=== PATIENT | male | born 1940 | race Caucasian/White ===

== ENCOUNTER 2019-12-28 21:08 | Emergency (ER) | payer MEDICARE, SELFPAY ==
--- NOTE | ~2019-12-28 | CT_ITS ---
EXAMINATION: CT brain wo con, CT facial & cervical spine wo DATE: 12/28/2019 21:55 INDICATION: Face forward fall with loss of consciousness and neck pain. TECHNIQUE: 1. Computed tomography (CT) of the head was performed without intravenous contrast. Sagittal and jan nal reconstructions were obtained. The mA was adjusted according to patient size. Iterative reconstru ction technique was employed. The dose-length product was 681 mGy-cm. 2. CT of the maxillofacial bones and cervical spine was performed without intravenous contrast. Sagit raulito and coronal reconstructions were obtained. Automated exposure control and iterative reconstructio n technique were employed. The dose-length product was 446 mGy-cm. COMPARISON: 01/16/2018 FINDINGS: Head CT: Right frontal scalp hematoma. No calvarial fracture. No acute intracranial hemorrhage, acute infarcti on or abnormal extra axial fluid collection. Symmetric prominence of the sulci consistent with mild t o moderate age-appropriate diffuse cerebral volume loss. Ventricles are normal and symmetric. No mass /mass effect. Mastoid air cells and middle ear cavities are clear. Maxillofacial CT: Maxillofacial bones: Changes of bilateral intraocular lens replacement. Orbits are otherwise normal. No maxillofacial frac tures. Minimal mucosal thickening in the right sphenoid and bilateral ethmoid sinuses. Temporomandibu lar joints are normal alignment. Cervical spine: C4-C6 laminectomies and partial C3 laminectomy. C3-C7 posterior spinal fusion with bilateral vertical natalie and lateral mass screw fixations. Alignment is unchanged with straightening of the normal cervic al lordosis. Severe osteoarthritis at the atlantoaxial articulation. Vertebral body heights are berry l. There is loss of disc height throughout the cervical spine with fusion across portions of the unco vertebral joints and disc spaces from C3 through C7. There is a nondisplaced oblique superior likely hyperextension teardrop fracture at the anterosuperior aspect of the T1 vertebral body. Severe disc h eight loss with degenerative endplate changes at T1-T2 and T2-T3. IMPRESSION: 1. Normal aging brain with mild to moderate diffuse volume loss. No acute intracranial process. 2. No calvarial or maxillofacial fractures. 3. Nondisplaced hyperextension teardrop fracture at the anterosuperior aspect of the T1 vertebral bod y. 4. Stable appearance of an instrumented C3-C7 posterior spinal fusion. This Reviewed, dictated and finalized at location A. ING BALL MARKER IMPRESSION: 1. Normal aging brain with mild to moderate diffuse volume loss. No acute intra cranial process. 2. No calvarial or maxillofacial fractures. 3. Nondisplaced hyperextension teardrop fracture at the anterosuperior aspect o f the T1 vertebral body. 4. Stable appearance of an instrumented C3-C7 posterior spinal fusion. This
--- NOTE | ~2019-12-28 | XR_ITS ---
EXAMINATION: XR shoulder RT min 2V DATE: 12/28/2019 22:08 INDICATION: Right shoulder pain post fall TECHNIQUE: AP internally and externally rotated, AP oblique externally rotated and transscapular Y vi ews of the right shoulder were obtained. COMPARISON: None FINDINGS: Normal alignment. No fracture.Mild glenohumeral and acromioclavicular osteoarthritis. Partially visu alized instrumented posterior spinal fusion in the mid to lower cervical spine. Soft tissues are unre markable. IMPRESSION: Mild osteoarthritis at the right shoulder with no acute osseous abnormality. Reviewed, dictated and finalized at location A. E PURCHASE DRIVER
--- NOTE | ~2019-12-28 | XR_ITS ---
EXAMINATION: XR hand RT min 3V, XR wrist RT min 3V DATE: 12/28/2019 22:07 INDICATION: Posterior right hand and wrist pain. TECHNIQUE: 1. Posteroanterior, ulnar deviation, oblique, and lateral views of the right wrist were obtained. 2. Dorsal palmar, oblique and lateral views of the right hand were obtained. COMPARISON: None. FINDINGS: Alignment of the right hand and wrist are normal. No fracture identified. The articular osteoarthriti s, severe at the first carpometacarpal and fourth and fifth distal interphalangeal joints, moderate s everity at the first interphalangeal and second and third distal interphalangeal joints and mild at t he first metacarpophalangeal and remaining interphalangeal joints. Soft tissues are unremarkable.. IMPRESSION: 1. No acute osseous abnormality. Right hand and wrist. 2. Moderate to severe polyarticular osteoarthritis with typical distribution. Reviewed, dictated and finalized at location A. RVISOR QUALITY CONTROL IMPRESSION: 1. No acute osseous abnormality. Right hand and wrist. 2. Moderate to severe polyarticular osteoarthritis with typical distribution.
--- NOTE | ~2019-12-28 | XR_ITS ---
EXAMINATION: XR shoulder LT min 2V DATE: 12/28/2019 22:07 INDICATION: Bilateral shoulder pain post fall TECHNIQUE: AP internally and externally rotated, AP oblique externally rotated and transscapular Y vi ews of the left shoulder were obtained. COMPARISON: None FINDINGS: Normal alignment. No fracture.Mild glenohumeral and acromioclavicular osteoarthritis. Partially visu alized instrumented posterior spinal fusion in the mid to lower cervical spine. IMPRESSION: Mild osteoarthritis without acute osseous abnormality at the left shoulder. Reviewed, dictated and finalized at location A. T TECHNICIAN/CONTROL ROOM OPERATOR
--- NOTE | ~2019-12-28 | CT_ITS ---
EXAMINATION: CT chest abdomen pelvis w con DATE: 12/28/2019 21:56 INDICATION: Diffuse body pain and more focal left-sided chest pain post fall. TECHNIQUE: Computed tomography (CT) of the chest, abdomen, and pelvis was performed with 100 mL Omnip aque-350 intravenous contrast. Automated exposure control and iterative reconstruction technique were employed. The dose-length product was 1369.61 mGy-cm. COMPARISON: 03/26/2019 FINDINGS: CHEST CT: Mild dependent atelectasis in the bilateral lower lobes. A few bilateral calcified pulmonary nodules consistent with old granulomatous disease. No pneumonia, pulmonary edema, pleural effusion or pneumot horax. Heart size is normal. Atherosclerotic coronary artery calcifications. No pericardial effusion. No pathologically enlarged thoracic lymphadenopathy. Bilateral gynecomastia. Small sliding-type hiat al hernia. Nondisplaced hyperextension teardrop fracture at the anterosuperior aspect of the T1 verte bral body. No other fractures identified. Mild thoracic dextrocurvature with mild to moderate spondyl osis. There are bridging osteophytes at multiple levels consistent with diffuse idiopathic skeletal h yperostosis (DISH). ABDOMEN/PELVIS CT: A few scattered hepatic steatosis with 6 mm low-attenuation cyst at the dome of the liver. Gallbladde r, spleen and bilateral adrenal glands are normal. Several small dystrophic calcification is in the p ancreas consistent with sequela of chronic pancreatitis. Bilateral renal cysts up to 1 cm. There is m ild colonic diverticulosis with a sigmoid predominance. There is no adjacent inflammatory change to suggest diverticulitis. Small bowel and appendix are normal. Postoperative change of prior prostatect rosaura and likely bilateral pelvic lymph node dissections with multiple surgical clips in the pelvis. Bl adder is normal. No free intraperitoneal gas or fluid. No pathologically enlarged abdominal or pelvic lymphadenopathy. There are lumbar spondylosis. Chronic mild superior endplate compression fracture a t L4. IMPRESSION: 1. Nondisplaced hyperextension teardrop fracture at the anterosuperior aspect of the T1 vertebral bod y. No other acute osseous abnormality in the chest, abdomen or pelvis. 2. No acute intrathoracic, abdominal or pelvic process. Reviewed, dictated and finalized at location A. IDENTIFICATION SPECIALIST IMPRESSION: 1. Nondisplaced hyperextension teardrop fracture at the anterosuperior aspect o f the T1 vertebral body. No other acute osseous abnormality in the chest, abdom en or pelvis. 2. No acute intrathoracic, abdominal or pelvic process.
[2019-12-28 21:07] VITALS: BP 153/97; PULSE 100; RESP 14; TEMP 36.5; O2SAT 100
--- NOTE | 2019-12-28 21:25 | ED.FALL ---
HPI - Fall General Chief Complaint: Fall Stated Complaint: fall Time Seen by Provider: 12/28/19 21:25 Source: patient Mode of arrival: EMS Limitations: no limitations History of Present Illness HPI Narrative: The pt is an 79 y/o male who presents to the ED with c/o a recent fall that occurred this evening. The pt states that he was using his walker to go down a 5-6 inch step when his walker collapsed under him. He fell on top of his walker and flat onto his face. The pt states that he hurts from the bottom of [his] feet to the top of [his] head . He reports rt wrist pain, bilateral shoulder pain, CP, ABD pain, CASIANO, lt hand numbess, and neck pain, but denies LOC. The pt has a PMHx of peripheral neuropathy, as well as a SHx of a c-spine fusion. The pt's Tetanus shot is up to date. MD complaint: fall Onset (ago): hour(s) (this evening) Fall from: down stairs (#) (1) Loss of consciousness: none Associated symptoms (after fall): headache, neck pain, chest pain, abdominal pain and other (rt wrist pain, bilateral shoulder pain) Related Data Home Medications Medication Instructions Recorded Confirmed fenofibrate mg 12/28/19 Allergies Allergy/AdvReac Type Severity Reaction Status Date / Time meperidine Allergy Severe anaphylaxis Verified 12/28/19 21:21 Penicillins Allergy Severe anaphylaxis Verified 12/28/19 21:21 narcotics AdvReac Mild Unknown Uncoded 12/28/19 21:21 Review of Systems Review of Systems: All systems reviewed & are unremarkable except as noted in HPI and below Cardiovascular: Cardiovascular: Reports chest pain Gastrointestinal: Gastrointestinal: Reports abdominal pain Musculoskeletal: Musculoskeletal: Reports neck pain and Reports other (rt wrist pain, bilateral shoulder pain) Neurologic: Denies syncope and Reports headache(s) [facility] Past Medical History Medical History (Updated 12/29/19 @ 00:12 by Sukhjinder Jones DO) Bladder cancer Diabetes Hyperlipidemia Hypertension Osteoarthritis Peripheral neuropathy Prostate cancer Spinal stenosis Surgical History Surgical History (Updated 12/28/19 @ 21:37 by Dasiy Wasserman) H/O knee surgery multiple H/O spinal fusion cervical Social History Social History (Updated 12/28/19 @ 21:38 by Daisy Chmielewska) Smoking status: Former smoker Smoking end date: 10/31/71 Exam Narrative: Exam Narrative: APPEARANCE: Well appearing, no apparent distress, well-nourished. HEENT: normocephalic superficial abrasion right forehead with tenderness to palpation with superficial abrasion over right cheek and tenderness to palpation TMs clear bilaterally. Oral mucosa moist. Full range of motion of jaw without pain. EYES: PERRL NECK: C-collar in place supple. No midline tenderness to palpation. Tender palpation bilateral paravertebral muscle C5-7 RESPIRATORY: No respiratory distress. Clear to auscultation bilaterally CARDIOVASCULAR: Regular rate and rhythm without murmurs rubs or gallops. Chest: Tender palpation of the bilateral anterior chest wall ABDOMINAL: Soft, nontender, nondistended, no rebound or guarding MUSCULOSKELETAl: No clubbing cyanosis or edema tender to palpation over the bilateral shoulders right wrist and dorsal hand and bilateral hips pain with movement of any of these joints, no tenderness of the remaining joints, bilateral radial and dorsalis pedis pulse 2+, stocking gradient peripheral neuropathy in lower extremities Back: No midline thoracic or lumbar tenderness to palpation Pelvis: Stable, nontender NEURO: Awake and alert ?3. Follows commands. Speech normal. No focal deficits. SKIN:: Warm, dry. Normal Color Course Course Emergency Course: Discussed with the emergency department Dr. Pederson at [facility] who accepts transfer at this time Discussed with patient plan for transfer in agreement. Reevaluation(s) Reevaluation #1: Discussed case with spinal surgery at [facility]. Advised transferring pt to [place] for an MR
[2019-12-28 21:39] LABS: Blood Urea Nitrogen 39 mg/dL (8-26); Estimated Glomerular Filt Rate 42
[2019-12-28 21:42] LABS: Basophils Percent Auto 0.7 % (0.2-1.2); Eosinophils Absolute Auto 0.2 K/mm3 (0-0.3); Eosinophils Percent Auto 2.8 % (0-4.4); Hematocrit 36.7 % (42.0-52.0); Hemoglobin 12.4 g/dL (14.0-18.0); Immature Granulocyte Absolute 0.05 K/mm3 (0.00-0.031); Immature Granulocyte Percent A 0.8 % (0-0.5); Lymphocytes Absolute Auto 1.43 K/mm3 (0.9-3.2); Lymphocytes Percent Auto 23.6 % (18.3-44.2); Mean Corpuscular HGB Conc 33.8 g/dl (32-36); Mean Corpuscular Hemoglobin 30.2 pg (26-34); Mean Corpuscular Volume 89.3 fl (80-100); Mean Platelet Volume 10.2 fl (7.4-10.4); Monocytes Absolute Auto 0.5 K/mm3 (0.1-0.6); Monocytes Percent Auto 7.4 % (2.6-8.5); Neutrophils Absolute Auto 3.9 K/mm3 (1.3-6.7); Neutrophils Percent Auto 64.7 % (45.5-73.1); Platelet Count Result 178 k/mm3 (150-375); Red Blood Count 4.11 M/mm3 (4.6-6.20); Red Cell Distribution Width 13.6 % (11.5-14.5); White Blood Count 6.1 K/mm3 (4.5-10.0)
[2019-12-28 21:51] LABS: INR 1.1; Prothrombin Time 13.4 Seconds (11.1-14.7)
[2019-12-28 21:52] LABS: Partial Thromboplastin Time 31.3 SECONDS (22.3-36.8)
[2019-12-28 21:56] LABS: Alanine Aminotransferase 33 U/L (4-50); Albumin Level 4.3 g/dL (3.5-5.1); Alkaline Phosphatase 123 U/L (38-126); Aspartate Amino Transferase 34 U/L (17-59); Bilirubin,Total 0.4 mg/dL (0.2-1.3); Blood Urea Nitrogen 39 mg/dL (9-20); Calcium 9.2 mg/dL (8.4-10.2); Carbon Dioxide 24 mmol/L (22-30); Chloride 97 mmol/L (98-107); Estimated Glomerular Filt Rate 49; Glucose 279 mg/dL (75-110); Sodium 137 mmol/L (137-145)
[2019-12-28 22:35] VITALS: BP 168/102; PULSE 96; RESP 17; O2SAT 99
--- NOTE | 2019-12-28 22:36 | PC.NURSE ---
pt requesting pain medication edp notified. no further orders at this time.
[2019-12-28] MEDS: SODIUM CHLORIDE 0.9% IV 1,000 ML 100 ML IV CONT (23:31)
[2019-12-28 23:32] VITALS: BP 157/86; PULSE 93; RESP 12; O2SAT 100
--- NOTE | 2019-12-29 00:09 | PC.NURSE ---
Winkler called at 0005 and gave an ETA of 0020.
[2019-12-29 00:24] VITALS: BP 136/94; PULSE 91; RESP 16; O2SAT 100
[2019-12-29 00:36] VITALS: BP 159/80; PULSE 92; RESP 17; O2SAT 99
== END 2019-12-29 00:39 | disposition short-term general hospital (02) ==
PROVIDERS: Emergency Provider Emergency Medicine
DX: S00.83XA Contusion of other part of head, initial encounter (principal); S60.221A Contusion of right hand, initial encounter; S22.018A Other fracture of first thoracic vertebra, initial encounter for closed fracture; E11.42 Type 2 diabetes mellitus with diabetic polyneuropathy; E78.5 Hyperlipidemia, unspecified; Z85.51 Personal history of malignant neoplasm of bladder; Z85.46 Personal history of malignant neoplasm of prostate; Z98.1 Arthrodesis status; M19.041 Primary osteoarthritis, right hand; M18.9 Osteoarthritis of first carpometacarpal joint, unspecified; M19.012 Primary osteoarthritis, left shoulder; M19.011 Primary osteoarthritis, right shoulder; Z87.891 Personal history of nicotine dependence; W10.9XXA Fall (on) (from) unspecified stairs and steps, initial encounter
CPT/HCPCS: 36415; 70450; 70486; 71260; 72125; 73030; 73110; 73130; 74177; 80053; 85025; 85610; 85730; 96361; 96374; 99285; J0131; J7030; Q9967

== ENCOUNTER 2020-01-05 14:15 | IRF | payer MEDICARE, SELFPAY ==
--- NOTE | ~2020-01-05 | CT_ITS ---
EXAMINATION: CT abdomen pelvis wo con EXAM DATE: 01/10/2020 11:51 INDICATION: Nausea vomiting, abdominal pain. TECHNIQUE: Spiral CT of the abdomen and pelvis was performed without contrast. Axial, coronal and s agittal images were reviewed. The dose-length product (DLP) for this examination was 833.01 mGy-cm. The exposure was tailored according to patient size (auto mA exposure control), and iterative recons truction (ASIR) was used as additional dose reduction technique. Comparison is made to prior examinat ion from 12/28/2019. FINDINGS: Multiple pancreatic calcifications, chronic pancreatitis. The liver, spleen, adrenal gland s and pancreas are otherwise unremarkable. Gallbladder is unremarkable. No biliary obstruction. Po rtal and splenic veins are patent. Kidneys enhance symmetrically. There is no hydronephrosis. Pat ient has likely had prostatectomy. The bladder is unremarkable. There is no retroperitoneal or pel ravi lymphadenopathy. There is mild scattered arteriosclerotic disease. The appendix is normal. There is mild descending/sigmoid colonic diverticulosis. There is no adjacen t inflammatory change to suggest diverticulitis. The stomach and small bowel are unremarkable. There is expected amount of colonic stool. No free intraperitoneal gas. The heart is normal in size. There are no pericardial or pleural effusions. Development of patchy bibasilar airspace disease with volume loss, appearance most consistent with multifocal atelectasis or less likely infection, more o n the left side. There are no osteoblastic or osteolytic lesions identified. IMPRESSION: 1. No acute intra-abdominal findings. 2. Bibasilar airspace disease, appearance most consistent with atelectasis. Superimposed infection n ot excludable. 3. Colonic diverticulosis. 4. Chronic pancreatitis. Reviewed, dictated and finalized at location B. IMPRESSION: 1. No acute intra-abdominal findings. 2. Bibasilar airspace disease, appearance most consistent with atelectasis. Garcia perimposed infection not excludable. 3. Colonic diverticulosis. 4. Chronic pancreatitis.
--- NOTE | ~2020-01-05 | XR_ITS ---
XR abdomen/kub 1V 01/07/2020 03:43 Indication: Nausea, vomiting and epigastric pain Procedure: AP portable supine view of the abdomen Comparison: No prior studies for comparison. Findings: Nonspecific distention of small bowel right mid abdomen measuring up to 2.5 cm. There is mo derate colonic fecal loading. There are surgical clips in the pelvis. No osteolytic or osteoblastic l esions are seen. Impression: 1: Nonspecific bowel gas pattern which may represent ileus or less likely developing small bowel obst ruction. Recommend follow-up as clinically indicated. Reviewed, dictated and finalized at location A. Impression: 1: Nonspecific bowel gas pattern which may represent ileus or less likely devel oping small bowel obstruction. Recommend follow-up as clinically indicated.
--- NOTE | ~2020-01-05 | XR_ITS ---
EXAMINATION: XR abdomen obstructive series DATE: 01/07/2020 10:55 INDICATION: Nausea, vomiting and abdominal pain TECHNIQUE: Supine and upright views of the abdomen. FINDINGS: CT dated 12/28/2019 The visualized lung parenchyma is normal.. There is a nonobstructive bowel gas pattern. Gas and stool are seen throughout the colon to the level of the rectum. There is no free air. There are pancreati c calcifications, consistent with chronic pancreatitis. Bibasilar atelectasis. IMPRESSION: 1. No acute abdominal abnormality. Reviewed, dictated and finalized at location A.
[2020-01-05 14:15] VITALS: BP 189/67; PULSE 82; RESP 18; TEMP 36.6; O2SAT 98; BMI 27.7
--- NOTE | 2020-01-05 16:00 | PC.NURSE ---
This patient, Turner Veliz, was admitted to [facility] Room 230-02 ON 01/05/20 AT 1500. Patient/family oriented to hospital policies and general routines including ID bracelet, bed and alarms, visiting hours, pain management, procedures, bathroom and other care routines, personal items, smoking policy, room service/diet, and visiting hours. Valuables list has been completed. Information on how to activate the Rapid Response Team has been discussed. Patient/Family are encouraged to report perceived risks to care and to ask questions if they do not understand what they are told or what they should do.
[2020-01-05 17:14] LABS: Glucose Point of Care 196 (65-105)
[2020-01-05] MEDS: TRIAMCINOLONE ACET 0.1% CREAM 15 GM TUBE 1 APPLIC TOPICAL (20:56)
[2020-01-05] MEDS: INSULIN GLARGINE (*BKC) 100 UNITS/ML 8 UNITS SUB-Q (20:56)
[2020-01-05] MEDS: GABAPENTIN 100 MG CAPSULE PO (20:56)
[2020-01-05 21:07] LABS: Glucose Point of Care 239 (65-105)
[2020-01-05 22:00] VITALS: BP 146/72; PULSE 88; RESP 19; TEMP 36.6; O2SAT 100
[2020-01-06] MEDS: BENZOCAINE/MENTHOL (*BKC) 18 EA LOZENGE 1 LOZENGE PO (01:23)
[2020-01-06] MEDS: SALINE 0.65% NAS SOLN 44 ML BTL 1 SPRAY NASAL (01:24)
--- NOTE | 2020-01-06 03:30 | PC.NURSE ---
Daylight Savings Time For Daylight Savings Time Ending in the Fall - Clocks are moved back. For Daylight Savings Time Beginning in the Spring - Clocks are moved ahead. For [facility], the time of change occurs at 0200 hrs. Time is taken from the sql server architect. This entry on the patient's chart recognizes the change in time reflected during documentation. Example: 2 entries for vital signs may be charted for 0200 hrs.
[2020-01-06] MEDS: LEVOTHYROXINE SODIUM 100 MCG TABLET PO (05:29)
[2020-01-06 06:00] VITALS: BP 137/71; PULSE 84; RESP 18; TEMP 36.6; O2SAT 97
[2020-01-06 07:04] LABS: Glucose Point of Care 199 (65-105)
[2020-01-06] MEDS: TRIAMCINOLONE ACET 0.1% CREAM 15 GM TUBE 1 APPLIC TOPICAL ×2 (10:18→21:33)
[2020-01-06] MEDS: LIDOCAINE 5% PATCH 3 PATCH TOPICAL (10:19)
[2020-01-06] MEDS: OMEGA 3 POLYUNSAT FATTY ACIDS 1 GM CAP PO (10:19)
[2020-01-06] MEDS: FENOFIBRATE NANOCRYSTALLIZED 145 MG TABLET PO (10:20)
[2020-01-06] MEDS: IRBESARTAN 150 MG TABLET PO (10:20)
[2020-01-06] MEDS: GABAPENTIN 100 MG CAPSULE PO ×2 (10:20→21:33)
[2020-01-06] MEDS: OPTI-GEN TAB 1 TABLET PO ×2 (10:21→18:30)
--- NOTE | 2020-01-06 11:00 | WPDREHABHP ---
H&P: HPI History of Present Illness Chief complaint: T1 and L5 fxs Narrative: Turner Veliz is a 79 year old malHISTORY OF PRESENT ILLNESS: The patient's primary rehab impairment category is Major multiple trauma with brain or spinal injury The etiologic diagnosis is nondisplaced T1 anterior superior osteophyte, endplate fracture, L5 compression fracture, central cord syndrome. I saw this patient [id number] on January 06, 2020 at 11:00 a.m. 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 on December 29, 2019 as a transfer from [facility] after falling and sustaining a hyper extension neck injury with immediate onset of bilateral upper extremity paresthesias appreciated mostly in bilateral hands. Imaging at [facility] revealed possible T1 vertebral body fracture below his prior C3-C7 instrumented posterior spinal fusion. Orthopedic surgery was consulted at [facility]. MRI revealed central stenosis at C2-C3, C7-T1, and T1-T2 without cord signal changes, a T1 nondisplaced anterior superior osteophyte and endplate fracture, and and L5 compression fracture. the patient was diagnosis with central cord syndrome. He opted for non operative management and was placed in a Allen J collar the cervical spine precautions. Cervical spine precautions have been lifted as of December 30, 2019. DVT prophylaxis with sequential compression devices only. He is to follow-up with ortho spine in 2 weeks after discharge. Endocrinology was consulted for his severe hypoglycemic event and recommended Lantus 8 units daily, lispro 3 years t.i.d. with meals and sliding scale low-dose lispro t.i.d. with meals. Patient will need blood glucose monitoring quite closely and adjustments to therapeutic regimen as therapy intensities increases. On January 01, 2020 patient had multiple episodes of emesis, chills, and tremors. Shortly after he developed mental status changes and confusion. CT of the head was negative CT of the abdomen was unremarkable labs unremarkable as well. Respiratory viral panel was negative nasogastric tube was removed on January 03, 2020 he has had no further emesis and no nausea and is tolerating a regular diet he is awake alert well oriented time place and person has a fluent speech Therapy was initiated at the acute care facility and the patient transferred to us from [facility] on January 05, 2020 FALLS OR SURGERIES: The patient has had no major surgeries in the 100 days prior to admission. They had falls in the past year. They had falls with injury in the past year. PAST MEDICAL HISTORY: basal cell carcinoma, bladder cancer, colon polyp, hyperlipidemia, hypertension, otitis externa, actinic keratosis, diabetes mellitus with diabetic neuropathy, bilateral footdrop, prostate cancer, hypercalcemia, cervical spondylitic myelopathy. PAST SURGICAL HISTORY: Bladder surgery, cataract surgery, cervical fusion C3-C7, incision tendon sheath of finger, left knee replacement, radical prostatectomy, carpal tunnel syndrome, TURP SOCIAL HISTORY: former smoker no alcohol or drug abuse FAMILY HISTORY: father with heart disease. Mother with a stroke. Mother also has diabetes mellitus type 2. Uncle with prostate cancer PRIOR LEVEL OF FUNCTION: Eating was INDEPENDENT Oral Care was INDEPENDENT Toileting Hygiene was INDEPENDENT Shower/Bathing was INDEPENDENT Upper Body Dressing was INDEPENDENT Lower Body Dressing was INDEPENDENT Donning/Curtis Footwear was INDEPENDENT Rolling Left and
[2020-01-06 11:42] LABS: Glucose Point of Care 278 (65-105)
[2020-01-06] MEDS: INSULIN ASPART (*BKC) 100 UNITS/ML SUB-Q ×2 (12:17→18:31)
[2020-01-06 15:05] VITALS: BP 113/55; PULSE 92; RESP 16; TEMP 36.3; O2SAT 97
[2020-01-06 17:19] LABS: Glucose Point of Care 222 (65-105)
--- NOTE | 2020-01-06 20:58 | PHAR ---
HOME MEDICATION VERIFIED BY PHARMACY: SYSTANE ULTRA EYE DROPS
[2020-01-06 21:44] LABS: Glucose Point of Care 239 (65-105)
[2020-01-06] MEDS: INSULIN GLARGINE (*BKC) 100 UNITS/ML 8 UNITS SUB-Q (21:45)
[2020-01-06 21:58] VITALS: BP 144/71; PULSE 94; RESP 18; TEMP 36.2; O2SAT 99
[2020-01-07] MEDS: ONDANSETRON HCL ODT 4 MG TABLET PO (01:14)
[2020-01-07] MEDS: BISACODYL 10 MG SUPPOSITORY RECTAL (05:52)
[2020-01-07 06:00] VITALS: BP 137/69; PULSE 91; RESP 18; TEMP 36.3; O2SAT 97
[2020-01-07 06:03] LABS: Basophils Absolute Auto 0.1 K/mm3 (0.0-0.1); Basophils Percent Auto 0.6 % (0.2-1.2); Eosinophils Absolute Auto 0.2 K/mm3 (0-0.3); Eosinophils Percent Auto 1.9 % (0-4.4); Hematocrit 33.4 % (42.0-52.0); Hemoglobin 11.2 g/dL (14.0-18.0); Immature Granulocyte Absolute 0.18 K/mm3 (0.00-0.031); Immature Granulocyte Percent A 2.2 % (0-0.5); Lymphocytes Absolute Auto 1.58 K/mm3 (0.9-3.2); Lymphocytes Percent Auto 19.2 % (18.3-44.2); Mean Corpuscular HGB Conc 33.5 g/dl (32-36); Mean Corpuscular Hemoglobin 29.5 pg (26-34); Mean Corpuscular Volume 87.9 fl (80-100); Mean Platelet Volume 10.3 fl (7.4-10.4); Monocytes Absolute Auto 0.6 K/mm3 (0.1-0.6); Monocytes Percent Auto 6.8 % (2.6-8.5); Neutrophils Absolute Auto 5.7 K/mm3 (1.3-6.7); Neutrophils Percent Auto 69.3 % (45.5-73.1); Platelet Count Result 191 k/mm3 (150-375); Red Cell Distribution Width 13.4 % (11.5-14.5); White Blood Count 8.2 K/mm3 (4.5-10.0)
[2020-01-07 06:25] LABS: Alanine Aminotransferase 45 U/L (4-50); Albumin Level 3.5 g/dL (3.5-5.1); Alkaline Phosphatase 103 U/L (38-126); Aspartate Amino Transferase 40 U/L (17-59); Bilirubin,Total 0.6 mg/dL (0.2-1.3); Blood Urea Nitrogen 21 mg/dL (9-20); Calcium 8.7 mg/dL (8.4-10.2); Carbon Dioxide 27 mmol/L (22-30); Chloride 100 mmol/L (98-107); Estimated CRCL calculation 48 ml/min; Estimated Glomerular Filt Rate 58; Glucose 249 mg/dL (75-110); Potassium 3.9 mmol/L (3.4-5.0); Sodium 134 mmol/L (137-145)
[2020-01-07 07:17] LABS: Glucose Point of Care 236 (65-105)
[2020-01-07] MEDS: IRBESARTAN 150 MG TABLET PO (09:18)
[2020-01-07] MEDS: FENOFIBRATE NANOCRYSTALLIZED 145 MG TABLET PO (09:21)
[2020-01-07] MEDS: OMEGA 3 POLYUNSAT FATTY ACIDS 1 GM CAP PO (09:21)
[2020-01-07] MEDS: GABAPENTIN 100 MG CAPSULE PO (09:21)
[2020-01-07] MEDS: OPTI-GEN TAB 1 TABLET PO (09:22)
[2020-01-07] MEDS: ONDANSETRON INJ 4 MG/2 ML VIAL IV PUSH (09:33)
--- NOTE | 2020-01-07 11:26 | WPDNEURORHBP ---
Subjective Date/time seen: 01/07/20 11:26 Review of Systems Review of Systems: All systems reviewed & are unremarkable except as noted in HPI and below (c/o constipation with no BM) Functional Status Ambulation Ability Ability to Ambulate 10 Feet: Minimum Assistance X 1 Ability to Ambulate 50 Feet With 2 Turns: Total Assistance X 1 Ambulation Assistive Devices: Walker, Wheeled Exam Const: General: no acute distress, well developed, alert and awake Nutritional Appearance: average body habitus Orientation/consciousness: patient oriented x3 HENMT: Head: normocephalic General nose exam: Normal external nose present Face and sinus: normal facial exam Mouth: Yes Normal oral and palatal mucosa present Neck: Neck: normal visual inspection Resp: Effort & Inspection: normal respiratory effort and able to speak in complete sentences Auscultation: clear to auscultation bilaterally Cardio: Rhythm: regular rhythm Skin: General skin exam: no rashes or lesions noted Neuro: General: patient oriented x3 and moves all extremities Cranial nerves: Yes CN's II-XII intact bilaterally, Yes Equal, round and reactive pupils present, Yes Nystagmus not present, Yes Normal facial strength present, Yes facial symmetry, Yes Midline tongue present, Yes Symmetric palate elevation present and Yes Ability to bilaterally elevate shoulders present Cognition (Neuro): normal cognition Speech: normal speech Motor exam (neuro): 5/5 motor strength present throughout (4/5 symmetrical) Deep tendon reflexes (DTR's): Right triceps reflex intensity grade: 1+, Left triceps reflex intensity grade: 1+, Rt Biceps (C5, C6): 1+, Left biceps reflex intensity grade: 1+, Right brachioradialis reflex intensity grade: 1+, Left brachioradialis reflex intensity grade: 1+, Right patellar reflex intensity grade: 1+, Left patellar reflex intensity grade: 1+, Right ankle reflex intensity grade: 1+ and Left ankle reflex intensity grade: 1+ Plantar Reflex Responses: downgoing: bilateral Objective Data Vital Signs Vital Signs: Vital Signs - 24 hr 01/06/20 15:05 01/06/20 21:58 01/07/20 06:00 Temperature 36.3 C L 36.2 C L 36.3 C L Pulse Rate 92 94 91 Respiratory Rate 16 18 18 Blood Pressure 113/55 L 144/71 H 137/69 Pulse Oximetry 97 99 97 Intake/Output Intake/Output: Intake & Output 03/06/20 03/07/20 03/08/20 03/09/20 22:59 22:59 23:59 23:59 Intake Total 0 Balance 0 Meds/Results Medications: Active Medications Generic Name Dose Route Start Last Admin Trade Name Freq PRN Reason Stop Dose Admin Benzocaine 1 lozenge 01/05/20 23:52 01/06/20 01:23 Chloraseptic Lozenge PO 1 lozenge PRN PRN Administration Sore Throat Cyclobenzaprine HCl 5 mg 01/05/20 17:17 Flexeril PO TID PRN Muscle Spasm Dextrose 12.5 gm 01/05/20 19:00 Dextrose 50% Syringe IV PUSH PRN PRN Hypoglycemia Protocol Fenofibrate 160 mg 01/08/20 09:00 Fenofibrate PO DAILY [facility] Fish Oil 1 gm 01/06/20 09:00 01/07/20 09:21 Lovaza PO 1 gm QAM KRIS Administration Gabapentin 400 mg 01/07/20 21:00 Neurontin PO Q12HR [facility] Glucagon 1 mg 01/05/20 19:00 Glucagon For Inj IM PRN PRN Hypoglycemia Protocol Glucose 15 gm 01/05/20 19:00 Glutose 15 PO PRN PRN Hypoglycemia Protocol Dextrose 1,000 mls @ 100 mls/hr 01/05/20 19:00 Dextrose 5% 1,000 Ml IVPB PRN PRN Hypoglycemia Protocol Sodium Chloride 1,000 mls @ 75 mls/hr 01/07/20 10:10 Normal Saline Iv IV CONT .[id number] [facility] Insulin Aspart 2 - 5 units 01/06/20 08:00 01/07/20 09:15 Novolog SUB-Q Not Given TIDWM [facility] Protocol Insulin Glargine 8 units 01/05/20 21:00 01/06/20 21:45 Lantus SUB-Q 8 units HS [facility] Administration Irbesartan 150 mg 01/06/20 09:00 01/07/20 09:18 Avapro PO 150 mg DAILY [facility] Administration Levothyroxine Sodium 112 mcg 01/08/20 06:30
[2020-01-07 12:25] LABS: Glucose Point of Care 222 (65-105)
[2020-01-07] MEDS: INSULIN ASPART (*BKC) 100 UNITS/ML SUB-Q ×2 (13:07→17:05)
[2020-01-07 14:00] VITALS: BP 122/60; PULSE 63; RESP 18; TEMP 36.1; O2SAT 98
--- NOTE | 2020-01-07 14:02 | PHAR ---
The Pharmacy is unable to verify home meds of Macular shield AREDS 2 multivitamin and [place] Shield ec fish oil due to no markings on capsules.
[2020-01-07 14:26] VITALS: BMI 27.7
--- NOTE | 2020-01-07 16:15 | PCNSR ---
On 01/07/20, the student, Maria Barros, provided care and completed [facility] documentation on this patient. I have reviewed the student's documentation and agree with the findings.
--- NOTE | 2020-01-07 16:30 | RPD ---
INDIVIDUALIZED PLAN OF CARE FOR Turner Veliz Brief Synthesis of Pre-Admission Screen, Post-Admission Evaluation and Therapy Evaluations: The patient presents to rehab with Major Multiple Trauma With Brain or Spinal Jiluzz-Cph-[id number] T1 anterior-superior osteophyte/endplate fracture-L5 compression fracture E-Central cord syndrome. Comorbidities include Basal cell carcinoma, bladder cancer, colon polyp, hyperlipidemia, hypertension, otitis externa, actinic keratosis, diabetes mellitus with diabetic neuropathy and hyperglycemia, bilateral foot drop, prostate cancer, hypercalcemia, cervical spondylytic myelopathy, hyperglycemia event, peripheral neuropathy type parasthesia. The patient requires physician services for medical oversight, management of current medical conditions in setting of prior comorbidities, and pain management. He will be followed at least three times a week by the rehabilitation physician. Orthopedics may see the patient at the frequency of their discretion. Labs will be drawn to monitor blood counts and electrolytes periodically. The patient requires nursing services for DVT prophylactics, infection protection, medication management and education, pressure relief, and wound care. Deficits include:ADLs, Balance, Endurance, Mobility, Pain Management, ROM, Safety, Strength, Transfers B Operator/Case Management for: Discharge Planning and Patient/Family Counseling Physical Therapy: 5 days per week for 90 minutes. Treatments may include: Therapeutic Exercise, Gait Training, Neuromuscular Re-education, Transfer Training, Community Reintegration, Bed Mobility, Patient/Family Education, Wheelchair Mobility Group Therapy/Concurrent Therapy Rationales: -Improve attention span during functional activities in a distracted environment. -Enhance problem solving and/or adequate judgment skills during functional activities in a distracted environment. -Promote increased safety awareness in a distracted environment to reduce fall risk with functional tasks, transfers, and ambulation to allow a more safe, self-sufficient return to the home environment. -Improve dynamic balance skills to promote safety and independence with functional activities in a distracted environment for maximum gain. Occupational Therapy: 5 days per week for 90 minutes. Treatments may include: Therapeutic Exercise, Therapeutic Activity, Cognitive Training, Self-Care Transfer Training, Community Reintegration, Home Management, Patient/Family Education, Wheelchair Mobility Training, Energy Conservation Training Group Therapy/Concurrent Therapy Rationales: -Allow therapist to observe and teach generalization and carry-over of skills learned in individual therapy. -Enhance problem solving and sequencing skills during therapeutic activities in a distracted environment. -Promote increased safety awareness in a realistic setting to reduce fall risk with functional tasks due to visual and verbal distractions. -Increase functional level with ADLs, ADL transfers and use of adaptive equipment through therapeutic activities with others while promoting safety to allow a more safe, self-sufficient return home. Medical Prognosis: Good Anticipated Length of Stay: 12 days Rehab Goals: Eating Goal: 06-Independent Oral Hygiene Goal: 06-Independent Toileting Hygiene Goal: 06-Independent Shower/Bathe Self Goal: 06-Independent Upper Body Dressing Goal: 06-Independent Lower Body Dressing Goal: 06-Independent Putting On/Taking Off Footwear Goal: 03-Partial/Moderate Assistance Rolling Left and Right Goal: 06-Independent Sit to Lying Goal: 06-Independent Lying to Sitting on Side of Bed Goal: 04-Supervision or Touching Assistance Sit to Stand Goal: 05-Setup or Clean Up Assistance Chair/Kuc-xg-Eibgw Transfer Goal: 05-Setup or Clean Up Assistance Toilet Transfer Goal: 05-Setup or Clean Up Assistance Car Transfer Goal: 06-Independent Walk 10' Goal: 06-Independent Walk 50' with Two Turns Goal: 06-I
[2020-01-07 17:05] LABS: Glucose Point of Care 204 (65-105)
--- NOTE | 2020-01-07 17:37 | PM.IMCN ---
Assessment and Plan Assessment and plan (1) Constipation: Code(s): K59.00 - Constipation, unspecified Status: Acute Assessment and Plan: Turner Veliz is a 79 year old male Status post fall injury to cervical spine patient was initially seen at the [facility] Neurosurgery Department however patient decided not to go through the surgery and decided medical management he was transferred to [place] [facility] for further physical therapy, we were consulted as patent had c/o abdominal pain and nausea, apparently patient was constipated, he had large BM after that patient abdominal pain and nausea has resolved and he is able to tolerate. discussed with patient nurse will start the patient on soft diabetic diet diet, HPI Data of Consult Consult date: 01/07/20 Requesting Physician: Tono Wolf MD Primary Care Provider: UNKNOWN,DOCTOR Consult Narrative Narrative: Turner Veliz is a 79 year old male Status post fall injury to cervical spine patient was initially seen at the [facility] Neurosurgery Department however patient decided not to go through the surgery and decided medical management he was transferred to [place] [facility] for further physical therapy, we were consulted as patent had c/o abdominal pain and nausea, apparently patient was constipated, he had large BM after that patient abdominal pain and nausea has resolved and he is able to tolerate. discussed with patient nurse will start the patient on soft diabetic diet diet Review of Systems Review of Systems: All systems reviewed & are unremarkable except as noted in HPI and below PMFSH Past Medical History Medical History (Updated 01/07/20 @ 11:32 by Joseph Alfaro MD) Bilateral foot-drop Bladder cancer Cervical myelopathy Diabetes Diabetic peripheral neuropathy Hyperlipidemia Hypertension Osteoarthritis Peripheral neuropathy Prostate cancer Spinal stenosis Surgical History Surgical History H/O knee surgery multiple H/O spinal fusion cervical Family History Family History Other Unknown family medical history Social History Social History Smoking status: Former smoker Smoking end date: 10/31/71 Alcohol intake: never Substance use: never Substance use type: does not use Gender identity (if verbalized by the patient): Male Spiritual care concerns: No Agree to blood products: Yes Meds Home Medications and Allergies Home Medications Medication Instructions Recorded Confirmed Type fenofibrate 145 mg PO DAILY 12/28/19 History cyclobenzaprine 5 mg PO TID PRN 01/05/20 01/05/20 History fenofibrate nanocrystallized 145 mg PO DAILY 01/05/20 01/05/20 History fenofibric acid (choline) 135 mg PO DAILY 01/05/20 01/05/20 History [Trilipix] gabapentin 100 mg PO BID 01/05/20 01/05/20 History insulin glargine [Lantus U-100 8 unit SUBCUT HS 01/05/20 01/05/20 History Insulin] irbesartan 150 mg PO DAILY 01/05/20 01/05/20 History levothyroxine 100 mcg PO DAILY 01/05/20 01/05/20 History lidocaine 3 patch TOPICAL DAILY 01/05/20 01/05/20 History triamcinolone acetonide 1 applic TOPICAL BID 01/05/20 01/05/20 History Allergies Allergy/AdvReac Type Severity Reaction Status Date / Time meperidine Allergy Severe anaphylaxis Verified 12/28/19 21:21 Penicillins Allergy Severe anaphylaxis Verified 12/28/19 21:21 chocolate flavor Allergy Anaphylaxis Verified 01/05/20 17:22 egg Allergy Anaphylaxis Verified 01/05/20 17:22 narcotics AdvReac Mild Unknown Uncoded 12/28/19 21:21 Vital Signs Vital Signs - 24 hr 01/06/20 21:58 01/07/20 06:00 01/07/20 14:00 Temperature 97.2 F L 97.4 F L 97.0 F L Pulse Rate 94 91 63 Respiratory Rate 18 18 18 Blood Pressure 144/71 H 137/69 122/60 Pulse Oximetry 99 97 98 Exam Narrative: Exam Narrative: Patient is elderly frail Const:
[2020-01-07] MEDS: DOCUSATE SODIUM 100 MG CAPSULE PO (20:09)
[2020-01-07] MEDS: TRIAMCINOLONE ACET 0.1% CREAM 15 GM TUBE 1 APPLIC TOPICAL (20:09)
[2020-01-07] MEDS: GABAPENTIN 400 MG CAPSULE PO (20:09)
[2020-01-07 20:12] LABS: Glucose Point of Care 217 (65-105)
[2020-01-07] MEDS: INSULIN GLARGINE (*BKC) 100 UNITS/ML 20 UNITS SUB-Q (20:12)
[2020-01-07 22:00] VITALS: BP 120/57; PULSE 88; RESP 18; TEMP 36.4; O2SAT 99
[2020-01-08] MEDS: LEVOTHYROXINE SODIUM 112 MCG TABLET PO (05:51)
[2020-01-08] MEDS: BENZOCAINE/MENTHOL (*BKC) 18 EA LOZENGE 1 LOZENGE PO (05:52)
[2020-01-08 06:00] VITALS: BP 127/65; PULSE 87; RESP 18; TEMP 36.9; O2SAT 94
[2020-01-08 06:38] LABS: Glucose Point of Care 194 (65-105)
[2020-01-08 08:00] VITALS: PULSE 87; RESP 18; O2SAT 94
[2020-01-08] MEDS: GABAPENTIN 400 MG CAPSULE PO ×2 (11:16→21:49)
[2020-01-08] MEDS: FENOFIBRATE 160 MG TABLET PO (11:16)
[2020-01-08] MEDS: DOCUSATE SODIUM 100 MG CAPSULE PO ×2 (11:17→21:49)
[2020-01-08] MEDS: IRBESARTAN 150 MG TABLET PO (11:17)
[2020-01-08] MEDS: TRIAMCINOLONE ACET 0.1% CREAM 15 GM TUBE 1 APPLIC TOPICAL ×2 (11:20→21:50)
[2020-01-08 12:04] LABS: Glucose Point of Care 229 (65-105)
[2020-01-08] MEDS: INSULIN ASPART (*BKC) 100 UNITS/ML SUB-Q (12:43)
[2020-01-08 14:00] VITALS: BP 104/48; PULSE 91; RESP 18; TEMP 36.4; O2SAT 100
--- NOTE | 2020-01-08 14:06 | WPDNEURORHBP ---
Subjective Date/time seen: 01/08/20 14:06 Interval history: this 79-year-old gentleman who is here because of T1 and L5 fracture has a [place] J collar for stabilization of his cervical spine and also have Cervical myelopathy peripheral neuropathy but engage in therapy his nausea and vomiting has resolved and is feeling much better the abdominal series was negative The patient denies any further headache nausea vomiting chest pain shortness of breath her belly ache diarrhea fever chills or sore throat Review of Systems Review of Systems: All systems reviewed & are unremarkable except as noted in HPI and below Functional Status Ambulation Ability Ability to Ambulate 10 Feet: Minimum Assistance X 1 Ability to Ambulate 50 Feet With 2 Turns: Minimum Assistance X 1 Ambulation Assistive Devices: Walker, Wheeled Exam Const: General: comfortable and no acute distress HENMT: General nose exam: Normal nares present Mouth: Yes moist mucous membranes Eyes: General: appearance normal, both eyes and all related structures Neck: Other: instructed woman's due to [place] J collar Resp: Effort & Inspection: normal respiratory effort Auscultation: clear to auscultation bilaterally Cardio: Rate: regular rate Rhythm: regular rhythm GI: GI Palp: Yes Soft to palpation Auscultation: normal bowel sounds Skin: General skin exam: normal color and no rashes or lesions noted Neuro: Other: patient is awake and alert will orient to time place and person has normal speech and language function normal cranial examination decreased strength in upper extremities more so than the lower extremities with depressed reflexes and equivocal Babinski sign is able to walk with the assistance and a walker quite a bit Extrem: General: normal to inspection Other: evidence of peripheral neuropathy Psych: Mental Status: mental status grossly normal Objective Data Vital Signs Vital Signs: Vital Signs - 24 hr 01/07/20 22:00 01/08/20 06:00 01/08/20 08:00 Temperature 36.4 C L 36.9 C Pulse Rate 88 87 87 Respiratory Rate 18 18 18 Blood Pressure 120/57 L 127/65 Pulse Oximetry 99 94 94 Intake/Output Intake/Output: Intake & Output 01/05/20 01/06/20 01/07/20 01/08/20 22:59 23:59 23:59 23:59 Intake Total 220 480 Balance 220 480 Meds/Results Medications: Active Medications Generic Name Dose Route Start Last Admin Trade Name Freq PRN Reason Stop Dose Admin Benzocaine 1 lozenge 01/05/20 23:52 01/08/20 05:52 Chloraseptic Lozenge PO 1 lozenge PRN PRN Administration Sore Throat Bisacodyl 10 mg 01/07/20 12:54 Dulcolax Tab PO DAILY PRN Constipation Cyclobenzaprine HCl 5 mg 01/05/20 17:17 Flexeril PO TID PRN Muscle Spasm Dextrose 12.5 gm 01/05/20 19:00 Dextrose 50% Syringe IV PUSH PRN PRN Hypoglycemia Protocol Docusate Sodium 100 mg 01/07/20 21:00 01/08/20 11:17 Colace Capsule PO 100 mg Q12HR [facility]IS Administration Fenofibrate 160 mg 01/08/20 09:00 01/08/20 11:16 Fenofibrate PO 160 mg DAILY [facility]IS Administration Gabapentin 400 mg 01/07/20 21:00 01/08/20 11:16 Neurontin PO 400 mg Q12HR [facility] Administration Glucagon 1 mg 01/05/20 19:00 Glucagon For Inj IM PRN PRN Hypoglycemia Protocol Glucose 15 gm 01/05/20 19:00 Glutose 15 PO PRN PRN Hypoglycemia Protocol Dextrose 1,000 mls @ 100 mls/hr 01/05/20 19:00 Dextrose 5% 1,000 Ml IVPB PRN PRN Hypoglycemia Protocol Insulin Aspart 2 - 5 units 01/06/20 08:00 01/08/20 12:43 Novolog SUB-Q 2 units TIDWM KRIS Administration Protocol Insulin Glargine 20 units 01/07/20 21:00 01/07/20 20:12 Lantus SUB-Q 20 units HS [facility]IS Administration Irbesartan 150 mg 01/06/20 09:00 01/08/20 11:17 Avapro PO 150 mg DAILY [facility] Administration Levothyroxine Sodium 112 mcg 01/08/20 06:30 01/08/20 05:51 Synthroid PO 112
--- NOTE | 2020-01-08 15:21 | PCCCNOTE ---
On 01/08/20, the student, [Mariusz Monte], provided care and completed [facility] documentation on this patient. I have reviewed the student's documentation and agree with the findings.
[2020-01-08 17:19] LABS: Glucose Point of Care 193 (65-105)
[2020-01-08 22:00] VITALS: BP 106/59; PULSE 92; RESP 18; TEMP 36.4; O2SAT 93
[2020-01-08] MEDS: INSULIN GLARGINE (*BKC) 100 UNITS/ML 20 UNITS SUB-Q (22:05)
[2020-01-08 22:36] LABS: Glucose Point of Care 306 (65-105)
[2020-01-09 04:36] LABS: Hemoglobin A1C 8.5 % (<5.7)
[2020-01-09 06:00] VITALS: BP 118/59; PULSE 86; RESP 19; TEMP 36.8; O2SAT 99
[2020-01-09] MEDS: LEVOTHYROXINE SODIUM 112 MCG TABLET PO (06:29)
[2020-01-09 07:16] LABS: Glucose Point of Care 218 (65-105)
[2020-01-09 08:00] VITALS: PULSE 90; RESP 18; O2SAT 100
[2020-01-09] MEDS: INSULIN ASPART (*BKC) 100 UNITS/ML SUB-Q ×2 (09:04→13:44)
[2020-01-09] MEDS: BISACODYL 5 MG TABLET EC 10 MG PO (09:06)
[2020-01-09] MEDS: GABAPENTIN 400 MG CAPSULE PO ×2 (09:07→20:51)
[2020-01-09] MEDS: DOCUSATE SODIUM 100 MG CAPSULE PO ×2 (09:07→20:51)
[2020-01-09] MEDS: IRBESARTAN 150 MG TABLET PO (09:07)
[2020-01-09] MEDS: FENOFIBRATE 160 MG TABLET PO (09:07)
[2020-01-09] MEDS: TRIAMCINOLONE ACET 0.1% CREAM 15 GM TUBE 1 APPLIC TOPICAL ×2 (09:09→20:51)
--- NOTE | 2020-01-09 11:46 | WPDNEURORHBP ---
Subjective Date/time seen: 01/09/20 11:46 Interval history: This 79-year-old gentleman is here after having had T1 and L5 fracture with underlying cervical myelopathy bilateral foot drop and also evidence of peripheral neuropathy his bearings [place] J collar and doing fairly well however his diabetes is not well controlled he is telling me that he was taking Humalog 50 50 at home and it was controlling his blood sugar according to the measure he has attached to his skin which tells his blood sugar and he uses it appropriately and his helps him to that respect Beside above the patient's abdominal pain is gone his does not have any nausea or vomiting doing fairly well denies any headache chest pain shortness of breath abdominal pain fever chills sore throat Review of Systems Review of Systems: All systems reviewed & are unremarkable except as noted in HPI and below Functional Status Ambulation Ability Ability to Ambulate 10 Feet: Contact Guard Ability to Ambulate 50 Feet With 2 Turns: Contact Guard Ability to Ambulate 150 Feet: Contact Guard Ambulation Assistive Devices: Walker, Wheeled Exam Const: General: comfortable and no acute distress HENMT: General nose exam: Normal nares present Mouth: Yes moist mucous membranes Eyes: General: appearance normal, both eyes and all related structures Neck: Neck: no JVD Other: patient is wearing [place] J collar and the range of motion of the neck of course cannot be tested Resp: Effort & Inspection: normal respiratory effort Auscultation: clear to auscultation bilaterally Cardio: Rate: regular rate Rhythm: regular rhythm GI: GI Palp: Yes Soft to palpation Auscultation: normal bowel sounds Skin: General skin exam: normal color and no rashes or lesions noted Neuro: Other: patient is awake alert well oriented time place and person is speech and language functions are normal cranial examination is normal his strength in the lower extremities is less than optimal and likewise the upper extremities are also weak with the evidence of peripheral neuropathy depressed reflexes sensory deficit lower extremities more so than the upper extremities and bilateral footdrop which has been present for some time Extrem: Other: evidence of peripheral neuropathy and loss of small muscles of the hands and also footdrop Psych: Mental Status: mental status grossly normal Objective Data Vital Signs Vital Signs: Vital Signs - 24 hr 01/08/20 14:00 01/08/20 22:00 01/09/20 06:00 Temperature 36.4 C L 36.4 C 36.8 C Pulse Rate 91 92 86 Respiratory Rate 18 18 19 Blood Pressure 104/48 L 106/59 L 118/59 L Pulse Oximetry 100 93 99 Intake/Output Intake/Output: Intake & Output 01/06/20 01/07/20 01/08/20 01/09/20 23:59 23:59 23:59 23:59 Intake Total 220 720 240 Balance 220 720 240 Meds/Results Medications: Active Medications Generic Name Dose Route Start Last Admin Trade Name Freq PRN Reason Stop Dose Admin Benzocaine 1 lozenge 01/05/20 23:52 01/08/20 05:52 Chloraseptic Lozenge PO 1 lozenge PRN PRN Administration Sore Throat Bisacodyl 10 mg 01/07/20 12:54 01/09/20 09:06 Dulcolax Tab PO 10 mg DAILY PRN Administration Constipation Cyclobenzaprine HCl 5 mg 01/05/20 17:17 Flexeril PO TID PRN Muscle Spasm Dextrose 12.5 gm 01/05/20 19:00 Dextrose 50% Syringe IV PUSH PRN PRN Hypoglycemia Protocol Docusate Sodium 100 mg 01/07/20 21:00 01/09/20 09:07 Colace Capsule PO 100 mg Q12HR KRIS Administration Fenofibrate 160 mg 01/08/20 09:00 01/09/20 09:07 Fenofibrate PO 160 mg DAILY KRIS Administration Gabapentin 400 mg 01/07/20 21:00 01/09/20 09:07 Neurontin PO 400 mg Q12HR [facility] Administration Glucagon 1 mg 01/05/20 19:00 Glucagon For Inj IM PRN PRN Hypoglycemia Protocol Glucose 15 gm 01/05/20 19:00 Glutose 15 PO PRN PRN Hypoglycemia Protocol Dextr
[2020-01-09 11:54] LABS: Glucose Point of Care 235 (65-105)
[2020-01-09 13:30] VITALS: BP 99/48
[2020-01-09 14:00] VITALS: BP 107/54; PULSE 92; RESP 18; TEMP 36.2; O2SAT 100
[2020-01-09 16:59] LABS: Glucose Point of Care 219 (65-105)
--- NOTE | 2020-01-09 17:11 | PHAR ---
HOME MED VERIFIED = HUMALOG MIX 50/50 [place]
[2020-01-09] MEDS: PHARMACIST COMMUNICATION ORDER 1 EACH XX (19:13)
[2020-01-09 21:25] VITALS: PULSE 92; RESP 18; O2SAT 100
[2020-01-09 22:00] VITALS: BP 94/60; PULSE 100; RESP 20; TEMP 36.4; O2SAT 100
[2020-01-09 22:20] LABS: Glucose Point of Care 229 (65-105)
[2020-01-10] MEDS: LEVOTHYROXINE SODIUM 112 MCG TABLET PO (05:59)
[2020-01-10 06:00] VITALS: BP 112/69; PULSE 96; RESP 20; TEMP 36.4; O2SAT 97
[2020-01-10 07:35] LABS: Glucose Point of Care 216 (65-105)
[2020-01-10 09:27] LABS: Basophils Absolute Auto 0.1 K/mm3 (0.0-0.1); Basophils Percent Auto 0.6 % (0.2-1.2); Eosinophils Absolute Auto 0.2 K/mm3 (0-0.3); Eosinophils Percent Auto 2.7 % (0-4.4); Hematocrit 34.6 % (42.0-52.0); Hemoglobin 11.5 g/dL (14.0-18.0); Immature Granulocyte Absolute 0.44 K/mm3 (0.00-0.031); Immature Granulocyte Percent A 5.2 % (0-0.5); Lymphocytes Absolute Auto 1.74 K/mm3 (0.9-3.2); Lymphocytes Percent Auto 20.4 % (18.3-44.2); Mean Corpuscular HGB Conc 33.2 g/dl (32-36); Mean Corpuscular Hemoglobin 29.4 pg (26-34); Mean Corpuscular Volume 88.5 fl (80-100); Mean Platelet Volume 9.8 fl (7.4-10.4); Monocytes Absolute Auto 0.6 K/mm3 (0.1-0.6); Neutrophils Absolute Auto 5.5 K/mm3 (1.3-6.7); Neutrophils Percent Auto 64.1 % (45.5-73.1); Platelet Count Result 279 k/mm3 (150-375); Red Blood Count 3.91 M/mm3 (4.6-6.20); Red Cell Distribution Width 13.7 % (11.5-14.5); White Blood Count 8.5 K/mm3 (4.5-10.0)
[2020-01-10] MEDS: ONDANSETRON HCL ODT 4 MG TABLET PO (09:29)
[2020-01-10] MEDS: MAG HYDROX/AL HYDROX/SIMETH 30 ML UDC PO (09:29)
[2020-01-10 09:37] LABS: Alanine Aminotransferase 39 U/L (4-50); Albumin Level 3.6 g/dL (3.5-5.1); Alkaline Phosphatase 107 U/L (38-126); Aspartate Amino Transferase 27 U/L (17-59); Bilirubin,Total 0.5 mg/dL (0.2-1.3); Blood Urea Nitrogen 26 mg/dL (9-20); Calcium 8.8 mg/dL (8.4-10.2); Carbon Dioxide 29 mmol/L (22-30); Chloride 99 mmol/L (98-107); Estimated CRCL calculation 39 ml/min; Estimated Glomerular Filt Rate 45; Glucose 246 mg/dL (75-110); Potassium 4.2 mmol/L (3.4-5.0); Sodium 135 mmol/L (137-145)
--- NOTE | 2020-01-10 09:43 | PCPTNOTE ---
Patient refused treatment this session due to not feeling well. Attempted to see patient at 8:30 and 9:35 for PT. Patient states that he has the chills and has been vomiting and spitting up. Patient reports that if he tried to get up for therapy he might vomit everywhere. Patient declined therapy at this time. RN informed.
[2020-01-10 10:10] VITALS: BP 129/67; PULSE 96; RESP 18; TEMP 36.3; O2SAT 100
[2020-01-10] MEDS: DOCUSATE SODIUM 100 MG CAPSULE PO ×2 (10:15→21:16)
[2020-01-10] MEDS: FENOFIBRATE 160 MG TABLET PO (10:16)
[2020-01-10] MEDS: GABAPENTIN 400 MG CAPSULE PO ×2 (10:16→21:17)
[2020-01-10] MEDS: IRBESARTAN 150 MG TABLET PO (10:17)
--- NOTE | 2020-01-10 11:46 | WPDNEURORHBP ---
Subjective Date/time seen: January 10, 2020 Interval history: this 79-year-old gentleman is here on the acute rehab after having had T1 fracture and L5 fracture. He has underlying diabetes mellitus which at best is fair control he is complaining of abdominal pain and nausea couple of days ago his abdominal x-rays were negative and I had a medical consult on him he stabilize for couple of days however today's nausea is more he is also complaining of shaking of the right arm and has happened at [facility] without any loss of consciousness or headaches. Is likely that the shaking of the arm might be related to cervicothoracic myelopathy however I would like to make sure that there is nothing intracranially happening and nothing in his abdomen causing nausea Review of Systems Review of Systems: All systems reviewed & are unremarkable except as noted in HPI and below Functional Status Ambulation Ability Ability to Ambulate 10 Feet: Contact Guard Ability to Ambulate 50 Feet With 2 Turns: Contact Guard Ability to Ambulate 150 Feet: Contact Guard Ambulation Assistive Devices: Walker, Wheeled Transfers Ability Ability to Transfer In/Out of Chair: Moderate Assistance X 1 Exam Const: General: no acute distress and uncomfortable Other: patient is uncomfortable due to nausea and concerned about the shaking of the right arm without any loss of consciousness or headache HENMT: General nose exam: Normal nares present Mouth: Yes moist mucous membranes Eyes: General: appearance normal, both eyes and all related structures Neck: Other: patient has [place] J collar and neck movements are limited Resp: Effort & Inspection: normal respiratory effort Auscultation: clear to auscultation bilaterally Cardio: Rate: regular rate Rhythm: regular rhythm GI: GI Palp: Yes Soft to palpation Auscultation: normal bowel sounds Other: little tenderness generalized in abdomen however no focal tenderness Skin: General skin exam: normal color and no rashes or lesions noted Neuro: Other: patient is awake alert well oriented time place and person is speech and language functions are normal the strength in the lower extremities in the upper extremities improved he does have evidence of peripheral neuropathy and bilateral footdrop of longstanding duration Extrem: Other: evidence of peripheral neuropathy and footdrop is stable Psych: Mental Status: mental status grossly normal Objective Data Vital Signs Vital Signs: Vital Signs - 24 hr 01/09/20 13:30 01/09/20 14:00 01/09/20 21:25 Temperature 36.2 C L Pulse Rate 92 92 Respiratory Rate 18 18 Blood Pressure 99/48 L 107/54 L Pulse Oximetry 100 100 01/09/20 22:00 01/10/20 06:00 01/10/20 10:10 Temperature 36.4 C L 36.4 C 36.3 C L Pulse Rate 100 96 96 Respiratory Rate 20 20 18 Blood Pressure 94/60 L 112/69 129/67 Pulse Oximetry 100 97 100 Intake/Output Intake/Output: Intake & Output 01/07/20 01/08/20 01/09/20 01/10/20 23:59 23:59 23:59 23:59 Intake Total 220 720 720 240 Balance 220 720 720 240 Meds/Results Medications: Active Medications Generic Name Dose Route Start Last Admin Trade Name Freq PRN Reason Stop Dose Admin Al Hydrox/Mg Hydrox/Simethicone 30 ml 01/10/20 09:02 01/10/20 09:29 Mylanta PO 30 ml Q6H PRN Administration Indigestion Benzocaine 1 lozenge 01/05/20 23:52 01/08/20 05:52 Chloraseptic Lozenge PO 1 lozenge PRN PRN Administration Sore Throat Bisacodyl 10 mg 01/07/20 12:54 01/09/20 09:06 Dulcolax Tab PO 10 mg DAILY PRN Administration Constipation Cyclobenzaprine HCl 5 mg 01/05/20 17:17 Flexeril PO TID PRN Muscle Spasm Dextrose 12.5 gm 01/05/20 19:00 Dextrose 50% Syringe IV PUSH PRN PRN Hypoglycemia Protocol Docusate Sodium 100 mg 01/07/20 21:00 01/10/20 10:15 Colace Capsule PO 100 mg Q12HR KRIS Administration Fenofibrate 160 mg 01/08/20 09:00 01/10/20
--- NOTE | 2020-01-10 12:09 | WPDNEURORHBP ---
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 he also complaining of the right arm shaking which I will address depending upon how he does overall otherwise no headache chest pain shortness of breath bladder or bowel dysfunction Review of Systems Review of Systems: All systems reviewed & are unremarkable except as noted in HPI and below Functional Status Ambulation Ability Ability to Ambulate 10 Feet: Contact Guard Ability to Ambulate 50 Feet With 2 Turns: Contact Guard Ability to Ambulate 150 Feet: Contact Guard Ambulation Assistive Devices: Walker, Wheeled Transfers Ability Ability to Transfer In/Out of Chair: Moderate Assistance X 1 Exam Const: General: no acute distress and uncomfortable HENMT: General nose exam: Normal nares present Mouth: Yes moist mucous membranes Eyes: General: appearance normal, both eyes and all related structures Neck: Other: the patient has [place] J collar on Resp: Effort & Inspection: normal respiratory effort Auscultation: clear to auscultation bilaterally Cardio: Rate: regular rate Rhythm: regular rhythm GI: GI Palp: Yes Soft to palpation Auscultation: normal bowel sounds Other: generalized tenderness of the abdomen Skin: General skin exam: normal color and no rashes or lesions noted Neuro: Other: patient is awake alert and well oriented time place and person is speech and language functions are normal cranial Preet Thatch normal he has generalized weakness of both upper and the lower extremities lower extremities more so than the upper extremities with bilateral foot drop but is doing well in the physical therapy and walking fairly well of course with the assistance Extrem: General: normal to inspection Psych: Mental Status: mental status grossly normal Objective Data Vital Signs Vital Signs: Vital Signs - 24 hr 01/09/20 13:30 01/09/20 14:00 01/09/20 21:25 Temperature 36.2 C L Pulse Rate 92 92 Respiratory Rate 18 18 Blood Pressure 99/48 L 107/54 L Pulse Oximetry 100 100 01/09/20 22:00 01/10/20 06:00 01/10/20 10:10 Temperature 36.4 C L 36.4 C 36.3 C L Pulse Rate 100 96 96 Respiratory Rate 20 20 18 Blood Pressure 94/60 L 112/69 129/67 Pulse Oximetry 100 97 100 Intake/Output Intake/Output: Intake & Output 01/07/20 01/08/20 01/09/20 01/10/20 23:59 23:59 23:59 23:59 Intake Total 220 720 720 240 Balance 220 720 720 240 Meds/Results Medications: Active Medications Generic Name Dose Route Start Last Admin Trade Name Freq PRN Reason Stop Dose Admin Al Hydrox/Mg Hydrox/Simethicone 30 ml 01/10/20 09:02 01/10/20 09:29 Mylanta PO 30 ml Q6H PRN Administration Indigestion Benzocaine 1 lozenge 01/05/20 23:52 01/08/20 05:52 Chloraseptic Lozenge PO 1 lozenge PRN PRN Administration Sore Throat Bisacodyl 10 mg 01/07/20 12:54 01/09/20 09:06 Dulcolax Tab PO 10 mg DAILY PRN Administration Constipation Cyclobenzaprine HCl 5 mg 01/05/20 17:17 Flexeril PO TID PRN Muscle Spasm Dextrose 12.5 gm 01/05/20 19:00 Dextrose 50% Syringe IV PUSH PRN PRN Hypoglycemia Protocol Docusate Sodium 100 mg 01/07/20 21:00 01/10/20 10:15 Colace Capsule PO 100 mg Q12HR KRIS Administration Fenofibrate 160 mg 01/08/20 09:00 01/10/20 10:16 Fenofibrate PO 160 mg DAILY KRIS Administration Gabapentin 400 mg 01/07/20 21:00 01/10/20 10:16 Neurontin PO 400 mg Q12HR KRIS Administration Glucagon 1 mg 01/05/20 19:00 Glucagon For Inj IM PRN PRN Hypoglycemia Protocol Glucose 15 gm 01/05/20 19:00 Glutose 15 PO PRN PRN Hypoglycemia P
[2020-01-10 12:17] LABS: Glucose Point of Care 240 (65-105)
--- NOTE | 2020-01-10 12:32 | PCDIET ---
Nutrition Follow-Up Complete: Nutrition Diagnosis: Unintended weight gain related to undesirable food choices as evidenced by 's statement, BMI of 27.7 and weight gain of approximately 18lbs in past couple of months. Nutrition Goal: Patient will consume greater than 50% of all meals. Goal met. Patient consumed average of 77% of meals since 01/08/20. Patient c/o nausea/vomiting today but had previously been eating well. Encouraged small, frequent meals and snacks, as tolerated. Last recorded weight is 92.7 kg. Recommend obtaining new weight. Bowel Motility: Last documented bowel movement on 01/09/20. Labs Reviewed: Glu (240), BUN (26), Cr (1.5), Na (135), Hgb (11.5), Hct (34.6) Meds Noted: Colace, Fenofibrate, Novolog Additional Notes: No documented skin breakdown. Will continue to monitor with same goal. Nutrition Monitoring and Evaluation: Will follow up in 5 days.
--- NOTE | 2020-01-10 12:54 | PCOTNOTE ---
Pt participated in 30 minutes of OT tx by participating in ADLs, Bed mobility, BUE Strengthening supine. Pt refused to get out of bed or sit EOB due to pt c/o nausea, vomiting, upset stomach, and not feeling well in general. Pt declined to participate in additional therapeutic activities at this time. RN was aware of pt's status and stated they would be getting a CT scan of abdominal region soon. Pt did not receive full minutes on this date. Will continue per POC frequency and duration tomorrow.
[2020-01-10] MEDS: INSULIN ASPART (*BKC) 100 UNITS/ML SUB-Q (12:55)
[2020-01-10 14:00] VITALS: BP 108/59; PULSE 96; RESP 18; TEMP 36.8; O2SAT 100
--- NOTE | 2020-01-10 15:34 | PCPTNOTE ---
Attempted a third time to see patient for PT and patient completed 40 minutes. Therapy limited this date due to patient not feeling well and refusing to get out of bed. Patient completed a total of 40 minutes of PT this date. Will attempt to complete full PT minutes tomorrow as appropriate.
--- NOTE | 2020-01-10 16:19 | WPDGICN ---
Assessment and Plan Assessment and plan (1) Nausea & vomiting: Code(s): R11.2 - Nausea with vomiting, unspecified Status: Acute Assessment and Plan: Nausea and vomiting may be related to constipation. He does have a history of large amount of fluid emesis at [facility] prior to transfer dark material suggest he may have had gastritis at that time. Plan is to keep patient on laxatives and brief trial of H2 blockers for the possibility of gastritis. (2) Constipation: Code(s): K59.00 - Constipation, unspecified Status: Acute Assessment and Plan: Patient recently constipated. This likely contributes to his episode of nausea vomiting last evening. Plan is to continue stool softeners and laxatives as needed. (3) T1 vertebral fracture: Code(s): S22.019A - Unspecified fracture of first thoracic vertebra, initial encounter for closed fracture Status: Acute (4) Bilateral foot-drop: Code(s): M21.371 - Foot drop, right foot; M21.372 - Foot drop, left foot Status: Acute (5) Chronic pancreatitis: Code(s): K86.1 - Other chronic pancreatitis Status: Acute Assessment and Plan: CT scan of the abdomen last evening reveals pancreatic calcifications. This suggest chronic pancreatitis. The etiology is somewhat unclear. He denies any significant alcohol intake that would contribute to this. Typical symptoms of chronic pancreatitis could include abdominal pain but different than his current pain. Also could cause pancreatic insufficiency and diarrhea. Currently does not report these problems. Pancreatic enzymes could be attempted if the symptoms were to develop. GI Consult Note Consult date/time: 01/10/20 16:19 HPI: Turner Veliz is a 79 year old male seen in evaluation at the request of Dr. Wolf because of chronic pancreatitis. Patient gives a history of a fall on December 28. He injured his neck and had a compression fracture. He subsequently was treated at [facility]. Prior to discharge 1 week ago he had some nausea vomiting required an NG tube for several days dark black fluid was withdrawn from his stomach described as a large amount. This was discontinued Tuesday 6 days ago. Since then he is eating regular food. He developed constipation in several days ago was seen by the hospitalist service in improved after laxatives were given. Last evening he had abdominal pain associated with some nausea. A CT scan of the abdomen was performed which revealed pancreatic calcifications consistent with chronic pancreatitis. Patient denies any significant alcohol intake in his life. He has had no prior history of pancreatitis. His recent abdominal pain has abated. He denies any fevers. Past medical history is also significant for bladder and prostate cancer. He has been treated for diabetes. As stated recent L5 compression fracture. Review of Systems Review of Systems: All systems reviewed & are unremarkable except as noted in HPI and below Constitutional: Constitutional: Reports no additional constitutional complaints PMFSH Past Medical History Medical History Bilateral foot-drop Bladder cancer Cervical myelopathy Diabetes Diabetic peripheral neuropathy Hyperlipidemia Hypertension Osteoarthritis Peripheral neuropathy Prostate cancer Spinal stenosis Surgical History Surgical History H/O knee surgery multiple H/O spinal fusion cervical Family History Family History (Updated 01/09/20 @ 16:01 by Shabnam Bateman RN) Father No problems noted. Sibling No problems noted. Social History Social History Smoking status: Former smoker Smoking end date: 10/31/71 Alcohol intake: never Substance use: never Substance use type: does not use Gender identity (if verbalized b
[2020-01-10 17:01] LABS: Glucose Point of Care 187 (65-105)
[2020-01-10] MEDS: FAMOTIDINE 20 MG TABLET PO (21:16)
[2020-01-10] MEDS: TRIAMCINOLONE ACET 0.1% CREAM 15 GM TUBE 1 APPLIC TOPICAL (21:17)
[2020-01-10 22:00] VITALS: BP 129/52; PULSE 95; RESP 18; TEMP 36.3; O2SAT 100
[2020-01-10 22:17] LABS: Glucose Point of Care 219 (65-105)
[2020-01-10] MEDS: BENZOCAINE/MENTHOL (*BKC) 18 EA LOZENGE 1 LOZENGE PO (22:41)
[2020-01-11 06:00] VITALS: BP 115/60; PULSE 80; RESP 18; TEMP 36.3; O2SAT 97
[2020-01-11] MEDS: LEVOTHYROXINE SODIUM 112 MCG TABLET PO (06:18)
[2020-01-11 06:22] LABS: Glucose Point of Care 203 (65-105)
--- NOTE | 2020-01-11 07:47 | PCPTNOTE ---
GAVIOTA BRADY completed an inpatient rehab wheelchair evaluation on Turner Brown [place] [employer] on 01/11/2020. The patient is unable to safely and independently ambulate household distances due to their current impairments. Their diagnosis is T1 and L5 fxs and their impairments include decreased strength, decreased endurance, decreased range of motion, decreased balance, lower extremity weakness, and ataxia. [f pt name]'s weight bearing status is weight-bearing as tolerated on the bilateral lower legs. The patient demonstrates significant functional mobility limitations that impair their ability to participate in mobility-related activities of daily living (MRADLs), including toileting, feeding, dressing, grooming, and bathing in the customary locations in the home. These limitations cannot be sufficiently resolved by the use of an appropriately fitted cane or walker. It is recommended that the patient utilize a wheelchair for functional mobility within the home in order to facilitate optimal safety, independence and participation in all MRADL's and adequately access their home environment on a regular basis. The patient's home provides adequate access between rooms, maneuvering space, and surfaces to accommodate the recommended wheelchair. The use of a wheelchair for functional mobility is strongly recommended and the patient is receptive to using the wheelchair. The use of this wheelchair will significantly improve the patient's ability to participate in MRADLS and the patient will use it on a regular basis in the home. This will facilitate optimal safety, independence, and participation. The patient has demonstrated sufficient physical and mental capabilities needed to safely propel a manual wheelchair that is provided in the home during a typical day. Recommended Wheelchair Frame: 18 by 18 Recommended Wheelchair Cushion:standard wheelchair Wheelchair Leg Recommendations: elevating removable leg rests Elevating legrests are recommended because the patient has a musculoskeletal condition or the presence of a cast or brace which prevents 90 degree flexion at the knee. Elevating legrests are recommended because the patient has significant edema of the lower extremities that requires an elevating legrest. Elevating legrests are recommended is recommended because the patient's wheelchair is also recommended to have a reclining back. Evaluating Therapist Date I agree with and certify that the above recommendation is medically necessary. Referring Physician Date I agree with and certify that the above recommendation is medically necessary. Referring Physician Date
--- NOTE | 2020-01-11 07:53 | PCPTNOTE ---
Turner Maguireey was evaluated for a wheeled walker on 01/11/2020 by this physical therapist. The wheeled walker will resolve patient's mobility limitations and will be used for ADL's within the home. The patient can safely use the wheeled walker. ?The wheeled walker will resolve the patient?s mobility deficits, including decrease LE strength, standing balance, and limited endurance.
--- NOTE | 2020-01-11 08:28 | WPDNEURORHBP ---
Subjective Date/time seen: 01/11/20 08:28 Interval history: this 79-year-old gentleman is here after having had T1 vertebral fracture and has evidence of cervicothoracic myelopathy with underlying significant peripheral neuropathy with bilateral foot drop also I multiple medical issues most recently abdominal pain nausea and vomiting from which he has really improved and he looks much better and much more comfortable than yesterday however the CT of the abdomen and the x-rays revealed chronic pancreatitis and also evidence of chronic diverticulitis for which I have requested our GI expert Dr. mercado to see him who has already seen him and the notes will be reviewed. The patient denies any further abdominal pain nausea and vomiting and feeling really great apart from the fact he has generalized weakness with due to multiple factors involving the myelopathy and also peripheral neuropathy he is wearing the cervical collar [place] J and doing fairly well no chest pain no shortness of breath no fever no chills no sore throat Review of Systems Review of Systems: All systems reviewed & are unremarkable except as noted in HPI and below Functional Status Ambulation Ability Ability to Ambulate 10 Feet: Contact Guard Ability to Ambulate 50 Feet With 2 Turns: Contact Guard Ability to Ambulate 150 Feet: Contact Guard Ambulation Assistive Devices: Walker, Wheeled Transfers Ability Ability to Transfer In/Out of Chair: Moderate Assistance X 1 Exam Const: General: comfortable and no acute distress HENMT: General nose exam: Normal nares present Mouth: Yes moist mucous membranes Eyes: General: appearance normal, both eyes and all related structures Neck: Neck: supple and no JVD Resp: Effort & Inspection: normal respiratory effort Auscultation: clear to auscultation bilaterally Cardio: Rate: regular rate Rhythm: regular rhythm GI: GI Palp: Yes Soft to palpation Auscultation: normal bowel sounds Skin: General skin exam: normal color and no rashes or lesions noted Neuro: Other: patient's mental status is normal cranial examination is normal neck movements are limited due to [place] J collar the strength in the upper upper extremities about 4/5 lower extremities of 4- over 5 with depressed reflexes due to peripheral neuropathy bilateral footdrop and needing assistance in almost all the activities of daily living except feeding himself which he is able to do it fairly good he still has a days balance and needs assistance to prevent fall Extrem: Other: evidence of generalized peripheral neuropathy including the lower extremities more so than the upper extremities with depressed reflexes Psych: Mental Status: mental status grossly normal Objective Data Vital Signs Vital Signs: Vital Signs - 24 hr 01/10/20 10:10 01/10/20 14:00 01/10/20 22:00 Temperature 36.3 C L 36.8 C 36.3 C L Pulse Rate 96 96 95 Respiratory Rate 18 18 18 Blood Pressure 129/67 108/59 L 129/52 L Pulse Oximetry 100 100 100 01/11/20 06:00 Temperature 36.3 C L Pulse Rate 80 Respiratory Rate 18 Blood Pressure 115/60 Pulse Oximetry 97 Intake/Output Intake/Output: Intake & Output 01/08/20 01/09/20 01/10/20 01/11/20 23:59 23:59 23:59 23:59 Intake Total 720 720 720 Balance 720 720 720 Meds/Results Medications: Active Medications Generic Name Dose Route Start Last Admin Trade Name Freq PRN Reason Stop Dose Admin Al Hydrox/Mg Hydrox/Simethicone 30 ml 01/10/20 09:02 01/10/20 09:29 Mylanta PO 30 ml Q6H PRN Administration Indigestion Benzocaine 1 lozenge 01/05/20 23:52 01/10/20 22:41 Chloraseptic Lozenge PO 1 lozenge PRN PRN Administration Sore Throat Bisacodyl 10 mg 01/07/20 12:54 01/09/20 09:06 Dulcolax Tab PO 10 mg DAILY PRN Administration Constipation Cyclobenzaprine HCl 5 mg 01/05/20 17:17 Flexeril PO TID PRN Muscle Spasm Dextrose 12.5 gm 01/05/20 19:00 Dextrose 50% Syringe IV PUSH
[2020-01-11] MEDS: TRIAMCINOLONE ACET 0.1% CREAM 15 GM TUBE 1 APPLIC TOPICAL ×2 (10:01→21:00)
[2020-01-11] MEDS: INSULIN ASPART (*BKC) 100 UNITS/ML SUB-Q ×2 (10:02→12:41)
[2020-01-11] MEDS: IRBESARTAN 150 MG TABLET PO (10:02)
[2020-01-11] MEDS: DOCUSATE SODIUM 100 MG CAPSULE PO ×2 (10:04→20:20)
[2020-01-11] MEDS: GABAPENTIN 400 MG CAPSULE PO ×2 (10:04→20:20)
[2020-01-11] MEDS: polyethylene glycoL 3350 17 GM POWD.PACK PO (10:05)
[2020-01-11] MEDS: FAMOTIDINE 20 MG TABLET PO ×2 (10:05→20:20)
[2020-01-11] MEDS: FENOFIBRATE 160 MG TABLET PO (10:05)
--- NOTE | 2020-01-11 11:40 | WPDGIPROGNO ---
Progress Note: A&P Additional Plan Patient alert and comfortable this morning. Tolerated regular diet. Denies abdominal pain. Physical exam reveals him to be alert. Vital signs stable. Comfortable at rest. Impression 1. Abdominal pain may be related to alteration in bowel habits. Plan to continue MiraLax daily for a time. if symptoms persist we will consider EGD to assess more thoroughly. Subjective Date/time seen: 01/11/20 11:40 Objective Data Vital Signs Vital Signs: Vital Signs - 24 hr 01/10/20 14:00 01/10/20 22:00 01/11/20 06:00 Temperature 36.8 C 36.3 C L 36.3 C L Pulse Rate 96 95 80 Respiratory Rate 18 18 18 Blood Pressure 108/59 L 129/52 L 115/60 Pulse Oximetry 100 100 97 Intake/Output Intake/Output: Intake & Output 01/08/20 01/09/20 01/10/20 01/11/20 23:59 23:59 23:59 23:59 Intake Total 720 720 720 480 Balance 720 720 720 480 Meds/Results Medications: Active Medications Generic Name Dose Route Start Last Admin Trade Name Freq PRN Reason Stop Dose Admin Al Hydrox/Mg Hydrox/Simethicone 30 ml 01/10/20 09:02 01/10/20 09:29 Mylanta PO 30 ml Q6H PRN Administration Indigestion Benzocaine 1 lozenge 01/05/20 23:52 01/10/20 22:41 Chloraseptic Lozenge PO 1 lozenge PRN PRN Administration Sore Throat Bisacodyl 10 mg 01/07/20 12:54 01/09/20 09:06 Dulcolax Tab PO 10 mg DAILY PRN Administration Constipation Cyclobenzaprine HCl 5 mg 01/05/20 17:17 Flexeril PO TID PRN Muscle Spasm Dextrose 12.5 gm 01/05/20 19:00 Dextrose 50% Syringe IV PUSH PRN PRN Hypoglycemia Protocol Docusate Sodium 100 mg 01/07/20 21:00 01/11/20 10:04 Colace Capsule PO 100 mg Q12HR KRIS Administration Famotidine 20 mg 01/10/20 21:00 01/11/20 10:05 Pepcid PO 20 mg Q12HR KRIS Administration Fenofibrate 160 mg 01/08/20 09:00 01/11/20 10:05 Fenofibrate PO 160 mg DAILY KRIS Administration Gabapentin 400 mg 01/07/20 21:00 01/11/20 10:04 Neurontin PO 400 mg Q12HR KRIS Administration Glucagon 1 mg 01/05/20 19:00 Glucagon For Inj IM PRN PRN Hypoglycemia Protocol Glucose 15 gm 01/05/20 19:00 Glutose 15 PO PRN PRN Hypoglycemia Protocol Dextrose 1,000 mls @ 100 mls/hr 01/05/20 19:00 Dextrose 5% 1,000 Ml IVPB PRN PRN Hypoglycemia Protocol Insulin Aspart 2 - 5 units 01/06/20 08:00 01/11/20 10:02 Novolog SUB-Q 2 units TIDWM KRIS Administration Protocol Irbesartan 150 mg 01/06/20 09:00 01/11/20 10:02 Avapro PO 150 mg DAILY KRIS Administration Levothyroxine Sodium 112 mcg 01/08/20 06:30 01/11/20 06:18 Synthroid PO 112 mcg DAILY@0630 KRIS Administration Menthol/Methyl Salicylate 1 applic 01/06/20 20:37 [place] Pain Relieving Cream TOPICAL BID PRN Muscle/Joint Pain Ondansetron HCl 4 mg 01/10/20 09:01 01/10/20 09:29 Zofran Odt PO 4 mg Q6H PRN Administration Nausea And Vomiting Polyethylene Glycol 17 gm 01/11/20 09:00 01/11/20 10:05 Miralax PO 17 gm QAM KRIS Administration Sodium Chloride 1 spray 01/05/20 23:55 01/06/20 01:24 [place] Nasal [place] NASAL 1 spray Q6HR PRN Administration Congestion Triamcinolone Acetonide 1 applic 01/05/20 21:00 01/11/20 10:01 Kenalog 0.1% Cream TOPICAL 1 applic Q12HR KRIS Administration Radiology Results: ITS Impressions Abdomen X-Ray 01/07/20 11:02 IMPRESSION: 1. No acute abdominal abnormality. Abdomen/Pelvis CT 01/10/20 12:03 IMPRESSION: 1. No acute intra-abdominal findings. 2. Bibasilar airspace disease, appearance most consistent with atelectasis. Superimposed infection not excludable. 3. Colonic diverticulosis. 4. Chronic pancreatitis. Labs Labs: Laboratory Results - last 24 hr 01/10/20 01/10/20 01/10/20 12:15 16:47 21:52 POC Capillary Glucose 240 H 187 H 219 H
[2020-01-11 11:45] LABS: Glucose Point of Care 246 (65-105)
[2020-01-11 14:00] VITALS: BP 94/48; PULSE 98; RESP 20; TEMP 36.4; O2SAT 96
[2020-01-11 15:10] LABS: Glucose Point of Care 59 (65-105)
[2020-01-11 15:10] LABS: Glucose Point of Care 56 (65-105)
[2020-01-11 16:05] LABS: Glucose Point of Care 97 (65-105)
[2020-01-11 17:01] LABS: Glucose Point of Care 85 (65-105)
[2020-01-11 21:13] LABS: Glucose Point of Care 101 (65-105)
[2020-01-11 21:29] VITALS: BP 107/51; PULSE 100; RESP 16; TEMP 36.2; O2SAT 100
[2020-01-12 06:00] VITALS: BP 139/61; PULSE 94; RESP 20; TEMP 36.3; O2SAT 99
[2020-01-12] MEDS: LEVOTHYROXINE SODIUM 112 MCG TABLET PO (06:05)
[2020-01-12] MEDS: BISACODYL 5 MG TABLET EC 10 MG PO (06:18)
[2020-01-12 06:31] LABS: Glucose Point of Care 113 (65-105)
[2020-01-12 08:00] VITALS: PULSE 94; RESP 20; O2SAT 99
[2020-01-12] MEDS: DOCUSATE SODIUM 100 MG CAPSULE PO ×2 (09:09→20:26)
[2020-01-12] MEDS: FENOFIBRATE 160 MG TABLET PO (09:09)
[2020-01-12] MEDS: GABAPENTIN 400 MG CAPSULE PO ×2 (09:10→20:26)
[2020-01-12] MEDS: IRBESARTAN 150 MG TABLET PO (09:10)
[2020-01-12] MEDS: FAMOTIDINE 20 MG TABLET PO ×2 (09:11→20:26)
[2020-01-12] MEDS: polyethylene glycoL 3350 17 GM POWD.PACK PO (09:16)
[2020-01-12] MEDS: TRIAMCINOLONE ACET 0.1% CREAM 15 GM TUBE 1 APPLIC TOPICAL ×2 (09:16→20:26)
[2020-01-12 12:43] LABS: Glucose Point of Care 182 (65-105)
--- NOTE | 2020-01-12 12:50 | WPDNEURORHBP ---
Subjective Date/time seen: 01/12/20 12:50 Review of Systems Review of Systems: Narrative: stable with c/o all the existent conditions though generally stable Functional Status Ambulation Ability Ability to Ambulate 10 Feet: Minimum Assistance X 1 Ability to Ambulate 50 Feet With 2 Turns: Minimum Assistance X 1 Ability to Ambulate 150 Feet: Minimum Assistance X 1 Ambulation Assistive Devices: Walker, Wheeled Transfers Ability Ability to Transfer In/Out of Chair: Minimum Assistance X 1 Exam Const: General: cooperative, comfortable and no acute distress Nutritional Appearance: well nourished Orientation/consciousness: patient oriented x3 HENMT: Head: normocephalic Ears: hearing grossly normal bilaterally General nose exam: Normal external nose present Face and sinus: normal facial exam Mouth: Yes Normal oral and palatal mucosa present Eyes: General: appearance normal, both eyes and all related structures Alignment and Position: alignment normal Periorbital: periorbital findings normal Conjunctivae: conjunctivae normal Cornea: corneas normal Pupils: Equal, round and reactive pupils present EOM: EOMs intact bilaterally Neck: Neck: other (cervical collar) Carotids: normal carotid upstroke Lymphatic: no lymphadenopathy noted Resp: Effort & Inspection: normal respiratory effort and able to speak in complete sentences Auscultation: clear to auscultation bilaterally Cardio: Rate: regular rate GI: Auscultation: normal bowel sounds Skin: General skin exam: no rashes or lesions noted Neuro: General: patient oriented x3, gait normal (abnormal) and no focal motor deficits (bilateral foot drop) Cranial nerves: Yes CN's II-XII intact bilaterally, Yes Equal, round and reactive pupils present, Yes Nystagmus not present, Yes Normal facial strength present, Yes Midline tongue present and Yes Symmetric palate elevation present Cognition (Neuro): normal cognition Speech: normal speech Gait exam (Neuro): Unable to assess gait Motor exam (neuro): 5/5 motor strength present throughout (UE 4/5,LE 4/5) Sensory Exam: Sensory deficit (Neuro) (lower extremities) Deep tendon reflexes (DTR's): Right triceps reflex intensity grade: 0, Left triceps reflex intensity grade: 0, Rt Biceps (C5, C6): 0, Left biceps reflex intensity grade: 0, Right brachioradialis reflex intensity grade: 0, Left brachioradialis reflex intensity grade: 0, Right patellar reflex intensity grade: 0, Left patellar reflex intensity grade: 0, Right ankle reflex intensity grade: 0 and Left ankle reflex intensity grade: 0 Psych: Mental Status: mental status grossly normal Affect: normal affect Attitude: cooperative Thought process: Normal thought process present Thought content: Yes Normal thought content present Insight: Good insight present (Psych) Judgement: Good judgement present (Psych) Objective Data Vital Signs Vital Signs: Vital Signs - 24 hr 01/11/20 14:00 01/11/20 21:29 01/12/20 06:00 Temperature 36.4 C L 36.2 C L 36.3 C L Pulse Rate 98 100 94 Respiratory Rate 20 16 20 Blood Pressure 94/48 L 107/51 L 139/61 Pulse Oximetry 96 100 99 01/12/20 08:00 Temperature Pulse Rate 94 Respiratory Rate 20 Blood Pressure Pulse Oximetry 99 Intake/Output Intake/Output: Intake & Output 01/09/20 01/10/20 01/11/20 01/12/20 23:59 23:59 23:59 23:59 Intake Total 152 283 4724 120 Balance 343 185 2946 120 Meds/Results Medications: Active Medications Generic Name Dose Route Start Last Admin Trade Name Freq PRN Reason Stop Dose Admin Al Hydrox/Mg Hydrox/Simethicone 30 ml 01/10/20 09:02 01/10/20 09:29 Mylanta PO 30 ml Q6H PRN Administration Indigestion Benzocaine 1 lozenge 01/05/20 23:52 01/10/20 22:41 Chloraseptic Lozenge PO 1 lozenge PRN PRN Administration Sore Throat Bisacodyl 10 mg 01/07/20 12:54 01/12/20 06:18 Dulcolax Tab PO 10 mg DAILY PRN Administration Constipation Cyclobenzaprine HCl 5 mg
[2020-01-12 14:00] VITALS: BP 98/60; PULSE 96; RESP 18; TEMP 36.2; O2SAT 100
[2020-01-12 17:08] LABS: Glucose Point of Care 221 (65-105)
--- NOTE | 2020-01-12 18:13 | PC.NURSE ---
patient refusing sliding scale insulin now at dinner time states it wont help . patient upset because his humalog pen is on hold. call placed to dr. mclean regarding humalog pen. waiting for return call.
[2020-01-12 20:32] LABS: Glucose Point of Care 233 (65-105)
[2020-01-12 22:00] VITALS: BP 102/57; PULSE 97; RESP 18; TEMP 36.6; O2SAT 99
[2020-01-13 00:12] LABS: Glucose Point of Care 152 (65-105)
[2020-01-13 05:47] LABS: Glucose Point of Care 157 (65-105)
[2020-01-13] MEDS: LEVOTHYROXINE SODIUM 112 MCG TABLET PO (05:52)
[2020-01-13 06:00] VITALS: BP 110/66; PULSE 82; RESP 20; TEMP 36.7; O2SAT 98
[2020-01-13 08:00] VITALS: PULSE 82; RESP 20; O2SAT 98
[2020-01-13] MEDS: GABAPENTIN 400 MG CAPSULE PO ×2 (09:53→21:31)
[2020-01-13] MEDS: DOCUSATE SODIUM 100 MG CAPSULE PO ×2 (09:54→21:29)
[2020-01-13] MEDS: FAMOTIDINE 20 MG TABLET PO ×2 (09:54→21:30)
[2020-01-13] MEDS: FENOFIBRATE 160 MG TABLET PO (09:54)
[2020-01-13] MEDS: polyethylene glycoL 3350 17 GM POWD.PACK PO (09:55)
[2020-01-13] MEDS: TRIAMCINOLONE ACET 0.1% CREAM 15 GM TUBE 1 APPLIC TOPICAL ×2 (09:55→21:31)
[2020-01-13] MEDS: IRBESARTAN 150 MG TABLET PO (09:56)
[2020-01-13 12:07] LABS: Glucose Point of Care 273 (65-105)
--- NOTE | 2020-01-13 12:55 | WPDNEURORHBP ---
Subjective Date/time seen: discussed about management of DM as he is aware of management at home and wants to continue as such01/13/20 12:55 Review of Systems Review of Systems: All systems reviewed & are unremarkable except as noted in HPI and below Functional Status Ambulation Ability Ability to Ambulate 10 Feet: Standby Assistance Ability to Ambulate 50 Feet With 2 Turns: Standby Assistance Ability to Ambulate 150 Feet: Standby Assistance Ambulation Assistive Devices: Walker, Wheeled Transfers Ability Ability to Transfer In/Out of Chair: Minimum Assistance X 1 Exam Const: General: cooperative, comfortable and no acute distress Nutritional Appearance: average body habitus Orientation/consciousness: patient oriented x3 HENMT: Head: normocephalic Ears: hearing grossly normal bilaterally General nose exam: Normal external nose present and No nasal discharge present Face and sinus: normal facial exam Mouth: Yes Normal oral and palatal mucosa present Eyes: General: appearance normal, both eyes and all related structures Visual Glasgow: normal visual glasgow by confrontation Alignment and Position: alignment normal Periorbital: periorbital findings normal Eyelids: eyelids normal Conjunctivae: conjunctivae normal Sclera: sclerae normal Cornea: corneas normal Pupils: Equal, round and reactive pupils present EOM: EOMs intact bilaterally Neck: Neck: normal visual inspection Resp: Effort & Inspection: normal respiratory effort and able to speak in complete sentences Auscultation: clear to auscultation bilaterally Cardio: Rate: regular rate Rhythm: regular rhythm GI: Auscultation: normal bowel sounds Skin: General skin exam: no rashes or lesions noted Neuro: General: patient oriented x3 Cranial nerves: Yes CN's II-XII intact bilaterally, Yes Equal, round and reactive pupils present, Yes Nystagmus not present, Yes Normal facial strength present, Yes Midline tongue present, Yes Symmetric palate elevation present and Yes Normal hearing present Cognition (Neuro): normal cognition Speech: normal speech Gait exam (Neuro): Unable to assess gait Motor exam (neuro): 5/5 motor strength present throughout (4/5 throughout) Sensory Exam: Sensory deficit (Neuro) (lower extremities) Deep tendon reflexes (DTR's): Right triceps reflex intensity grade: 0, Left triceps reflex intensity grade: 0, Rt Biceps (C5, C6): 0, Left biceps reflex intensity grade: 0, Right brachioradialis reflex intensity grade: 0, Left brachioradialis reflex intensity grade: 0, Right patellar reflex intensity grade: 0, Left patellar reflex intensity grade: 0, Right ankle reflex intensity grade: 0 and Left ankle reflex intensity grade: 0 Psych: Appearance: grossly normal Mental Status: mental status grossly normal Affect: normal affect Attitude: cooperative Thought process: Normal thought process present Thought content: Yes Normal thought content present Insight: Good insight present (Psych) Objective Data Vital Signs Vital Signs: Vital Signs - 24 hr 01/12/20 14:00 01/12/20 22:00 01/13/20 06:00 Temperature 36.2 C L 36.6 C 36.7 C Pulse Rate 96 97 82 Respiratory Rate 18 18 20 Blood Pressure 98/60 L 102/57 L 110/66 Pulse Oximetry 100 99 98 01/13/20 08:00 Temperature Pulse Rate 82 Respiratory Rate 20 Blood Pressure Pulse Oximetry 98 Intake/Output Intake/Output: Intake & Output 01/10/20 01/11/20 01/12/20 01/13/20 23:59 23:59 23:59 23:59 Intake Total 720 1080 600 240 Balance 720 1080 600 240 Meds/Results Medications: Active Medications Generic Name Dose Route Start Last Admin Trade Name Freq PRN Reason Stop Dose Admin Al Hydrox/Mg Hydrox/Simethicone 30 ml 01/10/20 09:02 01/10/20 09:29 Mylanta PO 30 ml Q6H PRN Administration Indigestion Benzocaine 1 lozenge 01/05/20 23:52 01/10/20 22:41 Chloraseptic Lozenge PO 1 lozenge PRN PRN Administration Sore Throat Bisacodyl 10 mg 01/07/20 12:54 01/12/20 06:
--- NOTE | 2020-01-13 12:57 | PC.NURSE ---
Talked with Dr. Alfaro and advised that patient may restart his humalog mix 50/50 pen and take as directed by his PCP.
[2020-01-13 15:00] VITALS: BP 93/51; PULSE 98; RESP 15; TEMP 36.4; O2SAT 100
[2020-01-13 17:01] LABS: Glucose Point of Care 152 (65-105)
[2020-01-13 21:04] LABS: Glucose Point of Care 170 (65-105)
[2020-01-13 22:00] VITALS: BP 105/51; PULSE 100; RESP 18; TEMP 36.4; O2SAT 98
[2020-01-14 05:44] LABS: Hematocrit 30.5 % (42.0-52.0); Hemoglobin 10.1 g/dL (14.0-18.0); Mean Corpuscular HGB Conc 33.1 g/dl (32-36); Mean Corpuscular Hemoglobin 29.5 pg (26-34); Mean Corpuscular Volume 89.2 fl (80-100); Mean Platelet Volume 10.3 fl (7.4-10.4); Platelet Count Result 309 k/mm3 (150-375); Red Blood Count 3.42 M/mm3 (4.6-6.20); Red Cell Distribution Width 13.8 % (11.5-14.5); White Blood Count 7.1 K/mm3 (4.5-10.0)
[2020-01-14] MEDS: LEVOTHYROXINE SODIUM 112 MCG TABLET PO (05:46)
[2020-01-14 05:51] LABS: Blood Urea Nitrogen 32 mg/dL (9-20); Calcium 8.6 mg/dL (8.4-10.2); Carbon Dioxide 26 mmol/L (22-30); Chloride 99 mmol/L (98-107); Estimated CRCL calculation 33 ml/min; Estimated Glomerular Filt Rate 36; Glucose 135 mg/dL (75-110); Potassium 4.3 mmol/L (3.4-5.0); Sodium 134 mmol/L (137-145)
[2020-01-14 06:00] VITALS: BP 109/65; PULSE 91; RESP 19; TEMP 36.6; O2SAT 98
[2020-01-14] MEDS: polyethylene glycoL 3350 17 GM POWD.PACK PO (09:09)
[2020-01-14] MEDS: TRIAMCINOLONE ACET 0.1% CREAM 15 GM TUBE 1 APPLIC TOPICAL ×2 (09:10→21:34)
[2020-01-14] MEDS: GABAPENTIN 400 MG CAPSULE PO ×2 (09:11→21:05)
[2020-01-14] MEDS: FENOFIBRATE 160 MG TABLET PO (09:11)
[2020-01-14] MEDS: IRBESARTAN 150 MG TABLET PO (09:11)
[2020-01-14] MEDS: DOCUSATE SODIUM 100 MG CAPSULE PO ×2 (09:12→21:02)
[2020-01-14] MEDS: FAMOTIDINE 20 MG TABLET PO ×2 (09:13→21:05)
--- NOTE | 2020-01-14 09:19 | WPDGIPROGNO ---
Progress Note: A&P Additional Plan patient states he is improved today. He is tolerating diet without difficulty. No nausea. His bowel habits are now more normal with MiraLax supplementation. Physical exam reveals Vital Signs to be stable. Abdomen is soft and nontender. Impression improved bowel habits appears to be related to poor mobility. Plan is to continue fiber stool softener. MiraLax on a routine basis advised to improve bowel function. At the present time no additional GI testing anticipated. Should symptoms and recur would ask that he follow up in my office at that time. Subjective Date/time seen: 01/14/20 09:19 Objective Data Vital Signs Vital Signs: Vital Signs - 24 hr 01/13/20 15:00 01/13/20 22:00 01/14/20 06:00 Temperature 36.4 C L 36.4 C L 36.6 C Pulse Rate 98 100 91 Respiratory Rate 15 18 19 Blood Pressure 93/51 L 105/51 L 109/65 Pulse Oximetry 100 98 98 Intake/Output Intake/Output: Intake & Output 01/11/20 01/12/20 01/13/20 01/14/20 23:59 23:59 23:59 23:59 Intake Total 1080 600 720 Balance 1080 600 720 Meds/Results Medications: Active Medications Generic Name Dose Route Start Last Admin Trade Name Freq PRN Reason Stop Dose Admin Al Hydrox/Mg Hydrox/Simethicone 30 ml 01/10/20 09:02 01/10/20 09:29 Mylanta PO 30 ml Q6H PRN Administration Indigestion Benzocaine 1 lozenge 01/05/20 23:52 01/10/20 22:41 Chloraseptic Lozenge PO 1 lozenge PRN PRN Administration Sore Throat Bisacodyl 10 mg 01/07/20 12:54 01/12/20 06:18 Dulcolax Tab PO 10 mg DAILY PRN Administration Constipation Cyclobenzaprine HCl 5 mg 01/05/20 17:17 Flexeril PO TID PRN Muscle Spasm Dextrose 12.5 gm 01/05/20 19:00 Dextrose 50% Syringe IV PUSH PRN PRN Hypoglycemia Protocol Docusate Sodium 100 mg 01/07/20 21:00 01/14/20 09:12 Colace Capsule PO 100 mg Q12HR KRIS Administration Famotidine 20 mg 01/10/20 21:00 01/14/20 09:13 Pepcid PO 20 mg Q12HR KRIS Administration Fenofibrate 160 mg 01/08/20 09:00 01/14/20 09:11 Fenofibrate PO 160 mg DAILY KRIS Administration Gabapentin 400 mg 01/07/20 21:00 01/14/20 09:11 Neurontin PO 400 mg Q12HR KRIS Administration Glucagon 1 mg 01/05/20 19:00 Glucagon For Inj IM PRN PRN Hypoglycemia Protocol Glucose 15 gm 01/05/20 19:00 Glutose 15 PO PRN PRN Hypoglycemia Protocol Dextrose 1,000 mls @ 100 mls/hr 01/05/20 19:00 Dextrose 5% 1,000 Ml IVPB PRN PRN Hypoglycemia Protocol Insulin Aspart 2 - 5 units 01/06/20 08:00 01/14/20 09:08 Novolog SUB-Q Not Given TIDWM [facility] Protocol Irbesartan 150 mg 01/06/20 09:00 01/14/20 09:11 Avapro PO 150 mg DAILY KRIS Administration Levothyroxine Sodium 112 mcg 01/08/20 06:30 01/14/20 05:46 Synthroid PO 112 mcg DAILY@0630 KRIS Administration Menthol/Methyl Salicylate 1 applic 01/06/20 20:37 [place] Pain Relieving Cream TOPICAL BID PRN Muscle/Joint Pain Ondansetron HCl 4 mg 01/10/20 09:01 01/10/20 09:29 Zofran Odt PO 4 mg Q6H PRN Administration Nausea And Vomiting Polyethylene Glycol 17 gm 01/11/20 09:00 01/14/20 09:09 Miralax PO 17 gm QAM KRIS Administration Sodium Chloride 1 spray 01/05/20 23:55 01/06/20 01:24 [place] Nasal [place] NASAL 1 spray Q6HR PRN Administration Congestion Triamcinolone Acetonide 1 applic 01/05/20 21:00 01/14/20 09:10 Kenalog 0.1% Cream TOPICAL 1 applic Q12HR KRIS Administration Radiology Results: ITS Impressions Abdomen X-Ray 01/07/20 11:02 IMPRESSION: 1. No acute abdominal abnormality. Abdomen/Pelvis CT 01/10/20 12:03 IMPRESSION: 1. No acute intra-abdominal findings. 2. Bibasilar airspace disease, appearance most consistent with atelectasis. Superimposed infection not excludable. 3. Colonic diverticul
[2020-01-14 11:30] VITALS: PULSE 91; RESP 19; O2SAT 98
[2020-01-14 12:07] LABS: Glucose Point of Care 139 (65-105)
[2020-01-14 14:00] VITALS: BP 82/44; PULSE 102; RESP 17; TEMP 36.2; O2SAT 99
[2020-01-14 16:54] LABS: Glucose Point of Care 153 (65-105)
[2020-01-14 17:58] VITALS: BP 107/54; PULSE 92; O2SAT 100
[2020-01-14] MEDS: CYCLOBENZAPRINE HCL 5 MG TABLET PO (21:39)
[2020-01-14 22:00] VITALS: BP 92/52; PULSE 90; RESP 16; TEMP 36.2; O2SAT 100
[2020-01-15 06:00] VITALS: BP 107/61; PULSE 96; RESP 20; TEMP 36.2; O2SAT 99
[2020-01-15] MEDS: LEVOTHYROXINE SODIUM 112 MCG TABLET PO (07:11)
[2020-01-15 07:23] LABS: Glucose Point of Care 143 (65-105)
[2020-01-15] MEDS: DOCUSATE SODIUM 100 MG CAPSULE PO ×2 (08:33→20:43)
[2020-01-15] MEDS: FENOFIBRATE 160 MG TABLET PO (08:33)
[2020-01-15] MEDS: FAMOTIDINE 20 MG TABLET PO ×2 (08:33→20:43)
[2020-01-15] MEDS: GABAPENTIN 400 MG CAPSULE PO ×2 (08:34→20:43)
[2020-01-15] MEDS: polyethylene glycoL 3350 17 GM POWD.PACK PO (08:35)
[2020-01-15] MEDS: TRIAMCINOLONE ACET 0.1% CREAM 15 GM TUBE 1 APPLIC TOPICAL ×2 (08:35→20:43)
[2020-01-15] MEDS: IRBESARTAN 150 MG TABLET PO (08:35)
--- NOTE | 2020-01-15 12:34 | PC.NURSE ---
At team meeting this morning, Dr. Wolf dc'd Avapro due to low blood pressures, but received already this morning, will continue to monitor. Blood sugar 143 per our machine and 177 with his reader so only dosed self at 40 of insulin per his pen. At lunch, blood sugar 88 on his reader and 93 with ours, holding all insulins at this time.
[2020-01-15 13:00] VITALS: BP 96/50
[2020-01-15 13:16] VITALS: BP 111/52
[2020-01-15 14:00] VITALS: BP 119/65; PULSE 101; RESP 20; TEMP 36.3; O2SAT 100
--- NOTE | 2020-01-15 14:08 | WPDNEURORHBP ---
Subjective Date/time seen: 01/15/20 14:08 Interval history: this 79-year-old of present gentleman is here on the acute rehab after sustaining a T1 endplate fracture, L5 compression fracture and central spinal cord syndrome. The patient also has underlying peripheral neuropathy with bilateral foot drop however has done remarkably well here and will be discharged tomorrow after we have discussed the case in the team conference his blood pressure runningRelatively low and Avapro has been discontinued patient also is running a little bit high creatinine which is most likely related to combination of I have upper 0 and also low blood pressure which have discussed with him and he needs to follow-up with the primary care physician to have another BMP in the coming week Patient denies any headache nausea vomiting chest pain shortness of breath fever chills or sore throat overall he has significantly improved and will be followed by the the surgeon who have initially treated him conservatively for the T1 fracture and L5 fracture and for the central cord syndrome from all of which she has improved quite a bit Review of Systems Review of Systems: All systems reviewed & are unremarkable except as noted in HPI and below Functional Status Ambulation Ability Ability to Ambulate 10 Feet: Standby Assistance Ability to Ambulate 50 Feet With 2 Turns: Standby Assistance Ability to Ambulate 150 Feet: Standby Assistance Ambulation Assistive Devices: Walker, Wheeled Transfers Ability Ability to Transfer In/Out of Chair: Minimum Assistance X 1 Exam Const: General: comfortable and no acute distress HENMT: General nose exam: Normal nares present Mouth: Yes moist mucous membranes Eyes: General: appearance normal, both eyes and all related structures Neck: Neck: supple and no JVD Resp: Effort & Inspection: normal respiratory effort Auscultation: clear to auscultation bilaterally Cardio: Rate: regular rate Rhythm: regular rhythm GI: GI Palp: Yes Soft to palpation Auscultation: normal bowel sounds Skin: General skin exam: normal color and no rashes or lesions noted Neuro: Other: patient's mental status examine arm is normal cranial examination is normal his strength in the upper extremities quite very well except the sensory deficit from the central cord syndrome and also the stent in the lower extremity has improved and is walking quite a bit with the aid of the walker he is keeping his [place] J collar on and comfortable with it overall neurological status has significantly improved Extrem: General: normal to inspection Psych: Mental Status: mental status grossly normal Objective Data Vital Signs Vital Signs: Vital Signs - 24 hr 01/14/20 17:58 01/14/20 22:00 01/15/20 06:00 Temperature 36.2 C L 36.2 C L Pulse Rate 92 90 96 Respiratory Rate 16 20 Blood Pressure 107/54 L 92/52 L 107/61 Pulse Oximetry 100 100 99 01/15/20 13:00 01/15/20 13:16 Temperature Pulse Rate Respiratory Rate Blood Pressure 96/50 L 111/52 L Pulse Oximetry Intake/Output Intake/Output: Intake & Output 01/12/20 01/13/20 01/14/20 01/15/20 23:59 23:59 23:59 23:59 Intake Total 600 720 585 860 Balance 600 720 585 860 Meds/Results Medications: Active Medications Generic Name Dose Route Start Last Admin Trade Name Freq PRN Reason Stop Dose Admin Al Hydrox/Mg Hydrox/Simethicone 30 ml 01/10/20 09:02 01/10/20 09:29 Mylanta PO 30 ml Q6H PRN Administration Indigestion Benzocaine 1 lozenge 01/05/20 23:52 01/10/20 22:41 Chloraseptic Lozenge PO 1 lozenge PRN PRN Administration Sore Throat Bisacodyl 10 mg 01/07/20 12:54 01/12/20 06:18 Dulcolax Tab PO 10 mg DAILY PRN Administration Constipation Cyclobenzaprine HCl 5 mg 01/05/20 17:17 01/14/20 21:39 Flexeril PO 5 mg TID PRN Administration Muscle Spasm Dextrose 12.5 gm 01/05/20 19:00 Dextrose 50% Syringe IV PUSH PRN PRN Hyp
[2020-01-15 15:31] LABS: Glucose Point of Care 93 (65-105)
[2020-01-15 17:05] LABS: Glucose Point of Care 148 (65-105)
[2020-01-15 20:54] LABS: Glucose Point of Care 152 (65-105)
[2020-01-15 22:00] VITALS: BP 113/60; PULSE 101; RESP 18; TEMP 36.4; O2SAT 100
[2020-01-16] MEDS: LEVOTHYROXINE SODIUM 112 MCG TABLET PO (05:48)
[2020-01-16 06:00] VITALS: BP 127/62; PULSE 87; RESP 18; TEMP 36.6; O2SAT 99
[2020-01-16 06:06] LABS: Glucose Point of Care 140 (65-105)
[2020-01-16] MEDS: FENOFIBRATE 160 MG TABLET PO (08:48)
[2020-01-16] MEDS: FAMOTIDINE 20 MG TABLET PO (08:48)
[2020-01-16] MEDS: GABAPENTIN 400 MG CAPSULE PO (08:48)
[2020-01-16] MEDS: DOCUSATE SODIUM 100 MG CAPSULE PO (08:48)
[2020-01-16] MEDS: TRIAMCINOLONE ACET 0.1% CREAM 15 GM TUBE 1 APPLIC TOPICAL (08:49)
[2020-01-16] MEDS: polyethylene glycoL 3350 17 GM POWD.PACK PO (08:49)
[2020-01-16 10:02] VITALS: PULSE 87; RESP 18; O2SAT 99
[2020-01-16 11:57] LABS: Glucose Point of Care 136 (65-105)
--- NOTE | 2020-01-22 11:55 | PM.DS ---
DS: Diagnosis Admitting Diagnosis Admitting Diagnosis: Other fracture of first thoracic vertebra, initial encounter for closed fracture Discharge Diagnosis (1) Chronic pancreatitis: Code(s): K86.1 - Other chronic pancreatitis Status: Acute (2) Prostate cancer: Code(s): C61 - Malignant neoplasm of prostate Status: Acute (3) Diabetes: Code(s): E11.9 - Type 2 diabetes mellitus without complications Status: Acute (4) Bladder cancer: Code(s): C67.9 - Malignant neoplasm of bladder, unspecified Status: Acute (5) Nausea & vomiting: Code(s): R11.2 - Nausea with vomiting, unspecified Status: Acute (6) T1 vertebral fracture: Code(s): S22.019A - Unspecified fracture of first thoracic vertebra, initial encounter for closed fracture Status: Acute (7) Constipation: Code(s): K59.00 - Constipation, unspecified Status: Acute (8) Bilateral foot-drop: Code(s): M21.371 - Foot drop, right foot; M21.372 - Foot drop, left foot Status: Acute (9) Diabetic peripheral neuropathy: Code(s): E11.42 - Type 2 diabetes mellitus with diabetic polyneuropathy Status: Acute (10) Cervical myelopathy: Code(s): G95.9 - Disease of spinal cord, unspecified Status: Acute (11) Compression fracture of L5 vertebra: Code(s): S32.050A - Wedge compression fracture of fifth lumbar vertebra, initial encounter for closed fracture Status: Acute (12) Nondisplaced fracture: Code(s): T14.8XXA - Other injury of unspecified body region, initial encounter Status: Acute DS: Summary Hospital Course Reason for hospitalization: this 79-year-old pleasant gentleman was admitted with the multiple diagnosis as mentioned above and he did quite well in over rehab program and was able to achieve the following following independent measures eating independent, oral hygiene independent, toileting set up, bathing supervision, upper body dressings partial assistance, lower body dressing partial assistance, foot where partial assistanceReferring in bed supervision, sitting to lying supervision, lying to sitting so independent, sit to stand supervision, chair transfers supervision, toilet transfer set up, car transfers supervision, walking 10 feet supervision, walking 50 feet with a 2 turns supervision, walking 150 feet supervision, walking 10 feet uneven surfaces supervision, Walsh step supervision, 4 step supervision, 12 steps patient was unable to, picking about tics supervision, wheelchair 50 feet independent, wheelchair and 50 feet independent, discharge destination home with home health no falls were recorded Time Spent with Patient Time attestation: Total time spent providing and/or coordinating discharge services: Exam Const: General: comfortable and no acute distress HENMT: General nose exam: Normal nares present Mouth: Yes dry mucous membranes Eyes: General: appearance normal, both eyes and all related structures Neck: Neck: supple and no JVD Other: wearing [place] J collar Resp: Effort & Inspection: normal respiratory effort Auscultation: clear to auscultation bilaterally Cardio: Rate: regular rate Rhythm: regular rhythm GI: GI Palp: Yes Soft to palpation Auscultation: normal bowel sounds Skin: General skin exam: normal color and no rashes or lesions noted Neuro: Other: patient is awake alert evaluated time placed person is speech and language functions normal cranial exam bonner normal upper extremity strength is 4.5/5 lower extremity strength is 4- over 5 with depressed reflexes bilateral foot drop which are long-standing 5th AFOs bilaterally overall significant improvement in his neurological status Extrem: Other: bilateral foot drop for long time Psych: Mental Status: mental status grossly normal DS: Data Data Completed and Pending Completed studies during hospitalization: on January 13 the patient had a white count
== END 2020-01-16 13:39 | disposition home health service (06) | DRG 560 ==
PROVIDERS: Internal Medicine; Psychiatry & Neurology Neurology; Admitting Provider Psychiatry & Neurology Neurology; Visit Provider Psychiatry & Neurology Neurology
DX: S22.018D Other fracture of first thoracic vertebra, subsequent encounter for fracture with routine healing (principal); G95.9 Disease of spinal cord, unspecified; K86.1 Other chronic pancreatitis; S32.050D Wedge compression fracture of fifth lumbar vertebra, subsequent encounter for fracture with routine healing; S14.129D Central cord syndrome at unspecified level of cervical spinal cord, subsequent encounter; R25.9 Unspecified abnormal involuntary movements; E11.42 Type 2 diabetes mellitus with diabetic polyneuropathy; E78.5 Hyperlipidemia, unspecified; I10 Essential (primary) hypertension; K57.30 Diverticulosis of large intestine without perforation or abscess without bleeding; K59.00 Constipation, unspecified; M21.371 Foot drop, right foot; M21.372 Foot drop, left foot; R11.2 Nausea with vomiting, unspecified; Z98.1 Arthrodesis status; Z79.4 Long term (current) use of insulin; Z85.46 Personal history of malignant neoplasm of prostate; Z85.51 Personal history of malignant neoplasm of bladder; Z85.828 Personal history of other malignant neoplasm of skin; Z96.652 Presence of left artificial knee joint; Z87.891 Personal history of nicotine dependence; W19.XXXD Unspecified fall, subsequent encounter
CPT/HCPCS: 36415; 74018; 74019; 74176; 80048; 80053; 83036; 85025; 85027; 97110; 97116; 97161; 97167; 97530; 97535; 97542; A9270; J1815; J2405

== ENCOUNTER 2020-02-08 11:10 | Outpatient (RCR) | payer MEDICARE, SELFPAY ==
[2020-02-01 12:30] LABS: Blood Urea Nitrogen 29 mg/dL (9-20); Calcium 9.4 mg/dL (8.4-10.2); Carbon Dioxide 26 mmol/L (22-30); Chloride 100 mmol/L (98-107); Estimated Glomerular Filt Rate 49; Glucose 228 mg/dL (75-110); Potassium 4.1 mmol/L (3.4-5.0); Sodium 135 mmol/L (137-145)
[2020-02-08 11:23] LABS: Blood Urea Nitrogen 28 mg/dL (9-20); Calcium 9.1 mg/dL (8.4-10.2); Carbon Dioxide 27 mmol/L (22-30); Chloride 102 mmol/L (98-107); Estimated Glomerular Filt Rate 58; Glucose 102 mg/dL (75-110); Potassium 4.2 mmol/L (3.4-5.0); Sodium 136 mmol/L (137-145)
== END 2020-05-01 23:59 | disposition home or self-care (01) ==
LOC: HOME HLTH 11:10
PROVIDERS: Visit Provider Internal Medicine Endocrinology, Diabetes & Metabolism
DX: S22.018D Other fracture of first thoracic vertebra, subsequent encounter for fracture with routine healing (principal); S14.129D Central cord syndrome at unspecified level of cervical spinal cord, subsequent encounter; S32.050D Wedge compression fracture of fifth lumbar vertebra, subsequent encounter for fracture with routine healing; I10 Essential (primary) hypertension
CPT/HCPCS: 80048

== ENCOUNTER 2020-03-12 14:40 | Outpatient (CLI) | payer MEDICARE, SELFPAY ==
--- NOTE | ~2020-03-12 | XR_ITS ---
EXAMINATION: [id number]_[id number] EXAM DATE: 03/12/2020 15:13 INDICATION: Cervical fusion. Cervicalgia. TECHNIQUE: Cervical spine frontal, lateral, lateral swimmers, and open-mouth odontoid projections. There is no prior study for comparison. FINDINGS: Cervical fusion C3-7. There is moderate disc disease at C4-5, 5 6, 6 7. Mid cervical jefferson ectomies as well. Facet joints may may have osseous fusion. No endplate erosive change. The odontoid process is intact. The lateral masses of C1 line up with C2. Prevertebral soft tissue and pre-dens s pace are within normal limits. IMPRESSION: Intact cervical fusion C3-7. Laminectomies. Moderate disc disease. Reviewed, dictated and finalized at location A.
== END 2020-03-12 14:41 | disposition home or self-care (01) ==
PROVIDERS: PCP Internal Medicine Endocrinology, Diabetes & Metabolism
DX: M48.02 Spinal stenosis, cervical region (principal); Z98.1 Arthrodesis status; M50.80 Other cervical disc disorders, unspecified cervical region
CPT/HCPCS: 72040

== ENCOUNTER 2022-03-30 11:36 | Inpatient (IN) | payer MEDICARE, SELFPAY ==
[2022-03-30] VITALS (20 sets, daily range): BP systolic 114–145; BP diastolic 56–94; PULSE 98–114; RESP 20–40; TEMP 36.8–37.7; O2SAT 78–99
--- NOTE | ~2022-03-30 | XR_ITS ---
XR chest 1V portable 04/01/2022 09:06 Indication: Shortness of breath Procedure: AP portable chest Comparison: Comparison to multiple prior studies sequentially, with oldest reviewed study dated 01/17. Findings: Cardiomegaly with interstitial edema. Small pleural effusions, left greater than right. No pneumothorax. No acute osseous abnormality. Impression: 1: Cardiomegaly with interstitial edema. 2: Small pleural effusions. Reviewed, dictated and finalized at location A. Impression: 1: Cardiomegaly with interstitial edema. 2: Small pleural effusions.
--- NOTE | ~2022-03-30 | CT_ITS ---
EXAMINATION: CT abdomen pelvis wo con DATE: 04/03/2022 12:36 INDICATION: abdominal pain TECHNIQUE: Computed tomography (CT) of the abdomen and pelvis was performed without intravenous contr ast. Automated exposure control and iterative reconstruction technique were employed. The dose-length product was 934.99 mGy-cm. COMPARISON: 03/31/2022 FINDINGS: Lower thorax: Severe coronary artery calcification. Moderate bilateral pleural effusions, slightly in creased. Bilateral consolidation and volume loss. Bilateral gynecomastia. Liver: Normal. Biliary/Gallbladder: Gallbladder is normal. No bile duct dilation. Pancreas: No mass or duct dilation. Spleen: Normal. Adrenals:No mass. Kidneys: Right lower pole cyst, no other mass, stone, or hydronephrosis. GI tract: No small or large bowel dilation. Normal appendix. Diverticulosis without diverticulitis. Mesentery/Peritoneum: Trace free fluid in the deep pelvis, mass, or free air. Retroperitoneum: No mass. Extensive atherosclerotic ossifications. Pelvis: Pelvic organs are within normal limits. Prostatectomy and lymph node dissection. Soft Tissues: Soft tissues and body wall unremarkable. Bones: No acute osseous finding. IMPRESSION: Bilateral moderate pleural effusions, slightly increased from the prior. Likely bibasilar atelectasis , infection not excluded. No acute abdominopelvic process. Reviewed, dictated and finalized at location K. IMPRESSION: Bilateral moderate pleural effusions, slightly increased from the prior. Likely bibasilar atelectasis, infection not excluded. No acute abdominopelvic process .
--- NOTE | ~2022-03-30 | XR_ITS ---
XR chest 2V 03/30/2022 12:42 Indication: Shortness of breath, cough and hypertension Procedure: AP and lateral views of the chest Comparison: 01/17/2019 Findings: There is bilateral airspace disease with small pleural effusions. There is a masslike densi ty overlying the right first rib. No pneumothorax. No acute osseous abnormality. Impression: 1: Bilateral airspace disease which may represent edema or pneumonia. 2: Bilateral pleural effusions. 3: Masslike density right upper thorax. Correlation with CT recommended to exclude parenchymal mass. Reviewed, dictated and finalized at location A. Impression: 1: Bilateral airspace disease which may represent edema or pneumonia. 2: Bilateral pleural effusions. 3: Masslike density right upper thorax. Correlation with CT recommended to excl ude parenchymal mass.
--- NOTE | ~2022-03-30 | CT_ITS ---
EXAMINATION: CT diagnostic chest wo con DATE: 03/30/2022 17:08 INDICATION: Shortness of breath and cough TECHNIQUE: Computed tomography (CT) of the chest was performed without intravenous contrast. The dose -length product (DLP) was 252.43 mGy-cm. Automated exposure control and iterative reconstruction tech nique were employed. COMPARISON: 12/28/2019 FINDINGS: There are moderate-sized pleural effusions. There is mild interlobular septal thickening. T here are airspace opacities of the right upper lobe corresponding to the chest radiographic abnormali ty. Airspace opacities are also seen in the lower lobes. There is no pneumothorax. Cardiomegaly is no zaki. There is mild mediastinal lymphadenopathy and likely mild bilateral hilar lymphadenopathy. Bilat eral gynecomastia is noted. There is mild thoracic spondylosis. IMPRESSION: 1. Right upper lobe airspace opacities corresponding to the chest radiographic finding in question, l ikely pneumonia. 2. Moderate-sized pleural effusions. 3. Cardiomegaly with mild pulmonary edema. Reviewed, dictated and finalized at location F. IMPRESSION: 1. Right upper lobe airspace opacities corresponding to the chest radiographic finding in question, likely pneumonia. 2. Moderate-sized pleural effusions. 3. Cardiomegaly with mild pulmonary edema.
--- NOTE | ~2022-03-30 | CT_ITS ---
EXAMINATION: CT abdomen pelvis wo con DATE: 03/31/2022 22:48 INDICATION: Urinary retention, history of bladder and prostate cancer TECHNIQUE: Computed tomography (CT) of the abdomen and pelvis was performed without intravenous contr ast. The dose-length product (DLP) was 918.72 mGy-cm. Automated exposure control and iterative recons truction technique were employed. COMPARISON: 01/10/2020 FINDINGS: There are moderate-sized pleural effusions which result in passive atelectasis of the visua lized lung bases. The heart size is normal. There is a small pericardial effusion. Calcified coronary artery atherosclerosis is noted. There is bilateral gynecomastia. Within the limitations of noncontr ast examination, the liver, spleen, gallbladder, and adrenal glands are normal. Punctate calcificatio n of the pancreas are consistent with chronic pancreatitis. There is a 10 mm cyst of the right kidney lower pole. The left kidney is unremarkable. The bladder is decompressed by a Veliz catheter. There is calcified atherosclerosis of the aorta and many of the other arteries. No pathologically enlarged abdominal lymph nodes are identified. There are changes of prostatectomy and pelvic lymph node dissec tion There is no free intraperitoneal gas or evidence of bowel obstruction. The appendix is normal. T here is severe lumbar spondylosis. IMPRESSION: 1. No CT correlate for the patient's symptoms. 2. Moderate-sized pleural effusions with passive atelectasis of the visualized lower lobes. Reviewed, dictated and finalized at location F.
--- NOTE | ~2022-03-30 | XR_ITS ---
XR chest 1V portable 04/02/2022 06:03 Indication: Fluid overload. Pneumonia. Procedure: AP portable chest Comparison: Comparison to multiple prior studies sequentially, with oldest reviewed study dated 03/26. Findings: Cardiomegaly with pulmonary edema. Small pleural effusions. No pneumothorax. No acute osseo us abnormality. Impression: 1: Cardiomegaly with pulmonary edema. 2: Small pleural effusions. Reviewed, dictated and finalized at location A. Impression: 1: Cardiomegaly with pulmonary edema. 2: Small pleural effusions.
--- NOTE | 2022-03-30 11:40 | ECG_ITS ---
Measurements Intervals [place] Rate: 102 P: 19 [place]: 240 QRS: -59 QRSD: 135 T: 88 QT: 336 QTc: 439 Interpretive Statements SINUS TACHYCARDIA WITH FIRST DEGREE AV BLOCK IVCD, WITH FEATURES OF BOTH RBBB/LBBB ANTEROLATERAL INFARCT OR DUE TO LBBB INFEROR INFARCT OR DUE TO LBBB BASELINE ARTIFACT- I, II, III, AVR, AVL, V4-V6 ABNORMAL ECG Electronically Signed On 03-30-2022 18:14:21 CDT by Paul Bryant D.O.
[2022-03-30 11:58] LABS: Basophils Percent Auto 0.3 % (0.2-1.2); Eosinophils Absolute Auto 0.1 K/mm3 (0-0.3); Eosinophils Percent Auto 0.6 % (0-4.4); Hematocrit 38.7 % (42.0-52.0); Hemoglobin 12.4 g/dL (14.0-18.0); Immature Granulocyte Absolute 0.04 K/mm3 (0.00-0.031); Immature Granulocyte Percent A 0.4 % (0-0.5); Lymphocytes Absolute Auto 0.78 K/mm3 (0.9-3.2); Lymphocytes Percent Auto 7.7 % (18.3-44.2); Mean Corpuscular Hemoglobin 28.8 pg (26-34); Mean Platelet Volume 9.7 fl (7.4-10.4); Monocytes Absolute Auto 0.8 K/mm3 (0.1-0.6); Monocytes Percent Auto 7.4 % (2.6-8.5); Neutrophils Absolute Auto 8.5 K/mm3 (1.3-6.7); Neutrophils Percent Auto 83.6 % (45.5-73.1); Platelet Count Result 258 k/mm3 (150-375); Red Cell Distribution Width 14.9 % (11.5-14.5); White Blood Count 10.1 K/mm3 (4.5-10.0)
[2022-03-30 12:11] LABS: Alanine Aminotransferase 14 U/L (6-50); Albumin Level 3.9 g/dL (3.5-5.1); Alkaline Phosphatase 108 U/L (38-126); Anion Gap 9 mmol/L (8-16); Aspartate Amino Transferase 23 U/L (17-59); Bilirubin,Total 0.8 mg/dL (0.2-1.3); Blood Urea Nitrogen 17 mg/dL (9-20); Calcium 8.7 mg/dL (8.4-10.2); Carbon Dioxide 23 mmol/L (22-30); Chloride 103 mmol/L (98-107); Estimated CRCL calculation 46 ml/min; Estimated Glomerular Filt Rate 53; Glucose 218 mg/dL (65-110); Potassium 4.8 mmol/L (3.4-5.0); Sodium 135 mmol/L (137-145)
[2022-03-30 14:17] LABS: NT Pro B Type Natriuretic Pept 3840 pg/mL (5-100); Troponin I < 0.012 ng/mL (0.000-0.034)
[2022-03-30] MEDS: FUROSEMIDE INJ 40 MG/4 ML VIAL IV PUSH ×2 (14:37→23:16)
[2022-03-30 14:40] LABS: SARS-CoV-2 RNA PCR Negative
--- NOTE | 2022-03-30 17:59 | PM.CNCAR ---
Assessment and Plan Assessment and plan (1) Pneumonia: Code(s): J18.9 - Pneumonia, unspecified organism Status: Acute Assessment and Plan: Antibiotics as per hospitalist. (2) CHF (congestive heart failure): Code(s): I50.9 - Heart failure, unspecified Status: Acute Assessment and Plan: Obtain echo to determine if systolic or diastolic heart failure. Diuresis with Lasix 40 mg IV BID. (3) Hyperlipidemia: Code(s): E78.5 - Hyperlipidemia, unspecified Status: Acute Assessment and Plan: On Fenofibrate. (4) Hypertension: Code(s): I10 - Essential (primary) hypertension Status: Acute Assessment and Plan: Stable. (5) Diabetes: Code(s): E11.9 - Type 2 diabetes mellitus without complications Status: Acute Assessment and Plan: Manage per hospitalist. History of Present Illness History of Present Illness Consult date/time: 03/30/22 17:59 Reason for consult: CHF. 81 yr old man presented to ER with sob. He has a history of DM, hypertension, dyslipidemia. Reports he has been getting more sob for the past month. He does have orthopnea and edema of legs. He does have a cough with sputum production. He walks with a walker only short distance due to having multiple vertebral fractures after a fall. Denies fever/chills, chest pain, palpitations, dizziness. EKG shows sinus tachycardia, IVCD with both RBBB/LBBB morphology. CXR shows bilateral airspace disease, either edema or pneumonia, bilateral pleural effusions; masslike density in right upper thorax. CT chest shows RUL airspace opacity likely pneumonia, mod size pleural effusions, cardiomegaly with mild pulm edema. Troponin 0. NTproBNP 3,840. Reason For Visit: New Onset HF, Hypoxia Review of Systems Review of Systems: All systems reviewed & are unremarkable except as noted in HPI and below Constitutional: Constitutional: Reports as per HPI, Denies chills, Reports fatigue and Denies fever(s) Cardiovascular: Cardiovascular: Reports as per HPI, Denies chest pain, Denies irregular heart rhythm, Reports leg edema and Denies lightheadedness Respiratory: Respiratory: Reports as per HPI, Reports change in phlegm color, Reports cough and Reports dyspnea Gastrointestinal: Gastrointestinal: Reports as per HPI and Denies abdominal pain Genitourinary: Genitourinary: Reports as per HPI and Denies dysuria Musculoskeletal: Musculoskeletal: Reports as per HPI, Reports back pain and Reports arthralgias Neurologic: Reports as per HPI, Denies dizziness and Denies syncope [facility] Past Medical History Medical History (Updated 03/30/22 @ 18:09 by Paul Bryant DO) Bilateral foot-drop Bladder cancer Cervical myelopathy Diabetes Diabetic peripheral neuropathy Hyperlipidemia Hypertension Osteoarthritis Peripheral neuropathy Prostate cancer Spinal stenosis Surgical History Surgical History H/O knee surgery multiple H/O spinal fusion cervical Family History Family History (Updated 01/09/20 @ 16:01 by Shabnam Bateman RN) Father No problems noted. Sibling No problems noted. Social History Social History Smoking status: Former smoker Smoking end date: 10/31/71 Alcohol intake: never Substance use: never Substance use type: does not use Gender identity (if verbalized by the patient): Male Spiritual care concerns: No Agree to blood products: Yes Meds Home Medications and Allergies Home Medications Medication Instructions Recorded Confirmed Type Macular Shield 03/30/22 History cyclosporine 0.05 % eye drops in a 2 drp EACH EYE Q12H 03/30/22 History dropperette (Restasis) fenofibrate 160 mg tablet tablet 03/30/22 History gabapentin 100 mg capsule 200 mg PO BID 03/30/22 History insulin lispro protamine-lispro ea subcut 03/30/22 History 100 uni
--- NOTE | 2022-03-30 18:37 | ADMGEN ---
This patient, Turner Veliz, was admitted to 3 [facility] Surg Room 303-01. Report received from ROCIO Steiner. Patient/family oriented to hospital policies and general routines including ID bracelet, bed and alarms, visiting hours, pain management, procedures, bathroom and other care routines, personal items, smoking policy, room service/diet, and visiting hours. Information on how to activate the Rapid Response Team has been discussed. Patient/Family are encouraged to report perceived risks to care and to ask questions if they do not understand what they are told or what they should do.
[2022-03-30 19:02] LABS: Glucose Point of Care 247 mg/dl (65-105)
--- NOTE | 2022-03-30 20:06 | ED.SOB ---
HPI - SOB/Dyspnea General Chief Complaint: Shortness of Breath/Dyspnea Stated Complaint: SOB x1 Month Time Seen by Provider: 03/30/22 13:38 History of Present Illness HPI Narrative: 81-year-old male who presents with several days of difficulty breathing at home, with cough, per at bedside he had recently seemed to choke on something, and she believes that since then he has been having the symptoms. No nausea or vomiting, but he does seem to be working more with breathing. No sick contacts at home. He denies any chest pain. No history of heart disease or heart failure. Related Data Home Medications Medication Instructions Recorded Confirmed Macular Shield PO BID 03/30/22 cyclosporine 0.05 % eye drops in a 2 drp EACH EYE TID 03/30/22 03/30/22 dropperette (Restasis) fenofibrate 160 mg tablet 1 tablet PO DAILY 03/30/22 03/30/22 gabapentin 100 mg capsule 200 mg PO BID 03/30/22 03/30/22 insulin lispro protamine-lispro 60 unit subcut TIDWM 03/30/22 03/30/22 100 unit/mL (50-50) subcutaneous pen (Humalog Mix 50-50 KwikPen) irbesartan 150 mg tablet 150 mg PO DAILY 03/30/22 03/30/22 levothyroxine 112 mcg tablet 1 tablet PO DAILY 03/30/22 03/30/22 omega 8-hla-keh-fish oil 1,000 mg 1 cap PO BID 03/30/22 03/30/22 (120 mg-180 mg) capsule (Fish Oil) Allergies Allergy/AdvReac Type Severity Reaction Status Date / Time meperidine Allergy Severe anaphylaxis Verified 03/30/22 18:40 Penicillins Allergy Severe anaphylaxis Verified 03/30/22 18:40 chocolate flavor Allergy Anaphylaxis Verified 03/30/22 18:40 egg Allergy Diarrhea Verified 03/30/22 18:40 narcotics AdvReac Mild Unknown Uncoded 03/30/22 13:53 Review of Systems Review of Systems: CONST: chills HEENT: No sore throat C/V: No chest pain RESP: Cough and difficulty breathing GI: No nausea or vomiting : No dysuria. M/S: No joint pain. SKIN: No rash. NEURO: [No headache or focal numbness or weakness] PSYCH: [No depression] PMFSH Past Medical History Medical History Bilateral foot-drop Bladder cancer Cervical myelopathy Diabetes Diabetic peripheral neuropathy Hyperlipidemia Hypertension Osteoarthritis Peripheral neuropathy Prostate cancer Spinal stenosis Surgical History Surgical History H/O knee surgery multiple H/O spinal fusion cervical Family History Family History Father No problems noted. Sibling No problems noted. Social History Social History Smoking packs per day: 2 Smoking cigarettes per day: 40.0 Years smoked: 15 Smoking pack-years: 30.00 Smoking status: Former smoker Tobacco type: cigarettes Alcohol intake: never Substance use: never Substance use type: other Other substance usage details: CBD gummicristobal Gender identity (if verbalized by the patient): Male Spiritual care concerns: No Agree to blood products: Yes Exam Narrative: EXAMINATION OF ORGAN SYSTEMS/BODY AREAS: Constitutional: Vital signs per nursing GENERAL: Appears to be working at breathing and slightly diaphoretic HEAD: Normal with no signs of head trauma. EYES: EOMI, conjunctiva normal ENT: Hearing grossly intact LUNGS: Labored breathing HEART: Tachycardic ABD: [Soft], [nontender to palpation] EXT: Normal range of motion SKIN: [No rashes or lesions.] NEURO: [Alert and oriented x 3. No gross focal sensory or strength deficits.] PSYCH: Normal affect Course Vital Signs Vital signs: Vital Signs Temperature 98.2 F 03/30/22 11:41 Pulse Rate 101 H 03/30/22 11:41 Respiratory Rate 20 03/30/22 11:41 Blood Pressure 128/82 03/30/22 11:41 Pulse Oximetry 99 03/30/22 11:41 Oxygen Delivery Room Air 03/30/22 11:41 Temperature 98.2 F 03/30/22 11:41 Pulse Rate 103 H 03/30/22 17:41 Respiratory Rate 20
--- NOTE | 2022-03-30 20:32 | PM.IMHP ---
H&P: HPI History of Present Illness Date/Time: 03/30/22 20:32 Chief Complaint: Shortness of breath and cough for 1 month Narrative: 81-year-old male with past medical history type 2 diabetes, diabetic peripheral neuropathy, hypertension and hypothyroidism who presented to the ER from home with shortness breath and cough for 1 month. Source of information is from patient report. The patient is an excellent historian. He tells me that for the last month he has been having a cough that is for the most part nonproductive. It was accompanied by orthopnea and paroxysmal nocturnal dyspnea. He denies any chest pain or palpitations. He denies any known fevers or chills but just prior to my evaluation the patient spiked a fever to 100?. He denies any known ill contacts. He did receive his COVID Pfizer vaccine in January and in April. He has not received his booster. His COVID PCR in ER was negative. He reports chronic lower extremity swelling. He did not think his legs are swollen more than usual. He does have chronic leakage of urine following his prostatectomy in 2003. But he he has had increased urinary frequency over the last 3 weeks. He has increased sensation of incomplete bladder emptying. He denies any dysuria or changes in appearance of his urine. He reports anorexia but denies difficulty swallowing or dysphagia. He denies history of CHF, [place], or stroke. He does have type 2 diabetes mellitus and takes 50 50 insulin 30 units twice a day and occasionally will take an extra dose in the evening if hyperglycemic. Review of Systems Review of Systems: 12 systems were reviewed with pertinent positives and negatives per HPI. Except as documented in the HPI, all other systems were reviewed and are negative. [facility] Past Medical History Medical History (Updated 03/30/22 @ 22:58 by Tarsha Lal DO) Bilateral foot-drop Bladder cancer In 2002 with recurrence in 2002 with recurrence in 2003 Cervical myelopathy Compression fracture of L5 vertebra Diabetes Diabetic peripheral neuropathy Hyperlipidemia Hypertension Hypothyroidism Osteoarthritis Prostate cancer Status post radical prostatectomy Spinal stenosis T1 vertebral fracture Vitamin D deficiency Surgical History Surgical History (Updated 03/30/22 @ 22:44 by Tarsha Lal DO) H/O knee surgery ACL and meniscus repair History of carpal tunnel surgery of left wrist History of fusion of cervical spine History of radical prostatectomy (2003) History of tonsillectomy and adenoidectomy Status post cataract extraction of both eyes with insertion of intraocular lens Family History Family History Sibling Mesothelioma Social History Social History (Updated 03/30/22 @ 22:50 by Tarsha Lal DO) Social History: Code status: Full code Surrogate decision maker: Smoking packs per day: 2 Smoking cigarettes per day: 40.0 Years smoked: 15 Smoking pack-years: 30.00 Smoking status: Former smoker Tobacco type: cigarettes Alcohol intake: never Substance use: never Substance use type: other Other substance usage details: CBD gummies Additional living arrangements comments: He lives at home with his of 57 years. They have 2 sons. 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 Gender identity (if verbalized by the patient): Male Spiritual care concerns: No Agree to blood products: Yes Meds Home Medications and Allergies Home Medications Medication Instructions Recorded Confirmed Type Macular Shield PO BID 03/30/22 History cyclosporine 0.05 % eye drops in a 2 drp EACH EYE TID 03/30/22 03/30/22 History dropperette (Restasis) fenofibrate 160 mg tablet 1 tablet PO DAILY 03/30/22 03/30/22 History gabapentin 100 mg capsule 200 mg PO BID 03/30/22 0
[2022-03-30 21:46] LABS: Glucose Point of Care 273 mg/dl (65-105)
[2022-03-30 23:58] LABS: Glucose Point of Care 236 mg/dl (65-105)
[2022-03-31] VITALS (12 sets, daily range): BP systolic 88–150; BP diastolic 36–60; PULSE 93–115; RESP 20–22; TEMP 36.3–37.7; O2SAT 90–97
--- NOTE | 2022-03-31 | ECHO_ITS ---
Patient Info Name: Turner Veliz Age: 81 years : 1940 Gender: Male Ht: 72 in Wt: 199 lbs BSA: 2.15 m2 HR: 96 bpm BP: 100 / 60 mmHg Heart Rhythm: Sinus Arrhythmia Technical Quality: Fair Exam Date: 03/31/2022 10:01 AM Exam Location: [facility] Patient Status: Inpatient Admit Date: 03/30/2022 Staff Ordering Physician: Paul Bryant DO Packaging Designer: Joanna Bryant RDCS Attending Provider: Noé Hines MD Referring Physician: Manny ZURITA; Exam Type: CA echo doppler color flow Study Info Indications - CHF Complete two-dimensional, color flow and Doppler transthoracic echocardiogram is performed. Summary 1. Complete two-dimensional, color flow and Doppler transthoracic echocardiogram is performed. 2. Left ventricular chamber dimension is mildly enlarged. 3. Entire apex is akinetic with inferoapical, anteroapical, septal apical akinesis. Basal segments appear to have normal contractility with mid segments hypokinesis. This suggests Takotsubo cardiomyopathy. 4. Left ventricular systolic function is moderately reduced, estimated at 35-40%. 5. The left ventricular diastolic function is abnormal. 6. E/e' 21 is elevated. 7. Right ventricular systolic function is moderately reduced and with abnormal TAPSE 1.1 cm. 8. There is mild aortic valve sclerosis. 9. There is mild mitral valve regurgitation. 10. There is mild tricuspid valve regurgitation. 11. No pulmonary hypertension, estimated pulmonary arterial systolic pressure is 34 mmHg. 12. There is trivial pericardial effusion. 13. Pleural effusion. Left Ventricle E/e' 21 is elevated. Entire apex is akinetic with inferoapical, anteroapical, septal apical akinesis. Basal segments appear to have normal contractility with mid segments hypokinesis. This suggests Takotsubo cardiomyopathy. Left ventricular chamber dimension is mildly enlarged. Left ventricular systolic function is moderately reduced, estimated at 35-40%. The left ventricular diastolic function is abnormal. Right Ventricle Right ventricular systolic function is moderately reduced and with abnormal TAPSE 1.1 cm. Right ventricular chamber dimension is normal. Left Atria Left atrial chamber dimension is normal. Right Atria Right atrial chamber dimension is normal. Aortic Valve The aortic valve is trileaflet. There is mild aortic valve sclerosis. There is no aortic valve stenosis. There is no aortic valve regurgitation. Pulmonic Valve There is no pulmonic regurgitation. Mitral Valve There is no mitral valve stenosis. There is mild mitral valve regurgitation. Tricuspid Valve There is mild tricuspid valve regurgitation. No pulmonary hypertension, estimated pulmonary arterial systolic pressure is 34 mmHg. Pericardium/Pleural Pleural effusion. There is trivial pericardial effusion. Inferior Vena Cava Normal inferior vena cava with >50% collapse upon inspiration consistent with normal right atrial pressure, 5 mmHg. Aorta The aortic root size at the sinus of Valsalva is normal. Left Ventricular Outflow Tract Name Value Normal LVOT 2D LVOT Diameter 2.0 cm LVOT Doppler
[2022-03-31] MEDS: LEVOTHYROXINE SODIUM 112 MCG TABLET PO (05:57)
[2022-03-31 06:36] LABS: Basophils Percent Auto 0.3 % (0.2-1.2); Eosinophils Percent Auto 0.3 % (0-4.4); Hematocrit 35.5 % (42.0-52.0); Hemoglobin 11.2 g/dL (14.0-18.0); Immature Granulocyte Absolute 0.03 K/mm3 (0.00-0.031); Immature Granulocyte Percent A 0.3 % (0-0.5); Lymphocytes Absolute Auto 1.39 K/mm3 (0.9-3.2); Lymphocytes Percent Auto 15.4 % (18.3-44.2); Mean Corpuscular HGB Conc 31.5 g/dl (32-36); Mean Corpuscular Hemoglobin 28.6 pg (26-34); Mean Corpuscular Volume 90.6 fl (80-100); Mean Platelet Volume 10.3 fl (7.4-10.4); Monocytes Absolute Auto 1.1 K/mm3 (0.1-0.6); Neutrophils Absolute Auto 6.5 K/mm3 (1.3-6.7); Neutrophils Percent Auto 71.7 % (45.5-73.1); Platelet Count Result 258 k/mm3 (150-375); Red Blood Count 3.92 M/mm3 (4.6-6.20); Red Cell Distribution Width 14.9 % (11.5-14.5); White Blood Count 9.1 K/mm3 (4.5-10.0)
[2022-03-31 06:49] LABS: Anion Gap 9 mmol/L (8-16); Blood Urea Nitrogen 17 mg/dL (9-20); Calcium 8.1 mg/dL (8.4-10.2); Carbon Dioxide 26 mmol/L (22-30); Chloride 99 mmol/L (98-107); Estimated CRCL calculation 40 ml/min; Estimated Glomerular Filt Rate 45; Glucose 109 mg/dL (65-110); Potassium 3.5 mmol/L (3.4-5.0); Sodium 134 mmol/L (137-145)
[2022-03-31 07:41] LABS: Glucose Point of Care 147 mg/dl (65-105)
--- NOTE | 2022-03-31 08:12 | PM.PNCARD ---
Progress Note: A&P Assessment and Plan (1) Pneumonia: Code(s): J18.9 - Pneumonia, unspecified organism Status: Acute Assessment and Plan: Antibiotics as per hospitalist. (2) CHF (congestive heart failure): Qualifiers: Heart failure type: unspecified Heart failure chronicity: acute Qualified Code(s): I50.9 - Heart failure, unspecified Code(s): I50.9 - Heart failure, unspecified Status: Acute Assessment and Plan: Obtain echo to determine if systolic or diastolic heart failure. Diuresis with Lasix 40 mg IV BID. (3) Hyperlipidemia: Code(s): E78.5 - Hyperlipidemia, unspecified Status: Acute Assessment and Plan: On Fenofibrate. (4) Hypertension: Code(s): I10 - Essential (primary) hypertension Status: Acute Assessment and Plan: Stable. (5) Diabetes: Code(s): E11.9 - Type 2 diabetes mellitus without complications Status: Acute Assessment and Plan: Manage per hospitalist. Subjective Date/time seen: 03/31/22 08:12 Reports sob. No chest pains. Exam Const: General: cooperative, healthy appearing and comfortable Resp: Auscultation: no crackles, no rales, no rhonchi, no wheezes and diminished lung sounds Cardio: Jugular venous distension: no JVD Rate: tachycardic Rhythm: regular rhythm Heart sounds: no murmurs Peripheral pulses: dorsalis pedis present GI: GI Palp: No abdominal tenderness and Yes Soft to palpation Neuro: General: oriented to person, oriented to place and oriented to time Extrem: Right lower extremity: edema Left lower extremity: edema Other: Mild edema of lower extremities. Objective Data Vital Signs Vital Signs: Vital Signs - 24 hr 03/30/22 11:41 03/30/22 12:29 03/30/22 13:48 Temperature 98.2 F Pulse Rate 101 H 98 107 H Respiratory Rate 20 20 Blood Pressure 128/82 114/56 L Pulse Oximetry 99 97 Oxygen Delivery Room Air Oxygen Flow Rate 03/30/22 13:48 03/30/22 13:52 03/30/22 13:34 Temperature Pulse Rate 107 H Respiratory Rate 37 H 40 H Blood Pressure 131/86 Pulse Oximetry 95 96 95 Oxygen Delivery Nasal Cannula Nasal Cannula Oxygen Flow Rate 2 2 03/30/22 13:37 03/30/22 13:45 03/30/22 13:46 Temperature Pulse Rate 106 H 110 H 106 H Respiratory Rate 32 H 30 H 31 H Blood Pressure 143/83 H 131/86 Pulse Oximetry 90 90 91 Oxygen Delivery Oxygen Flow Rate 03/30/22 14:00 03/30/22 14:01 03/30/22 14:15 Temperature Pulse Rate 109 H 111 H 114 H Respiratory Rate 38 H 34 H 39 H Blood Pressure 140/92 H Pulse Oximetry 89 L 90 78 L Oxygen Delivery Oxygen Flow Rate 03/30/22 14:16 03/30/22 14:30 03/30/22 14:31 Temperature Pulse Rate 112 H Respiratory Rate 32 H 35 H 37 H Blood Pressure 145/94 H 138/89 Pulse Oximetry 93 Oxygen Delivery Oxygen Flow Rate 03/30/22 14:45 03/30/22 14:46 03/30/22 17:41 Temperature Pulse Rate 110 H 109 H 103 H Respiratory Rate 39 H 37 H 20 Blood Pressure 122/76 133/83 Pulse Oximetry 95 96 96 Oxygen Delivery Oxygen Flow Rate 03/30/22 21:32 03/30/22 20:00 03/30/22 22:00 Temperature 100 F H Pulse Rate 102 H Respiratory Rate 20 Blood Pressure 115/68 Pulse Oximetry 95 97 96 Oxygen Delivery Nasal Cannula Nasal Cannula Oxygen Flow Rate 2 2 03/30/22 20:00 03/31/22 00:00 03/31/22 04:00 Temperature Pulse Rate 102 H 95 97 Respiratory Rate Blood Pressure Pulse Oximetry Oxygen Delivery Oxygen Flow Rate 03/31/22 05:16 Temperature 99 F Pulse Rate 96 Respiratory Rate 20 Blood Pressure 100/60 Pulse Oximetry 97 Oxygen Delivery Oxygen Flow Rate Intake/Output Intake/Output: Intake & Output 03/28/22 03/29/22 03/30/22 03/31/22 23:59 23:59 23:59 23:59 Intake Total 150 400 Output Total 900 600 Balance -750 -200 Meds/Results Medications: Active Medications Generic Name Dose Route Start Last Admin Trade N
[2022-03-31] MEDS: ENOXAPARIN 40 MG/0.4 ML SYRINGE SUB-Q (08:27)
[2022-03-31] MEDS: GABAPENTIN 100 MG CAPSULE 200 MG PO ×2 (08:31→17:09)
[2022-03-31] MEDS: OMEGA 3 POLYUNSAT FATTY ACIDS 1 GM CAP PO ×2 (08:31→17:09)
[2022-03-31] MEDS: cycloSPORINE 0.4 ML OPHTH SOLUTION 2 DROP EACH EYE ×3 (08:31→17:09)
[2022-03-31] MEDS: FUROSEMIDE INJ 40 MG/4 ML VIAL IV PUSH ×2 (08:32→17:20)
[2022-03-31] MEDS: IRBESARTAN 150 MG TABLET PO (08:32)
[2022-03-31] MEDS: FENOFIBRATE 160 MG TABLET PO (08:32)
[2022-03-31 11:55] LABS: Glucose Point of Care 81 mg/dl (65-105)
--- NOTE | 2022-03-31 14:58 | PCNSR ---
On 03/31/22, the student, Adriane Mcginnis, provided care and completed [facility] documentation on this patient. I have reviewed the student's documentation and agree with the findings.
--- NOTE | 2022-03-31 15:21 | PM.IMPN ---
Progress Note: A&P Assessment and Plan (1) Pneumonia: Qualifiers: Laterality: right Lung location: upper lobe of lung Pneumonia type: due to unspecified organism Qualified Code(s): J18.9 - Pneumonia, unspecified organism Code(s): J18.9 - Pneumonia, unspecified organism Status: Acute (2) Acute respiratory failure with hypoxia: Code(s): J96.01 - Acute respiratory failure with hypoxia Status: Acute (3) CHF (congestive heart failure): Qualifiers: Heart failure type: unspecified Heart failure chronicity: acute Qualified Code(s): I50.9 - Heart failure, unspecified Code(s): I50.9 - Heart failure, unspecified Status: Acute (4) Type 2 diabetes mellitus with hyperglycemia, with long-term current use of insulin: Code(s): E11.65 - Type 2 diabetes mellitus with hyperglycemia; Z79.4 - senior living (current) use of insulin Status: Acute Plan # acute hypoxic respiratory failure multifactorial right upper lobe pneumonia and congestive heart failure. Oxygen supplementation. # right upper lobe pneumonia on Levaquin as allergic to penicillin. Urine Legionella pneumococcal antigen ordered which is pending mycoplasma titers have been ordered. Blood culture pending. COVID negative. Check influenza # congestive heart failure. Newly diagnosed chest x-ray with cardiomegaly and bilateral pleural effusion associated lower extremity edema. BNP elevated at 3840. Started on IV diuretics. Cardiology on board. Echo has been ordered pending report. Troponins negative. # Diabetes mellitus type 2 on insulin at home 50 50 30 in the morning and at 2:00 a.m.. Currently on SSI. Resume home 50 50 insulin if he is able to take orally. Hypoglycemia protocol # bilateral pleural effusions # hyperlipidemia resume home medication # Hypertension resume home medication # Hypothyroidism home medication # DVT prophylaxis Lovenox # full code status Subjective Date/time seen: 03/31/22 15:21 Interval history: HPI:81-year-old male with past medical history type 2 diabetes, diabetic peripheral neuropathy, hypertension and hypothyroidism who presented to the ER from home with shortness breath and cough for 1 month.? Source of information is from patient report.? The patient is an excellent historian.? He tells me that for the last month he has been having a cough that is for the most part nonproductive.? It was accompanied by orthopnea and paroxysmal nocturnal dyspnea.? He denies any chest pain or palpitations.? He denies any known fevers or chills but just prior to my evaluation the patient spiked a fever to 100?.? He denies any known ill contacts.? He did receive his COVID Pfizer vaccine in January and in April.? He has not received his booster.? His COVID PCR in ER was negative.? He reports chronic lower extremity swelling.? He did not think his legs are swollen more than usual.? He does have chronic leakage of urine following his prostatectomy in 2003.? But he he has had increased urinary frequency over the last 3 weeks.? He has increased sensation of incomplete bladder emptying.? He denies any dysuria or changes in appearance of his urine.? He reports anorexia but denies difficulty swallowing or dysphagia.? He denies history of CHF, [place], or stroke.? He does have type 2 diabetes mellitus and takes 50 50 insulin 30 units twice a day and occasionally will take an extra dose in the evening if hyperglycemic. 03/31/2022 does not feel so well today. Had a spike of fever last evening. Reports shortness of breath and lower extremity swelling. Has been urinating okay. Denies any chest pain. Does have cough. Review of Systems Review of Systems: All systems reviewed & are unremarkable except as noted in HPI and below (HPI) Exam Narrative: General:? Well-developed, well-nourished, elderly HEENT:? Mucous membranes are tacky, no oral pharyngeal erythema, fair dentition, pupils are equal and reactive with evidence of pr
[2022-03-31] MEDS: ALBUTEROL SULFATE (*SP) AEROSOL 1 PUFF 2 PUFF INHALATION ×2 (16:20→21:34)
[2022-03-31 16:40] LABS: Glucose Point of Care 92 mg/dl (65-105)
[2022-03-31 16:47] LABS: Influenza Control Positive
[2022-03-31] MEDS: IPRATROPIUM BR 0.02% INH SOLN 0.5 MG/2.5 ML VIAL INHALATION (21:35)
[2022-03-31 21:41] LABS: Glucose Point of Care 114 mg/dl (65-105)
[2022-03-31] MEDS: AZTREONAM 2 GM in SODIUM CHLORIDE 0.9% IV 100 ML 200 ML IVPB (23:44)
[2022-04-01] VITALS (25 sets, daily range): BP systolic 74–107; BP diastolic 46–63; PULSE 82–109; RESP 20–32; TEMP 35.7–37.5; O2SAT 89–100
[2022-04-01] MEDS: SODIUM CHLORIDE 0.9% IV 500 ML IV CONT (01:40)
[2022-04-01] MEDS: IPRATROPIUM BR 0.02% INH SOLN 0.5 MG/2.5 ML VIAL INHALATION ×3 (01:55→21:00)
[2022-04-01] MEDS: SODIUM CHLORIDE 0.9% IV 250 ML IV CONT (03:10)
[2022-04-01] MEDS: ALBUTEROL SULFATE (*SP) AEROSOL 1 PUFF 2 PUFF INHALATION ×2 (04:08→21:05)
[2022-04-01] MEDS: ALBUTEROL SULFATE NEB 2.5 MG/3 ML INH 10 MG INHALATION (04:18)
--- NOTE | 2022-04-01 05:33 | PC.NURSE ---
patient transferred from [address] [place] [address]/surg.
--- NOTE | 2022-04-01 05:35 | PC.NURSE ---
Transfered to room [address] Tiffanie notified of room change.
[2022-04-01] MEDS: LEVOTHYROXINE SODIUM 112 MCG TABLET PO (05:41)
[2022-04-01 07:01] LABS: Basophils Percent Auto 0.3 % (0.2-1.2); Eosinophils Percent Auto 0.4 % (0-4.4); Hematocrit 31.9 % (42.0-52.0); Immature Granulocyte Absolute 0.05 K/mm3 (0.00-0.031); Immature Granulocyte Percent A 0.6 % (0-0.5); Lymphocytes Absolute Auto 1.34 K/mm3 (0.9-3.2); Lymphocytes Percent Auto 16.9 % (18.3-44.2); Mean Corpuscular HGB Conc 31.3 g/dl (32-36); Mean Corpuscular Hemoglobin 28.7 pg (26-34); Mean Corpuscular Volume 91.4 fl (80-100); Mean Platelet Volume 9.9 fl (7.4-10.4); Monocytes Absolute Auto 0.9 K/mm3 (0.1-0.6); Monocytes Percent Auto 10.7 % (2.6-8.5); Neutrophils Absolute Auto 5.7 K/mm3 (1.3-6.7); Neutrophils Percent Auto 71.1 % (45.5-73.1); Platelet Count Result 205 k/mm3 (150-375); Red Blood Count 3.49 M/mm3 (4.6-6.20); Red Cell Distribution Width 15.3 % (11.5-14.5); White Blood Count 7.9 K/mm3 (4.5-10.0)
[2022-04-01 07:33] LABS: Alanine Aminotransferase 15 U/L (6-50); Albumin Level 3.2 g/dL (3.5-5.1); Alkaline Phosphatase 75 U/L (38-126); Anion Gap 9 mmol/L (8-16); Aspartate Amino Transferase 31 U/L (17-59); Bilirubin,Total 0.5 mg/dL (0.2-1.3); Blood Urea Nitrogen 32 mg/dL (9-20); Calcium 7.5 mg/dL (8.4-10.2); Carbon Dioxide 24 mmol/L (22-30); Chloride 96 mmol/L (98-107); Estimated CRCL calculation 23 ml/min; Estimated Glomerular Filt Rate 24; Glucose 138 mg/dL (65-110); Potassium 3.2 mmol/L (3.4-5.0); Sodium 129 mmol/L (137-145)
[2022-04-01 07:59] LABS: Glucose Point of Care 131 mg/dl (65-105)
--- NOTE | 2022-04-01 08:13 | PCOTNOTE ---
Attempted OT evaluation this AM. Per RN, patient was moved to IMU this AM at 0600 secondary to respiratory distress. He is currently on bipap. She recommends we hold therapy this AM and attempt later this afternoon. Will continue to attempt.
[2022-04-01 09:10] LABS: Appearance Urine Clear (Clear); Bilirubin Urine 1+ (Negative); Blood Urine 2+ (Negative); Color Urine Yellow (Yellow); Glucose Urine UA Negative (Negative); Ketones Urine Trace mg/dL (Negative); Leukocyte Esterase Ur 1+ LEU/UL (NEGATIVE); Nitrate Urine Negative (Negative); Protein Urine 1+ mg/dL (Negative); Specific Grav Ur >= 1.030 (1.001-1.035); Urobilinogen Urine 0.2 mg/dL (<2.0)
--- NOTE | 2022-04-01 09:10 | PM.PNCARD ---
Progress Note: A&P Assessment and Plan (1) Pneumonia: Code(s): J18.9 - Pneumonia, unspecified organism Status: Acute Assessment and Plan: Antibiotics as per hospitalist. (2) CHF (congestive heart failure): Qualifiers: Heart failure type: unspecified Heart failure chronicity: acute Qualified Code(s): I50.9 - Heart failure, unspecified Code(s): I50.9 - Heart failure, unspecified Status: Acute Assessment and Plan: Acute combined systolic and diastolic heart failure. Echo shows EF 35-40%, diastolic dysfunction (E/e' 21), wall motion abnormalities involving apex mainly and some in mid segments suggest Takotsubo cardiomyopathy. Diuresis with Lasix 40 mg IV BID, but decrease 20 mg IV BID given hypotension overnight. Started low dose Toprol XL 12.5 mg daily and decrease Irbesartan 75 mg daily given low BP. (3) Hyperlipidemia: Code(s): E78.5 - Hyperlipidemia, unspecified Status: Acute Assessment and Plan: On Fenofibrate. (4) Hypertension: Code(s): I10 - Essential (primary) hypertension Status: Acute Assessment and Plan: Stable. (5) Diabetes: Code(s): E11.9 - Type 2 diabetes mellitus without complications Status: Acute Assessment and Plan: Manage per hospitalist. Subjective Date/time seen: 04/01/22 09:10 He is on BiPAP. He has sob. No chest pains. Exam Const: General: cooperative and ill appearing Resp: Auscultation: no crackles, no rales, no rhonchi, no wheezes and diminished lung sounds Cardio: Jugular venous distension: no JVD Rate: tachycardic Rhythm: regular rhythm Heart sounds: no murmurs Peripheral pulses: dorsalis pedis present GI: GI Palp: No abdominal tenderness and Yes Soft to palpation Neuro: General: oriented to person, oriented to place and oriented to time Extrem: Right lower extremity: edema Left lower extremity: edema Other: Mild edema of lower extremities. Objective Data Vital Signs Vital Signs: Vital Signs - 24 hr 03/31/22 12:00 03/31/22 14:00 03/31/22 16:00 Temperature 97.4 F L Pulse Rate 93 95 105 H Respiratory Rate 22 H Blood Pressure 88/50 L Pulse Oximetry 96 Oxygen Delivery Oxygen Flow Rate 03/31/22 16:58 03/31/22 21:39 03/31/22 22:00 Temperature 99.9 F H Pulse Rate 95 Respiratory Rate 20 Blood Pressure 150/58 H 92/36 L Pulse Oximetry 94 97 Oxygen Delivery Nasal Cannula Oxygen Flow Rate 2 03/31/22 20:00 04/01/22 01:25 04/01/22 02:55 Temperature 99.5 F Pulse Rate 82 Respiratory Rate 20 Blood Pressure 74/46 L 84/50 L Pulse Oximetry 94 94 Oxygen Delivery Nasal Cannula Nasal Cannula Oxygen Flow Rate 2 2 03/31/22 20:00 04/01/22 00:00 04/01/22 04:00 Temperature 96.3 F L Pulse Rate 115 H 100 86 Respiratory Rate 28 H Blood Pressure 90/58 L Pulse Oximetry 93 Oxygen Delivery Oxygen Flow Rate 04/01/22 04:10 04/01/22 04:05 04/01/22 04:00 Temperature Pulse Rate 98 98 Respiratory Rate 22 H Blood Pressure Pulse Oximetry 93 Oxygen Delivery Nasal Cannula Oxygen Flow Rate 2 04/01/22 05:24 04/01/22 05:44 04/01/22 05:48 Temperature 98.1 F Pulse Rate 98 98 105 H Respiratory Rate 24 H 24 H 22 H Blood Pressure 90/46 L Pulse Oximetry 94 94 91 Oxygen Delivery Nasal Cannula BiPAP Oxygen Flow Rate 2 35 04/01/22 05:49 04/01/22 05:45 04/01/22 05:45 Temperature 98.7 F Pulse Rate 105 H 109 H Respiratory Rate 22 H 25 H Blood Pressure 92/48 L Pulse Oximetry 89 L 91 93 Oxygen Delivery BiPAP BiPAP Oxygen Flow Rate 40 04/01/22 07:58 04/01/22 08:00 Temperature Pulse Rate 94 Respiratory Rate 24 H Blood Pressure Pulse Oximetry 96 97 Oxygen Delivery BiPAP Nasal Cannula Oxygen Flow Rate 2 Intake/Output Intake/Output: Intake & Output 03/29/22 03/30/22 03/31/22 04/01/22 23:59 23:59 23:59 23:59 Intake Total 150 1366 1600 Output Total 900 1000 100 Ba
[2022-04-01 09:14] LABS: Bacteria Urine Trace /hpf; Mucus Urine Rare /lpf; RBC Urine >75 /hpf (0-2); Squamous Epithelial Cell Urine Rare /hpf (Few); WBC Urine 31-50 /hpf (0-3)
--- NOTE | 2022-04-01 09:24 | PM.CNPUL ---
Assessment and Plan Assessment and plan (1) Pneumonia: Code(s): J18.9 - Pneumonia, unspecified organism Status: Acute Assessment and Plan: Patient presents with 1 month worsening shortness of breath, PND, orthopnea, fever, white blood cell count 10.1, BNP [address] scan with right upper lobe infiltrate and bilateral pleural effusions. His been found to have Takotsubo cardiomyopathy with an EF of 35-40% and he is also developed acute kidney injury. the patient does have evidence of pneumonia and currently is COVID RT PCR study is negative, his influenza swab is negative, urine Legionella and pneumococcal antigen tests are pending, mycoplasma IgG and IgM are pending. Patient was initially on Levaquin started 531 and with his deterioration last night was changed to vancomycin and aztreonam given his penicillin allergy. I will continue Levaquin at this time for atypical coverage and I spoke to pharmacy and he will be on 750 mg Q 48 hours with his next dose at 8:00 p.m. tonight. I recommended a right thoracentesis to the patient and his and explained the risks and benefits of the procedure. At this time they are waiting to make a decision on this. The patient has not had any evidence of reactive airways disease and has no evidence of COPD on a CT scan. He has not been on bronchodilators as an outpatient and he feels that albuterol and ipratropium offer no benefit at this time. I will change them to p.r.n.. I will check an ABG to assess for hypercarbic respiratory failure. Currently the patient is on room air with saturations 95%. While pneumonia may be explaining some of the patient's respiratory issues I suspect his cardiomyopathy is a major contributor to his 1 month history of shortness of breath, PND and orthopnea. Cardiology is following and the patient is being diuresed with Lasix 40 IV b.i.d. (2) Pleural effusion: Code(s): J90 - Pleural effusion, not elsewhere classified Status: Acute Assessment and Plan: Patient has bilateral free-flowing pleural effusions right greater than left on his CT scan from admission on 03/30/2022. There is evidence of a right upper lobe pneumonia and I have recommended thoracentesis To exclude empyema and assess whether this is a transudate or exudate and send cytology to exclude cancer. The patient and his will make this decision soon. Will follow with you History of Present Illness History of Present Illness Consult date: 04/01/22 Chief complaint: New Onset HF, Hypoxia Narrative: 04/01/2022: This is a new pulmonary consult for pneumonia. 81-year-old with a history of diabetes, hypertension, hyperlipidemia, prostate cancer status post radical prostatectomy 2003, C3-C7 spinal stenosis status post cervical spine fusion in approximately 2009 and a fall in December of 2019. He went to rehabilitation and is using a walker since then. Patient presented to the emergency department on 03/30/2022 with shortness of breath that was progressively worse over the last month. The who I spoke to noted and as per radiation event approximately 2 and half weeks ago and he coughed up the food. Over the last month he has worsening cough, PND and orthopnea. He denies any blood in his sputum. He checks his saturations at home and on room air there were 96% or above. Patient did say he was having some recent fevers at home. Patient smoked tobacco from age [age] at 1/2 pack per day for a total of 7.5 pack years. Patient denies vaping, illicit drug use, sandblasting, welding, asbestos work. Patient was exposed to secondhand smoke from his father who smokes cigars. Patient does take gummies for his pain. During his high school [employer] he worked at the [employer] doing would ever they wanted him to do any was exposed to dust. Of note his brother worked in a mine and also of mesothelioma. Patient presented to the emergency department and he had a CT
[2022-04-01] MEDS: cycloSPORINE 0.4 ML OPHTH SOLUTION 2 DROP EACH EYE ×3 (09:36→17:28)
[2022-04-01] MEDS: GABAPENTIN 100 MG CAPSULE 200 MG PO ×2 (09:37→17:28)
[2022-04-01] MEDS: FENOFIBRATE 160 MG TABLET PO (09:37)
[2022-04-01] MEDS: OMEGA 3 POLYUNSAT FATTY ACIDS 1 GM CAP PO ×2 (09:38→17:29)
[2022-04-01 09:44] LABS: Add Urine Microscopic? YES
[2022-04-01 09:59] LABS: Eosinophil Urine None Seen % (None Seen)
[2022-04-01] MEDS: AZTREONAM 2 GM in SODIUM CHLORIDE 0.9% IV 100 ML 200 ML IVPB ×3 (10:10→23:41)
--- NOTE | 2022-04-01 10:26 | PCPTNOTE ---
Attempted PT evaluation this AM. Per OT note: Per RN, patient was moved to IMU this AM at 0600 secondary to respiratory distress. He is currently on bipap. She recommends we hold therapy this AM and attempt later this afternoon. Will continue to attempt.
[2022-04-01 10:36] LABS: Alveolar/Arterial O2 Gradient 49.9 mmHg; Device ROOM AIR; Fractional Inspired Oxygen 21 %; HCO3 ABG 22.6 mEq/l (22.0-26.0); Modified Allen's Test Pass; Oxygen Content ABG 14.9 %vol (16.0-22.0); Oxygen Saturation ABG 91.7 % (95.0-100.0); Oxyhemoglobin 89.5 % THb (90.0-100.0); PCO2 ABG 34.1 mmHg (35.0-45.0); PO2 FiO2 Ratio Arterial Blood 2.81 %; Site Drawn RIGHT RADIAL; Total Hemoglobin 11.8 g/dL (12.0-18.0); pH ABG 7.439 (7.350-7.450)
[2022-04-01 11:41] LABS: Lactate Dehydrogenase 359 U/L (313-618); NT Pro B Type Natriuretic Pept 5580 pg/mL (5-100)
[2022-04-01] MEDS: POTASSIUM CHLORIDE 20 MEQ PACKET (FOR LIQUID) PO (11:56)
[2022-04-01] MEDS: ENOXAPARIN 30 MG/0.3 ML SYRINGE SUB-Q (11:56)
[2022-04-01 12:04] LABS: Creatinine Urine 266.4 mg/dL; Urea Random Urine 463 MG/DL
[2022-04-01 12:09] LABS: Sodium Urine Random < 5 meq/L
[2022-04-01 12:12] LABS: Glucose Point of Care 174 mg/dl (65-105)
--- NOTE | 2022-04-01 14:24 | PM.CNNEP ---
Assessment and Plan Assessment and plan (1) IVANA (acute kidney injury): Code(s): N17.9 - Acute kidney failure, unspecified Status: Acute Assessment and Plan: baseline creatinine seems to run 1.2 - 1.4mg/dl (at best) clear fluctuations noted whenever he is hospitalizaed (arguing he likely has some baseline CKD) several factors contributing: aggressive IV diuresis relative hypotension in the last 24 hours depressed EF/cardiomyopathy (element of cardiorenal syndrome) infection/possible early sepsis (pneumonia) evaluation to date: urine electrolyte prerenal (but this could be reflective of depressed EF) urine eosinophils negative CT of abdomen without mention of obstruction urine output appears have diminished overnight associated with rise in creatinine which is concerning continue efforts to optimize hemodynamics check CPK discontinue ARB follow repeat labs and UOP (2) Acute respiratory failure with hypoxia: Code(s): J96.01 - Acute respiratory failure with hypoxia Status: Acute Assessment and Plan: likely secondary to pneumonia, CHF, and pleural effusions continue interventions as tolerated (3) CHF (congestive heart failure): Qualifiers: Heart failure chronicity: acute Heart failure type: unspecified Qualified Code(s): I50.9 - Heart failure, unspecified Code(s): I50.9 - Heart failure, unspecified Status: Acute Assessment and Plan: as noted by elevated BNP, CXR findings (cardiomegaly and pleural effusions), and BLE edema Cardiology following Echo results noted (EF ~ 35 - 40% with suggestive takotsubo cardiomyopathy) benefit to use of dobutamine or other ionotropic agents? (defer to Cardiology) (4) Pneumonia: Qualifiers: Laterality: right Lung location: upper lobe of lung Pneumonia type: due to unspecified organism Qualified Code(s): J18.9 - Pneumonia, unspecified organism Code(s): J18.9 - Pneumonia, unspecified organism Status: Acute Assessment and Plan: on antibiotics follow culture data COVID-19/Influenza negative Pulmonary recommendations noted (possible thoracentesis) (5) Hypertension: Code(s): I10 - Essential (primary) hypertension Status: Chronic Assessment and Plan: relative hypotension noted holding BP medications with parameters follow trend of hemodynamics (6) Diabetes: Code(s): E11.9 - Type 2 diabetes mellitus without complications Status: Chronic Assessment and Plan: follow accuchecks glycemic control Long and extensive discussion (> 20 minutes) with patient and his at bedside regarding his renal dysfunction and the current plan of care/therapy to address this issue. They both appeared to voice understanding. Will continue to follow. History of Present Illness Reason for Consult Consult date: 04/01/22 Reason for consult: acute renal failure Chief Complaint Chief complaint: New Onset HF, Hypoxia History of Present Illness Narrative: The patient is a 81-year-old male with an extensive past medical history as outlined below who presented to [facility] Emergency room with complaints of shortness of breath. Apparently, the patient has been having issues and problems with shortness of breath in association with a cough for the last month. The cough has been nonproductive but has been associated with orthopnea and paroxysmal nocturnal dyspnea. He denies any chest pain or palpitations as well as fevers or chills although he did apparently have a low-grade temperature on presentation to the emergency room. He also reports lower extremity edema but this is a chronic issue and he does not think his lower extremities are any worse than usual. Do these constellation of symptoms that have been progressively getting worse, he presented to the ER for further evaluation. Workup and evaluation emergency room jeffo
--- NOTE | 2022-04-01 14:24 | P.CONNP_ITS ---
Assessment and Plan Assessment and plan (1) VIANA (acute kidney injury): Code(s): N17.9 - Acute kidney failure, unspecified Status: Acute Assessment and Plan: * baseline creatinine seems to run 1.2 - 1.4mg/dl (at best) * clear fluctuations noted whenever he is hospitalizaed (arguing he likely has some baseline CKD) * several factors contributing: * aggressive IV diuresis * relative hypotension in the last 24 hours * depressed EF/cardiomyopathy (element of cardiorenal syndrome) * infection/possible early sepsis (pneumonia) * evaluation to date: * urine electrolyte prerenal (but this could be reflective of depressed EF) * urine eosinophils negative * CT of abdomen without mention of obstruction * urine output appears have diminished overnight associated with rise in creatinine which is concerning * continue efforts to optimize hemodynamics * check CPK * discontinue ARB * follow repeat labs and UOP (2) Acute respiratory failure with hypoxia: Code(s): J96.01 - Acute respiratory failure with hypoxia Status: Acute Assessment and Plan: * likely secondary to pneumonia, CHF, and pleural effusions * continue interventions as tolerated (3) CHF (congestive heart failure): Qualifiers: Heart failure chronicity: acute Heart failure type: unspecified Qualified Code(s): I50.9 - Heart failure, unspecified Code(s): I50.9 - Heart failure, unspecified Status: Acute Assessment and Plan: * as noted by elevated BNP, CXR findings (cardiomegaly and pleural effusions), and BLE edema * Cardiology following * Echo results noted (EF ~ 35 - 40% with suggestive takotsubo cardiomyopathy) * benefit to use of dobutamine or other ionotropic agents? (defer to Cardiology) (4) Pneumonia: Qualifiers: Laterality: right Lung location: upper lobe of lung Pneumonia type: due to unspecified organism Qualified Code(s): J18.9 - Pneumonia, unspecified organism Code(s): J18.9 - Pneumonia, unspecified organism Status: Acute Assessment and Plan: * on antibiotics * follow culture data * COVID-19/Influenza negative * Pulmonary recommendations noted (possible thoracentesis) (5) Hypertension: Code(s): I10 - Essential (primary) hypertension Status: Chronic Assessment and Plan: * relative hypotension noted * holding BP medications with parameters * follow trend of hemodynamics (6) Diabetes: Code(s): E11.9 - Type 2 diabetes mellitus without complications Status: Chronic Assessment and Plan: * follow accuchecks * glycemic control Long and extensive discussion (> 20 minutes) with patient and his at bedside regarding his renal dysfunction and the current plan of care/therapy to address this issue. They both appeared to voice understanding. Will continue to follow. History of Present Illness Reason for Consult Consult date: 04/01/22 Reason for consult: acute renal failure Chief Complaint Chief complaint: New Onset HF, Hypoxia History of Present Illness Narrative: The patient is a 81-year-old male with an extensive past medical history as outlined below who presented to [facility] Emergency room with complaints of shortness of breath. Apparently, the patient has been having issues and problems with shortness of breath in association with a cough for the last month. The cough has been nonproductive but has been associated with orthopnea and paroxysmal nocturnal dyspnea. He denies any ches
--- NOTE | 2022-04-01 14:35 | PM.IMPN ---
Progress Note: A&P Assessment and Plan (1) Pneumonia: Qualifiers: Laterality: right Lung location: upper lobe of lung Pneumonia type: due to unspecified organism Qualified Code(s): J18.9 - Pneumonia, unspecified organism Code(s): J18.9 - Pneumonia, unspecified organism Status: Acute (2) Acute respiratory failure with hypoxia: Code(s): J96.01 - Acute respiratory failure with hypoxia Status: Acute (3) CHF (congestive heart failure): Qualifiers: Heart failure type: unspecified Heart failure chronicity: acute Qualified Code(s): I50.9 - Heart failure, unspecified Code(s): I50.9 - Heart failure, unspecified Status: Acute (4) Type 2 diabetes mellitus with hyperglycemia, with long-term current use of insulin: Code(s): E11.65 - Type 2 diabetes mellitus with hyperglycemia; Z79.4 - group home (current) use of insulin Status: Acute Plan # acute hypoxic respiratory failure multifactorial right upper lobe pneumonia and congestive heart failure. Oxygen supplementation. Went to distress 03/31/2022 and placed on BiPAP. Will remove the BiPAP and will use p.r.n. for his work of breathing. This is likely related to congestive heart failure and volume overload. Closely monitor volume status # right upper lobe pneumonia on Levaquin as allergic to penicillin. Urine Legionella pneumococcal antigen ordered which is pending mycoplasma titers have been ordered. Blood culture pending. COVID negative. Influenza negative. Pulmonary consultation Antibiotics has been switched to vancomycin and aztreonam. Levaquin continued for atypical coverage at this time. Discussed with Pulmonary today # congestive heart failure. Newly diagnosed chest x-ray with cardiomegaly and bilateral pleural effusion associated lower extremity edema. BNP elevated at 3840. Started on IV diuretics. Cardiology on board. Echo echo with new wall motion abnormality suggestive of takotsubo cardiomyopathy along with ejection fraction down to 35-40%. On beta-norman and diuretic medication titration limited due to hypotension and concurrently renal failure Troponin negative. # acute renal failure creatinine worsened since admission up to 2.6 this morning. Baseline creatinine 0.8. Likely due to over-diuresis and hypotension overnight. With IV fluid bolus he went into respiratory distress and so will avoid any further fluid boluses. Blood pressure is borderline normal currently and will continue to monitor. Renal has been consulted. CT abdomen pelvis with no signs of obstructive uropathy. Veliz has been in place and will continue to monitor urine output # diabetes Mellitus type 2 on insulin at home 50/50 30 in the morning and at 2:00 a.m.. Currently on SSI. Resume home 50 50 insulin if he is able to take orally. Hypoglycemia protocol # bilateral pleural effusions pulmonary has suggested thoracentesis however family has refused this is to rule out underlying empyema # hyperlipidemia resume home medication # Hypertension resume home medication # Hypothyroidism home medication # DVT prophylaxis Lovenox # full code status Have spoken to [facility] transfer center per patient and family request for him to be transferred to their facility. Due to a lateral transfer the transfer was denied by the accepting physician at [facility]. Upon request from the family again have contacted [facility] which he is at capacity for any external non time restricted transfer. I have notified the patient and the family this transfer is a lateral transfer and hence might not be covered with insurance and I am told they were okay with this. They have refused needed further care hair as they want things done at other hospital. This might not be realistically feasible as most of the hospital are at capacity for taking any new transfers at this time. Subjective Date/time seen: 04/01/22 14:35 Interv
--- NOTE | 2022-04-01 15:43 | PCOTNOTE ---
Attempted OT evaluation again - Patient refusing any/all activity at this time due to feeling too weak . Attempted to provide encouragement on the benefits of therapy, but he continued to decline. Family in room and discussing transferring to another hospital. Will continue to attempt.
--- NOTE | 2022-04-01 15:52 | PCPTNOTE ---
Attempted PT evaluation again - Per OT, Patient refusing any/all activity at this time due to feeling too weak . Attempted to provide encouragement on the benefits of therapy, but he continued to decline. Family in room and discussing transferring to another hospital. Will continue to attempt.
[2022-04-01 16:40] LABS: Glucose Point of Care 223 mg/dl (65-105)
[2022-04-01] MEDS: INSULIN ASPART (*BKC) 100 UNITS/ML SUB-Q (17:35)
[2022-04-01 19:21] LABS: Anion Gap 8 mmol/L (8-16); Blood Urea Nitrogen 39 mg/dL (9-20); Calcium 7.6 mg/dL (8.4-10.2); Carbon Dioxide 22 mmol/L (22-30); Chloride 100 mmol/L (98-107); Estimated CRCL calculation 25 ml/min; Estimated Glomerular Filt Rate 26; Glucose 219 mg/dL (65-110); Potassium 4.1 mmol/L (3.4-5.0); Sodium 130 mmol/L (137-145)
[2022-04-01 21:17] LABS: Glucose Point of Care 179 mg/dl (65-105)
[2022-04-02] VITALS (17 sets, daily range): BP systolic 87–96; BP diastolic 55–63; PULSE 74–116; RESP 15–29; TEMP 36.1–36.3; O2SAT 93–100
[2022-04-02 05:13] LABS: Basophils Percent Auto 0.4 % (0.2-1.2); Eosinophils Absolute Auto 0.1 K/mm3 (0-0.3); Eosinophils Percent Auto 1.2 % (0-4.4); Hematocrit 30.6 % (42.0-52.0); Hemoglobin 10.2 g/dL (14.0-18.0); Immature Granulocyte Absolute 0.04 K/mm3 (0.00-0.031); Immature Granulocyte Percent A 0.5 % (0-0.5); Lymphocytes Absolute Auto 1.17 K/mm3 (0.9-3.2); Mean Corpuscular HGB Conc 33.3 g/dl (32-36); Mean Corpuscular Hemoglobin 29.3 pg (26-34); Mean Corpuscular Volume 87.9 fl (80-100); Mean Platelet Volume 9.8 fl (7.4-10.4); Monocytes Absolute Auto 0.8 K/mm3 (0.1-0.6); Monocytes Percent Auto 10.1 % (2.6-8.5); Neutrophils Absolute Auto 5.7 K/mm3 (1.3-6.7); Neutrophils Percent Auto 72.8 % (45.5-73.1); Platelet Count Result 206 k/mm3 (150-375); Red Blood Count 3.48 M/mm3 (4.6-6.20); Red Cell Distribution Width 15.1 % (11.5-14.5); White Blood Count 7.8 K/mm3 (4.5-10.0)
[2022-04-02 05:22] LABS: Alanine Aminotransferase 19 U/L (6-50); Albumin Level 3.2 g/dL (3.5-5.1); Alkaline Phosphatase 75 U/L (38-126); Anion Gap 8 mmol/L (8-16); Aspartate Amino Transferase 36 U/L (17-59); Bilirubin,Total 0.4 mg/dL (0.2-1.3); Blood Urea Nitrogen 44 mg/dL (9-20); Calcium 7.4 mg/dL (8.4-10.2); Carbon Dioxide 23 mmol/L (22-30); Chloride 96 mmol/L (98-107); Estimated CRCL calculation 27 ml/min; Estimated Glomerular Filt Rate 29; Glucose 177 mg/dL (65-110); Magnesium 2.1 mg/dL (1.6-2.3); Potassium 4.2 mmol/L (3.4-5.0); Sodium 127 mmol/L (137-145)
[2022-04-02] MEDS: LEVOTHYROXINE SODIUM 112 MCG TABLET PO (06:25)
[2022-04-02 07:48] LABS: Glucose Point of Care 186 mg/dl (65-105)
--- NOTE | 2022-04-02 08:03 | PM.PNCARD ---
Progress Note: A&P Assessment and Plan (1) Pneumonia: Code(s): J18.9 - Pneumonia, unspecified organism Status: Acute Assessment and Plan: Antibiotics as per hospitalist. (2) CHF (congestive heart failure): Qualifiers: Heart failure type: unspecified Heart failure chronicity: acute Qualified Code(s): I50.9 - Heart failure, unspecified Code(s): I50.9 - Heart failure, unspecified Status: Acute Assessment and Plan: Acute combined systolic and diastolic heart failure. Echo shows EF 35-40%, diastolic dysfunction (E/e' 21), wall motion abnormalities involving apex mainly and some in mid segments suggest Takotsubo cardiomyopathy. Diuresis with Lasix 40 mg IV BID, but on hold after 1st day as he had hypotension and ARF with it. Kidney function starting to improve. Started low dose Toprol XL 12.5 mg daily and on Irbesartan 75 mg daily. (3) Hyperlipidemia: Code(s): E78.5 - Hyperlipidemia, unspecified Status: Acute Assessment and Plan: On Fenofibrate. (4) Hypertension: Code(s): I10 - Essential (primary) hypertension Status: Chronic Assessment and Plan: Low normal. (5) Diabetes: Code(s): E11.9 - Type 2 diabetes mellitus without complications Status: Chronic Assessment and Plan: Manage per hospitalist. Subjective Date/time seen: 04/02/22 08:03 Reports chronic pain in back/neck. Has sob but improved from yesterday. No chest pain. Exam Const: General: cooperative, healthy appearing and comfortable Resp: Auscultation: no crackles, no rales, no rhonchi, no wheezes and diminished lung sounds Cardio: Jugular venous distension: no JVD Rate: tachycardic Rhythm: regular rhythm Heart sounds: no murmurs Peripheral pulses: dorsalis pedis present GI: GI Palp: No abdominal tenderness and Yes Soft to palpation Neuro: General: oriented to person, oriented to place and oriented to time Extrem: Right lower extremity: edema Left lower extremity: edema Other: Mild edema of lower extremities. Objective Data Vital Signs Vital Signs: Vital Signs - 24 hr 04/01/22 08:45 04/01/22 08:45 04/01/22 12:00 Temperature 98.5 F Pulse Rate 94 99 Respiratory Rate 24 H Blood Pressure 104/60 Pulse Oximetry 98 98 Oxygen Delivery Nasal Cannula Oxygen Flow Rate 2 Fraction of Inspired Oxygen 04/01/22 16:00 04/01/22 12:00 04/01/22 12:00 Temperature 98.3 F Pulse Rate 97 94 Respiratory Rate 22 H Blood Pressure 91/55 L Pulse Oximetry 98 96 Oxygen Delivery Nasal Cannula Oxygen Flow Rate 2 Fraction of Inspired Oxygen 04/01/22 14:00 04/01/22 16:00 04/01/22 16:00 Temperature Pulse Rate 98 97 Respiratory Rate Blood Pressure Pulse Oximetry 95 Oxygen Delivery Room Air Oxygen Flow Rate Fraction of Inspired Oxygen 04/01/22 18:00 04/01/22 20:00 04/01/22 21:06 Temperature 98.5 F Pulse Rate 100 91 Respiratory Rate 20 Blood Pressure 101/63 Pulse Oximetry 92 94 Oxygen Delivery Nasal Cannula Oxygen Flow Rate 2 Fraction of Inspired Oxygen 04/01/22 21:00 04/01/22 21:08 04/01/22 20:00 Temperature Pulse Rate 84 86 Respiratory Rate Blood Pressure Pulse Oximetry 92 Oxygen Delivery Nasal Cannula Oxygen Flow Rate 2 Fraction of Inspired Oxygen 04/01/22 22:00 04/01/22 22:00 04/01/22 23:13 Temperature Pulse Rate 96 96 Respiratory Rate 23 H Blood Pressure Pulse Oximetry 95 Oxygen Delivery BiPAP Oxygen Flow Rate Fraction of Inspired Oxygen 04/01/22 23:38 04/02/22 00:00 04/02/22 00:00 Temperature 97.6 F Pulse Rate 95 93 Respiratory Rate 20 Blood Pressure 94/58 L Pulse Oximetry 98 98 Oxygen Delivery Nasal Cannula Oxygen Flow Rate 2 Fraction of Inspired Oxygen 04/02/22 02:47 04/02/22 02:00 04/02/22 04:00 Temperature 97.4 F L Pulse Rate 92 91 Respiratory Rate 24 H 15 Blood Pressure 87/5
--- NOTE | 2022-04-02 08:19 | PM.PNPUL ---
Progress Note: A&P Assessment and Plan (1) Pneumonia: Code(s): J18.9 - Pneumonia, unspecified organism Status: Acute Assessment and Plan: 04/01 Patient presents with 1 month worsening shortness of breath, PND, orthopnea, fever, white blood cell count 10.1, BNP [address] scan with right upper lobe infiltrate and bilateral pleural effusions. His been found to have Takotsubo cardiomyopathy with an EF of 35-40% and he is also developed acute kidney injury. the patient does have evidence of pneumonia and currently is COVID RT PCR study is negative, his influenza swab is negative, urine Legionella and pneumococcal antigen tests are pending, mycoplasma IgG and IgM are pending. Patient was initially on Levaquin started 531 and with his deterioration last night was changed to vancomycin and aztreonam given his penicillin allergy. I will continue Levaquin at this time for atypical coverage and I spoke to pharmacy and he will be on 750 mg Q 48 hours with his next dose at 8:00 p.m. tonight. I recommended a right thoracentesis to the patient and his and explained the risks and benefits of the procedure. At this time they are waiting to make a decision on this. The patient has not had any evidence of reactive airways disease and has no evidence of COPD on a CT scan. He has not been on bronchodilators as an outpatient and he feels that albuterol and ipratropium offer no benefit at this time. I will change them to p.r.n.. I will check an ABG to assess for hypercarbic respiratory failure. Currently the patient is on room air with saturations 95%. While pneumonia may be explaining some of the patient's respiratory issues I suspect his cardiomyopathy is a major contributor to his 1 month history of shortness of breath, PND and orthopnea. Cardiology is following and the patient is being diuresed with Lasix 40 IV b.i.d. 04/02 The patient complains of intermittent shortness of breath stating he can't breathe and is requiring BiPAP support during these episodes. Intermittently when he uses off of BiPAP ease on 2 L with saturations 98%. Currently he is on 2 L with saturations 98%. States that he is breathing better right now. White blood cell count is 7.8, he is afebrile, creatinine is 2.2 He has declined thoracentesis at this point. Chest x-ray today demonstrates congestion with cardiomegaly and small effusions. Per family's request he is awaiting transfer to [facility]. patient is now afebrile and his leukocytosis has resolved. Patient is on Levaquin started 531 and vancomycin and aztreonam started 04/01. Chest x-ray does not show any worsening of the right upper lobe infiltrate but there is evidence of congestion. He intermittently requires noninvasive ventilation support and does not tolerate BiPAP. I will attempt him on noninvasive ventilation with an AVAPS mode The backup rate of 14, tidal volume 500, EPAP 6, minimal inspiratory pressure 7, maximal inspiratory pressure 25, inspiratory time 1.0 seconds, rise 3, and 35% FiO2 to see if this is more comfortable for him. (2) Pleural effusion: Code(s): J90 - Pleural effusion, not elsewhere classified Status: Acute Assessment and Plan: 04/01 Patient has bilateral free-flowing pleural effusions right greater than left on his CT scan from admission on 03/30/2022. There is evidence of a right upper lobe pneumonia and I have recommended thoracentesis to exclude empyema and assess whether this is a transudate or exudate and send cytology to exclude cancer. The patient and his will make this decision soon. 04/02 Chest x-ray today with small bilateral pleural effusions. Patient has refused thoracentesis at this time. Will continue with the antibiotics and diuresis as tolerated. Discussed with Dr. Hines Will follow with you Subjective Date/time seen: 04/02/22 08:19 Interval history: 04/01/2022:? This is a new pulmonary
[2022-04-02] MEDS: AZTREONAM 2 GM in SODIUM CHLORIDE 0.9% IV 100 ML 200 ML IVPB ×3 (09:15→23:46)
[2022-04-02] MEDS: cycloSPORINE 0.4 ML OPHTH SOLUTION 2 DROP EACH EYE ×3 (09:16→16:23)
[2022-04-02] MEDS: ENOXAPARIN 30 MG/0.3 ML SYRINGE SUB-Q (09:16)
[2022-04-02] MEDS: GABAPENTIN 100 MG CAPSULE 200 MG PO ×2 (09:16→16:23)
[2022-04-02] MEDS: OMEGA 3 POLYUNSAT FATTY ACIDS 1 GM CAP PO ×2 (09:16→16:23)
[2022-04-02] MEDS: FENOFIBRATE 160 MG TABLET PO (09:37)
[2022-04-02 12:03] LABS: Glucose Point of Care 170 mg/dl (65-105)
--- NOTE | 2022-04-02 12:53 | PM.IMPN ---
Progress Note: A&P Assessment and Plan (1) Pneumonia: Qualifiers: Laterality: right Lung location: upper lobe of lung Pneumonia type: due to unspecified organism Qualified Code(s): J18.9 - Pneumonia, unspecified organism Code(s): J18.9 - Pneumonia, unspecified organism Status: Acute (2) Acute respiratory failure with hypoxia: Code(s): J96.01 - Acute respiratory failure with hypoxia Status: Acute (3) CHF (congestive heart failure): Qualifiers: Heart failure type: unspecified Heart failure chronicity: acute Qualified Code(s): I50.9 - Heart failure, unspecified Code(s): I50.9 - Heart failure, unspecified Status: Acute (4) Type 2 diabetes mellitus with hyperglycemia, with long-term current use of insulin: Code(s): E11.65 - Type 2 diabetes mellitus with hyperglycemia; Z79.4 - FDC (current) use of insulin Status: Acute Plan # acute hypoxic respiratory failure multifactorial right upper lobe pneumonia and congestive heart failure. Oxygen supplementation. Went to distress 03/31/2022 and placed on BiPAP. Will remove the BiPAP and will use p.r.n. for his work of breathing. This is likely related to congestive heart failure and volume overload. Closely monitor volume status On BiPAP p.r.n. and oxygen supplementation # right upper lobe pneumonia on Levaquin as allergic to penicillin. Urine Legionella pneumococcal antigen ordered which is pending mycoplasma titers have been ordered. Blood culture pending. COVID negative. Influenza negative. Pulmonary consultation Antibiotics has been switched to vancomycin and aztreonam. Levaquin continued for atypical coverage at this time. Discussed with Pulmonary # congestive heart failure. Newly diagnosed chest x-ray with cardiomegaly and bilateral pleural effusion associated lower extremity edema. BNP elevated at 3840. Started on IV diuretics. Cardiology on board. Echo echo with new wall motion abnormality suggestive of takotsubo cardiomyopathy along with ejection fraction down to 35-40%. On beta-norman and diuretic medication titration limited due to hypotension and concurrently renal failure Troponin negative. continue to hold diuresis for now function recovers # acute renal failure creatinine worsened since admission up to 2.6 12/2021. Baseline creatinine 0.8. Likely due to over-diuresis and hypotension overnight. With IV fluid bolus he went into respiratory distress and so will avoid any further fluid boluses. Blood pressure is borderline normal currently and will continue to monitor. Renal has been consulted. CT abdomen pelvis with no signs of obstructive uropathy. Veliz has been in place and will continue to monitor urine output renal function continues to improve now # diabetes Mellitus type 2 on insulin at home 50/50 30 in the morning and at 2:00 a.m.. Currently on SSI. Resume home 50 50 insulin if he is able to take orally. Hypoglycemia protocol # bilateral pleural effusions pulmonary has suggested thoracentesis however family has refused this is to rule out underlying empyema # hyperlipidemia resume home medication # Hypertension resume home medication # Hypothyroidism home medication # DVT prophylaxis Lovenox # full code status 04/01/2022 Have spoken to [facility] per patient and family request for him to be transferred to their facility. Due to a lateral transfer the transfer was denied by the accepting physician at [facility]. Upon request from the family again have contacted [facility] which he is at capacity for any external non time restricted transfer. I have notified the patient and the family this transfer is a lateral transfer and hence might not be covered with insurance and I am told they were okay with this. They have refused needed further care hair as they want things done at other hospital. This might not be realistically feasible
[2022-04-02 13:34] LABS: Pneumococcal Antigen Urine Not Detected (Not Detected)
--- NOTE | 2022-04-02 13:40 | PM.PNNEP ---
Progress Note: A&P Assessment and Plan (1) IVANA (acute kidney injury): Code(s): N17.9 - Acute kidney failure, unspecified Status: Acute Assessment and Plan: baseline creatinine seems to run 1.2 - 1.4mg/dl (at best) clear fluctuations noted whenever he is hospitalized (arguing he likely has some baseline CKD) several factors contributing: aggressive IV diuresis relative hypotension in the last 24 hours depressed EF/cardiomyopathy (element of cardiorenal syndrome) infection/possible early sepsis (pneumonia) evaluation to date: urine electrolyte prerenal (but this could be reflective of depressed EF) urine eosinophils negative CT of abdomen without mention of obstruction continue efforts to optimize hemodynamics hold ARB follow repeat labs and UOP (2) Acute respiratory failure with hypoxia: Code(s): J96.01 - Acute respiratory failure with hypoxia Status: Acute Assessment and Plan: likely secondary to pneumonia, CHF, and pleural effusions continue interventions as tolerated (3) CHF (congestive heart failure): Qualifiers: Heart failure chronicity: acute Heart failure type: unspecified Qualified Code(s): I50.9 - Heart failure, unspecified Code(s): I50.9 - Heart failure, unspecified Status: Acute Assessment and Plan: as noted by elevated BNP, CXR findings (cardiomegaly and pleural effusions), and BLE edema Cardiology following Echo results noted (EF ~ 35 - 40% with suggestive takotsubo cardiomyopathy) benefit to use of dobutamine or other ionotropic agents? (defer to Cardiology) (4) Pneumonia: Qualifiers: Laterality: right Lung location: upper lobe of lung Pneumonia type: due to unspecified organism Qualified Code(s): J18.9 - Pneumonia, unspecified organism Code(s): J18.9 - Pneumonia, unspecified organism Status: Acute Assessment and Plan: on antibiotics follow culture data COVID-19/Influenza negative Pulmonary recommendations noted (possible thoracentesis) (5) Hypertension: Code(s): I10 - Essential (primary) hypertension Status: Chronic Assessment and Plan: relative hypotension noted holding BP medications with parameters follow trend of hemodynamics (6) Diabetes: Code(s): E11.9 - Type 2 diabetes mellitus without complications Status: Chronic Assessment and Plan: follow accuchecks glycemic control Will continue to follow. Subjective Date/time seen: 04/02/22 13:40 The patient states he feels his breathing is doing better and has noted better urine output in the last 24 hours; major complaint currently at the time of my visit was constipation and lack of a good bowel movement since his admission; at bedside and we discussed the situation. Exam Narrative: General: WD/WN male in NAD Heart: normal S1 and S2; no rub Lungs: decreased breath sounds at bases Abdomen: soft, nontender, nondistended, positive bowel sounds Extremities: no cyanosis or clubbing; 1+ edema Skin: warm and dry Objective Data Vital Signs Vital Signs: Vital Signs Temp Pulse Resp BP Pulse Ox O2 Del Method O2 Flow Rate 04/02/22 13:20 Room Air 04/02/22 12:00 36.2 C L 92 24 H 96/60 L 94 04/02/22 12:00 92 04/02/22 12:00 Room Air 04/02/22 10:00 94 04/02/22 08:00 90 04/02/22 08:00 Room Air 04/02/22 08:39 98 Nasal Cannula 2 04/02/22 08:26 Nasal Cannula 1 04/02/22 07:59 36.1 C L 90 28 H 92/59 L 98 04/02/22 06:00 89 04/02/22 04:00 92 04/02/22 04:00 100 BiPAP 04/02/22 04:00 36.3 C L 91 15 87/55 L 100 04/02/22 02:00 92 04/02/22 02:47 24 H 98 BiPAP 04/02/22 00:00 93 04/02/22 00:00 98 Nasal Cannula 2 04/01/22 23:38 36.4 C 95 20 94/58 L 98 04/01/22 23:13 23 H 95 BiPAP 04/01/22 22:00 96
--- NOTE | 2022-04-02 13:40 | P.PNNP_ITS ---
Progress Note: A&P Assessment and Plan (1) IVANA (acute kidney injury): Code(s): N17.9 - Acute kidney failure, unspecified Status: Acute Assessment and Plan: * baseline creatinine seems to run 1.2 - 1.4mg/dl (at best) * clear fluctuations noted whenever he is hospitalized (arguing he likely has some baseline CKD) * several factors contributing: * aggressive IV diuresis * relative hypotension in the last 24 hours * depressed EF/cardiomyopathy (element of cardiorenal syndrome) * infection/possible early sepsis (pneumonia) * evaluation to date: * urine electrolyte prerenal (but this could be reflective of depressed EF) * urine eosinophils negative * CT of abdomen without mention of obstruction * continue efforts to optimize hemodynamics * hold ARB * follow repeat labs and UOP (2) Acute respiratory failure with hypoxia: Code(s): J96.01 - Acute respiratory failure with hypoxia Status: Acute Assessment and Plan: * likely secondary to pneumonia, CHF, and pleural effusions * continue interventions as tolerated (3) CHF (congestive heart failure): Qualifiers: Heart failure chronicity: acute Heart failure type: unspecified Qualified Code(s): I50.9 - Heart failure, unspecified Code(s): I50.9 - Heart failure, unspecified Status: Acute Assessment and Plan: * as noted by elevated BNP, CXR findings (cardiomegaly and pleural effusions), and BLE edema * Cardiology following * Echo results noted (EF ~ 35 - 40% with suggestive takotsubo cardiomyopathy) * benefit to use of dobutamine or other ionotropic agents? (defer to Cardiology) (4) Pneumonia: Qualifiers: Laterality: right Lung location: upper lobe of lung Pneumonia type: due to unspecified organism Qualified Code(s): J18.9 - Pneumonia, unspecified organism Code(s): J18.9 - Pneumonia, unspecified organism Status: Acute Assessment and Plan: * on antibiotics * follow culture data * COVID-19/Influenza negative * Pulmonary recommendations noted (possible thoracentesis) (5) Hypertension: Code(s): I10 - Essential (primary) hypertension Status: Chronic Assessment and Plan: * relative hypotension noted * holding BP medications with parameters * follow trend of hemodynamics (6) Diabetes: Code(s): E11.9 - Type 2 diabetes mellitus without complications Status: Chronic Assessment and Plan: * follow accuchecks * glycemic control Will continue to follow. Subjective Date/time seen: 04/02/22 13:40 The patient states he feels his breathing is doing better and has noted better urine output in the last 24 hours; major complaint currently at the time of my visit was constipation and lack of a good bowel movement since his admission; at bedside and we discussed the situation. Exam Narrative: General: WD/WN male in NAD Heart: normal S1 and S2; no rub Lungs: decreased breath sounds at bases Abdomen: soft, nontender, nondistended, positive bowel sounds Extremities: no cyanosis or clubbing; 1+ edema Skin: warm and dry Objective Data Vital Signs Vital Signs: Vital Signs Temp Pulse Resp BP Pulse Ox O2 Del Method O2 Flow Rate 04/02/22 13:20 Room Air 04/02/22 12:00 36.2 C L 92 24 H 96/60 L 94 04/02/22 12:00 92 04/02/22 12:00 Rosa
--- NOTE | 2022-04-02 15:38 | ECG_ITS ---
Measurements Intervals [place] Rate: 109 P: ND: 0 QRS: 177 QRSD: 145 T: 19 QT: 400 QTc: 540 Interpretive Statements ATRIAL FIBRILLATION WITH RAPID VENTRICULAR RESPONSE WITH ABERRANT CONDUCTION OR VENTRICULAR PREMATURE COMPLEXES RIGHT BUNDLE BRANCH BLOCK [120+ ms QRS DURATION, UPRIGHT V1, 40+ ms S IN I/aVL/V4/V5/V6] LEFT POSTERIOR FASCICULAR BLOCK [QRS AXIS > 109, INFERIOR Q] ANTERIOR MYOCARDIAL INFARCTION , PROBABLY RECENT [40+ ms Q WAVE AND/OR ST/T ABNORMALITY IN V3/V4] LOW-VOLTAGE QRS IN LIMB LEADS ABNORMAL ECG COMPARED TO ECG 03/30/2022 11:42:31 ATRIAL FIBRILLATION NOW PRESENT ABERRANT CONDUCTION OF SUPRAVENTRICULAR BEAT(S) NOW PRESENT LEFT POSTERIOR FASCICULAR BLOCK NOW PRESENT Electronically Signed On 04-02-2022 17:27:17 CDT by Fredrick Rodas M.D.
[2022-04-02 16:34] LABS: Glucose Point of Care 141 mg/dl (65-105)
[2022-04-02] MEDS: AMIODARONE 360 MG/D5W 200 ML 360 MG/200 ML BAG 33.33 MG IV CONT (17:18)
[2022-04-02] MEDS: AMIODARONE 150 MG/D5W 100 ML 150 MG/100 ML BAG 600 MG IV CONT (17:18)
[2022-04-02 20:32] LABS: Legionella pneumophila Ag Ur Not Detected (Not Detected)
[2022-04-02 21:36] LABS: Glucose Point of Care 94 mg/dl (65-105)
[2022-04-02 22:20] LABS: Mycoplasma IgM Antibody Titer 148 U/mL (<770)
[2022-04-02] MEDS: AMIODARONE 360 MG/D5W 200 ML 360 MG/200 ML BAG 16.67 MG IV CONT (23:10)
[2022-04-02] MEDS: GLYCERIN ADULT 1 SUPP.RECT RECTAL (23:46)
[2022-04-03] VITALS (17 sets, daily range): BP systolic 90–114; BP diastolic 57–70; PULSE 68–87; RESP 20–24; TEMP 36.1–36.5; O2SAT 92–100
[2022-04-03 04:54] LABS: Basophils Percent Auto 0.2 % (0.2-1.2); Eosinophils Absolute Auto 0.1 K/mm3 (0-0.3); Eosinophils Percent Auto 0.9 % (0-4.4); Hematocrit 32.8 % (42.0-52.0); Hemoglobin 10.8 g/dL (14.0-18.0); Immature Granulocyte Absolute 0.03 K/mm3 (0.00-0.031); Immature Granulocyte Percent A 0.3 % (0-0.5); Lymphocytes Absolute Auto 1.48 K/mm3 (0.9-3.2); Lymphocytes Percent Auto 16.8 % (18.3-44.2); Mean Corpuscular HGB Conc 32.9 g/dl (32-36); Mean Corpuscular Volume 87.9 fl (80-100); Mean Platelet Volume 10.4 fl (7.4-10.4); Monocytes Absolute Auto 0.8 K/mm3 (0.1-0.6); Monocytes Percent Auto 9.1 % (2.6-8.5); Neutrophils Absolute Auto 6.4 K/mm3 (1.3-6.7); Neutrophils Percent Auto 72.7 % (45.5-73.1); Platelet Count Result 219 k/mm3 (150-375); Red Blood Count 3.73 M/mm3 (4.6-6.20); Red Cell Distribution Width 14.6 % (11.5-14.5); White Blood Count 8.8 K/mm3 (4.5-10.0)
[2022-04-03 05:08] LABS: Alanine Aminotransferase 81 U/L (6-50); Albumin Level 3.2 g/dL (3.5-5.1); Alkaline Phosphatase 84 U/L (38-126); Anion Gap 8 mmol/L (8-16); Aspartate Amino Transferase 125 U/L (17-59); Bilirubin,Total 0.2 mg/dL (0.2-1.3); Blood Urea Nitrogen 51 mg/dL (9-20); Calcium 7.6 mg/dL (8.4-10.2); Carbon Dioxide 23 mmol/L (22-30); Chloride 98 mmol/L (98-107); Estimated CRCL calculation 29 ml/min; Estimated Glomerular Filt Rate 26; Glucose 102 mg/dL (65-110); Magnesium 2.4 mg/dL (1.6-2.3); Potassium 4.2 mmol/L (3.4-5.0); Sodium 129 mmol/L (137-145)
[2022-04-03] MEDS: LEVOTHYROXINE SODIUM 112 MCG TABLET PO (06:05)
--- NOTE | 2022-04-03 06:54 | ECG_ITS ---
Measurements Intervals [place] Rate: 72 P: NC: 0 QRS: -62 QRSD: 151 T: 103 QT: 465 QTc: 512 Interpretive Statements SINUS RHYTHM WITH FIRST-DEGREE AV BLOCK RIGHT BUNDLE-BRANCH BLOCK INFERIOR MYOCARDIAL INFARCTION , OF INDETERMINATE AGE [40+ ms Q WAVE AND/OR ST/T ABNORMALITY IN II/aVF] ANTEROSEPTAL MYOCARDIAL INFARCTION , OF INDETERMINATE AGE [40+ ms Q WAVE IN V1-V4] COMPARED TO ECG 04/02/2022 15:54:00 THE PATIENT IS NOW IN SINUS RHYTHM Electronically Signed On 04-03-2022 9:31:54 CDT by Veronika Rodriguez M.D.
--- NOTE | 2022-04-03 08:00 | P.PNIM_ITS ---
Progress Note: A&P Assessment and Plan (1) Pneumonia: Qualifiers: Laterality: right Lung location: upper lobe of lung Pneumonia type: due to unspecified organism Qualified Code(s): J18.9 - Pneumonia, unspecified organism Code(s): J18.9 - Pneumonia, unspecified organism Status: Acute (2) Acute respiratory failure with hypoxia: Code(s): J96.01 - Acute respiratory failure with hypoxia Status: Acute (3) CHF (congestive heart failure): Qualifiers: Heart failure type: unspecified Heart failure chronicity: acute Qualified Code(s): I50.9 - Heart failure, unspecified Code(s): I50.9 - Heart failure, unspecified Status: Acute (4) Type 2 diabetes mellitus with hyperglycemia, with long-term current use of insulin: Code(s): E11.65 - Type 2 diabetes mellitus with hyperglycemia; Z79.4 - long-term (current) use of insulin Status: Acute Plan # acute hypoxic respiratory failure multifactorial right upper lobe pneumonia and congestive heart failure. Oxygen supplementation. Went to distress 03/31/2022 and placed on BiPAP. Will remove the BiPAP and will use p.r.n. for his work of breathing. This is likely related to congestive heart failure and volume overload. Closely monitor volume status On BiPAP p.r.n. and oxygen supplementation # right upper lobe pneumonia on Levaquin as allergic to penicillin. Urine Legionella pneumococcal antigen ordered which is pending mycoplasma titers have been ordered. Blood culture pending. COVID negative. Influenza negative. Pulmonary consultation Antibiotics has been switched to vancomycin and aztreonam. Levaquin continued for atypical coverage at this time. Discussed with Pulmonary # congestive heart failure. Newly diagnosed chest x-ray with cardiomegaly and bilateral pleural effusion associated lower extremity edema. BNP elevated at 3840. Started on IV diuretics. Cardiology on board. Echo echo with new wall motion abnormality suggestive of takotsubo cardiomyopathy along with ejection fraction down to 35-40%. On beta-norman and diuretic medication titration limited due to hypotension and concurrently renal failure Troponin negative. continue to hold diuresis for now function recovers # acute renal failure creatinine worsened since admission up to 2.6 12/2021. Baseline creatinine 0.8. Likely due to over-diuresis and hypotension overnight. With IV fluid bolus he went into respiratory distress and so will avoid any further fluid boluses. Blood pressure is borderline normal currently and will continue to monitor. Renal has been consulted. CT abdomen pelvis with no signs of obstructive uropathy. Veliz has been in place and will continue to monitor urine output renal function continues to improve now # diabetes Mellitus type 2 on insulin at home 50/50 30 in the morning and at 2:00 a.m.. Currently on SSI. Resume home 50 50 insulin if he is able to take orally. Hypoglycemia protocol # bilateral pleural effusions pulmonary has suggested thoracentesis however family has refused this is to rule out underlying empyema # hyperlipidemia resume home medication # Hypertension resume home medication # Hypothyroidism home medication # DVT prophylaxis Lovenox # full code status 04/01/2022 Have spoken to [facility] per patient and family request for him to be transferred to their facility. Due to a lateral transfer the transfer was denied by the accepting physician at [facility]. Upon request from the family again have contacted [facility] which he is at capacity for any external non time restricted tra
--- NOTE | 2022-04-03 08:08 | PM.PNCARD ---
Progress Note: A&P Assessment and Plan (1) Pneumonia: Code(s): J18.9 - Pneumonia, unspecified organism Status: Acute Assessment and Plan: Antibiotics as per hospitalist. (2) CHF (congestive heart failure): Qualifiers: Heart failure type: unspecified Heart failure chronicity: acute Qualified Code(s): I50.9 - Heart failure, unspecified Code(s): I50.9 - Heart failure, unspecified Status: Acute Assessment and Plan: Acute combined systolic and diastolic heart failure. Echo shows EF 35-40%, diastolic dysfunction (E/e' 21), wall motion abnormalities involving apex mainly and some in mid segments suggest Takotsubo cardiomyopathy. Diuresis with Lasix 40 mg IV BID, but on hold after 1st day as he had hypotension and ARF with it. Kidney function starting to improve. Due to hypotension, Toprol XL 12.5 mg daily and on Irbesartan 75 mg daily are on hold. (3) Hyperlipidemia: Code(s): E78.5 - Hyperlipidemia, unspecified Status: Acute Assessment and Plan: On Fenofibrate. (4) Hypertension: Code(s): I10 - Essential (primary) hypertension Status: Chronic Assessment and Plan: Low normal. (5) Diabetes: Code(s): E11.9 - Type 2 diabetes mellitus without complications Status: Chronic Assessment and Plan: Manage per hospitalist. (6) PAF (paroxysmal atrial fibrillation): Code(s): I48.0 - Paroxysmal atrial fibrillation Status: Acute Assessment and Plan: Had new onset on 04/02/22. Amiodarone drip started and converted on same day. Will stop drip after a total of 24 hours on it, then start Amiodarone 200 mg PO BID to maintain sinus rhythm. Check EKG and QT interval as he is on Levaquin which can prolong QT interval. [id number] 5. Discuss anticoagulation vs Aspirin 325 mg daily. He is at high risk for cardioembolism but was in atrial fib for less than 8 hours and back to normal rhythm. Start aspirin 325 mg EC daily, and if he has recurrence then would change it to Eliquis 2.5 mg BID. Subjective Date/time seen: 04/03/22 08:08 Reports abdominal discomfort/tenderness and constipation. No chest pains. Has sob. Exam Const: General: cooperative, healthy appearing and comfortable Resp: Auscultation: no crackles, no rales, no rhonchi, no wheezes and diminished lung sounds Cardio: Jugular venous distension: no JVD Rate: tachycardic Rhythm: regular rhythm Heart sounds: no murmurs Peripheral pulses: dorsalis pedis present GI: GI Palp: Yes abdominal tenderness and Yes Soft to palpation Neuro: General: oriented to person, oriented to place and oriented to time Extrem: Right lower extremity: edema Left lower extremity: edema Other: Mild edema of lower extremities. Objective Data Vital Signs Vital Signs: Vital Signs - 24 hr 04/02/22 08:26 04/02/22 08:39 04/02/22 10:00 Temperature Pulse Rate 94 Respiratory Rate Blood Pressure Pulse Oximetry 98 Oxygen Delivery Nasal Cannula Nasal Cannula Oxygen Flow Rate 1 2 Fraction of Inspired Oxygen 04/02/22 12:00 04/02/22 12:00 04/02/22 12:00 Temperature 97.1 F L Pulse Rate 92 92 Respiratory Rate 24 H Blood Pressure 96/60 L Pulse Oximetry 94 Oxygen Delivery Room Air Oxygen Flow Rate Fraction of Inspired Oxygen 04/02/22 13:20 04/02/22 14:00 04/02/22 16:00 Temperature 96.9 F L Pulse Rate 116 H 110 H Respiratory Rate 20 Blood Pressure 92/58 L Pulse Oximetry 93 Oxygen Delivery Room Air Oxygen Flow Rate Fraction of Inspired Oxygen 04/02/22 16:00 04/02/22 16:00 04/02/22 18:00 Temperature Pulse Rate 101 H 83 Respiratory Rate Blood Pressure Pulse Oximetry Oxygen Delivery Room Air Oxygen Flow Rate Fraction of Inspired Oxygen 04/02/22 20:00 04/02/22 21:09 04/02/22 21:05 Temperature 96.9 F L Pulse Rate 83 79 Respiratory Rate 24 H 29 H Blood Pressure 87/63 L Pulse Oximetry 93
[2022-04-03 08:25] LABS: Glucose Point of Care 103 mg/dl (65-105)
[2022-04-03] MEDS: AMIODARONE 360 MG/D5W 200 ML 360 MG/200 ML BAG 16.67 MG IV CONT (08:46)
[2022-04-03] MEDS: GABAPENTIN 100 MG CAPSULE 200 MG PO ×2 (08:57→18:31)
[2022-04-03] MEDS: FENOFIBRATE 160 MG TABLET PO (08:57)
[2022-04-03] MEDS: ENOXAPARIN 30 MG/0.3 ML SYRINGE SUB-Q (08:57)
[2022-04-03] MEDS: cycloSPORINE 0.4 ML OPHTH SOLUTION 2 DROP EACH EYE ×3 (08:57→18:31)
[2022-04-03] MEDS: OMEGA 3 POLYUNSAT FATTY ACIDS 1 GM CAP PO ×2 (08:57→18:31)
--- NOTE | 2022-04-03 10:14 | P.PNNP_ITS ---
Progress Note: A&P Assessment and Plan (1) IVANA (acute kidney injury): Code(s): N17.9 - Acute kidney failure, unspecified Status: Acute Assessment and Plan: * baseline creatinine seems to run 1.2 - 1.4mg/dl (at best) * clear fluctuations noted whenever he is hospitalized (arguing he likely has some baseline CKD) * several factors contributing: * aggressive IV diuresis * relative hypotension in the last 24 hours * depressed EF/cardiomyopathy (element of cardiorenal syndrome) * infection/possible early sepsis (pneumonia) * evaluation to date: * urine electrolyte prerenal (but this could be reflective of depressed EF) * urine eosinophils negative * CT of abdomen without mention of obstruction * continue efforts to optimize hemodynamics * hold ARB * follow repeat labs and UOP (2) Acute respiratory failure with hypoxia: Code(s): J96.01 - Acute respiratory failure with hypoxia Status: Acute Assessment and Plan: * likely secondary to pneumonia, CHF, and pleural effusions * continue interventions as tolerated (3) CHF (congestive heart failure): Qualifiers: Heart failure chronicity: acute Heart failure type: unspecified Qualified Code(s): I50.9 - Heart failure, unspecified Code(s): I50.9 - Heart failure, unspecified Status: Acute Assessment and Plan: * as noted by elevated BNP, CXR findings (cardiomegaly and pleural effusions), and BLE edema * Cardiology following * Echo results noted (EF ~ 35 - 40% with suggestive takotsubo cardiomyopathy) * benefit to use of dobutamine or other ionotropic agents? (defer to Cardiology) (4) Pneumonia: Qualifiers: Laterality: right Lung location: upper lobe of lung Pneumonia type: due to unspecified organism Qualified Code(s): J18.9 - Pneumonia, unspecified organism Code(s): J18.9 - Pneumonia, unspecified organism Status: Acute Assessment and Plan: * on antibiotics * follow culture data * COVID-19/Influenza negative * Pulmonary recommendations noted (possible thoracentesis) (5) Hypertension: Code(s): I10 - Essential (primary) hypertension Status: Chronic Assessment and Plan: * relative hypotension noted * holding BP medications with parameters * follow trend of hemodynamics (6) Diabetes: Code(s): E11.9 - Type 2 diabetes mellitus without complications Status: Chronic Assessment and Plan: * follow accuchecks * glycemic control Will continue to follow. Subjective Date/time seen: 04/03/22 10:14 No apparent distress voiced at the time of my visit; reports shortness of breath stable (may be a bit better) currently; no new issues/events overnight or earlier this morning; no apparent distress. Exam Narrative: General: WD/WN male in NAD Heart: normal S1 and S2; no rub Lungs: decreased breath sounds at bases Abdomen: soft, nontender, nondistended, positive bowel sounds Extremities: no cyanosis or clubbing; 1+ edema Skin: warm and intact Objective Data Vital Signs Vital Signs: Vital Signs Temp Pulse Resp BP Pulse Ox O2 Del Method O2 Flow Rate 04/03/22 08:00 76 20 92 High Flow Nasal Cannula 2 04/03/22 10:00 76 04/03/22 08:00 72 04/03/22 08:46 73 99/65 L 04/03/22 08:46 73 04/03/22 08:00 36.3 C L 7
--- NOTE | 2022-04-03 10:14 | PM.PNNEP ---
Progress Note: A&P Assessment and Plan (1) IVANA (acute kidney injury): Code(s): N17.9 - Acute kidney failure, unspecified Status: Acute Assessment and Plan: baseline creatinine seems to run 1.2 - 1.4mg/dl (at best) clear fluctuations noted whenever he is hospitalized (arguing he likely has some baseline CKD) several factors contributing: aggressive IV diuresis relative hypotension in the last 24 hours depressed EF/cardiomyopathy (element of cardiorenal syndrome) infection/possible early sepsis (pneumonia) evaluation to date: urine electrolyte prerenal (but this could be reflective of depressed EF) urine eosinophils negative CT of abdomen without mention of obstruction continue efforts to optimize hemodynamics hold ARB follow repeat labs and UOP (2) Acute respiratory failure with hypoxia: Code(s): J96.01 - Acute respiratory failure with hypoxia Status: Acute Assessment and Plan: likely secondary to pneumonia, CHF, and pleural effusions continue interventions as tolerated (3) CHF (congestive heart failure): Qualifiers: Heart failure chronicity: acute Heart failure type: unspecified Qualified Code(s): I50.9 - Heart failure, unspecified Code(s): I50.9 - Heart failure, unspecified Status: Acute Assessment and Plan: as noted by elevated BNP, CXR findings (cardiomegaly and pleural effusions), and BLE edema Cardiology following Echo results noted (EF ~ 35 - 40% with suggestive takotsubo cardiomyopathy) benefit to use of dobutamine or other ionotropic agents? (defer to Cardiology) (4) Pneumonia: Qualifiers: Laterality: right Lung location: upper lobe of lung Pneumonia type: due to unspecified organism Qualified Code(s): J18.9 - Pneumonia, unspecified organism Code(s): J18.9 - Pneumonia, unspecified organism Status: Acute Assessment and Plan: on antibiotics follow culture data COVID-19/Influenza negative Pulmonary recommendations noted (possible thoracentesis) (5) Hypertension: Code(s): I10 - Essential (primary) hypertension Status: Chronic Assessment and Plan: relative hypotension noted holding BP medications with parameters follow trend of hemodynamics (6) Diabetes: Code(s): E11.9 - Type 2 diabetes mellitus without complications Status: Chronic Assessment and Plan: follow accuchecks glycemic control Will continue to follow. Subjective Date/time seen: 04/03/22 10:14 No apparent distress voiced at the time of my visit; reports shortness of breath stable (may be a bit better) currently; no new issues/events overnight or earlier this morning; no apparent distress. Exam Narrative: General: WD/WN male in NAD Heart: normal S1 and S2; no rub Lungs: decreased breath sounds at bases Abdomen: soft, nontender, nondistended, positive bowel sounds Extremities: no cyanosis or clubbing; 1+ edema Skin: warm and intact Objective Data Vital Signs Vital Signs: Vital Signs Temp Pulse Resp BP Pulse Ox O2 Del Method O2 Flow Rate 04/03/22 08:00 76 20 92 High Flow Nasal Cannula 2 04/03/22 10:00 76 04/03/22 08:00 72 04/03/22 08:46 73 99/65 L 04/03/22 08:46 73 04/03/22 08:00 36.3 C L 71 20 99/65 L 92 04/03/22 02:00 81 23 H 93 BiPAP 04/03/22 04:00 70 04/03/22 04:00 36.1 C L 87 20 90/57 L 92 04/03/22 03:49 BiPAP 04/03/22 00:00 76 04/02/22 20:00 84 04/03/22 00:00 36.1 C L 76 24 H 92/65 L 97 04/03/22 00:00 BiPAP 04/02/22 23:10 74 04/02/22 20:00 Room Air 04/02/22 21:05 95 Nasal Cannula 3 04/02/22 21:09 79 29 H 96 BiPAP 04/02/22 20:00 36.1 C L 83 24 H 87/63 L 93 04/02/22 18:00 83 04/02/22 16:00 Room Air 04/02/22 16:00 101 H 04/02/22 16:00 36.1 C L 110 H 20 92/
[2022-04-03 11:59] LABS: Glucose Point of Care 137 mg/dl (65-105)
[2022-04-03] MEDS: polyethylene glycoL 3350 17 GM POWD.PACK PO (14:23)
[2022-04-03] MEDS: ASPIRIN 325 MG ENTERIC TABLET PO (14:23)
[2022-04-03] MEDS: AZTREONAM 2 GM in SODIUM CHLORIDE 0.9% IV 100 ML 200 ML IVPB (14:24)
--- NOTE | 2022-04-03 15:21 | PM.TDS ---
Transfer Discharge Sum: Prov Provider Date of admission: 03/30/22 16:07 Primary care physician: Alonso Mcgarry, MD Admitting clinician: Matti Meza MD Consults: 03/30/22 16:09 Consult to Physician Routine Comment: Consulting Provider: Paul Bryant Reason for consultation: cardiology Has provider been notified: Yes 04/01/22 Consult to Dietitian Routine Reason for Consult:: poor appetite Consult to Physician Routine Comment: call to exchange 04/01/22 at 0415 KDRN Consulting Provider: Diaz Freeman inclusion internship/MD group to consult: Nephrology Reason for consultation: Oliguria Has provider been notified: Yes 04/01/22 08:34 Consult to Physician Routine Comment: Called Dr and notified him of consults Consulting Provider: Alonso Alcala inclusion internship/MD group to consult: pulmonary Reason for consultation: pneumonia Has provider been notified: Yes DS: Admitting Diagnosis Discharge Date 04/03/2022 Admitting Diagnosis shortness of breath DS: Discharge Diagnosis Discharge Diagnosis (1) Pneumonia: Qualifiers: Laterality: right Lung location: upper lobe of lung Pneumonia type: due to unspecified organism Qualified Code(s): J18.9 - Pneumonia, unspecified organism Code(s): J18.9 - Pneumonia, unspecified organism Status: Acute (2) Acute respiratory failure with hypoxia: Code(s): J96.01 - Acute respiratory failure with hypoxia Status: Acute (3) CHF (congestive heart failure): Qualifiers: Heart failure type: unspecified Heart failure chronicity: acute Qualified Code(s): I50.9 - Heart failure, unspecified Code(s): I50.9 - Heart failure, unspecified Status: Acute (4) Type 2 diabetes mellitus with hyperglycemia, with long-term current use of insulin: Code(s): E11.65 - Type 2 diabetes mellitus with hyperglycemia; Z79.4 - FDC (current) use of insulin Status: Acute Plan # Acute hypoxic respiratory failure multifactorial right upper lobe pneumonia and congestive heart failure. Oxygen supplementation. Went to distress 03/31/2022 and placed on BiPAP. This is likely related to congestive heart failure and volume overload. Closely monitor volume status currently on BiPAP p.r.n. and oxygen supplementation # right upper lobe pneumonia on Levaquin as allergic to penicillin. Urine Legionella pneumococcal antigen ordered which is pending mycoplasma titers have been ordered. Blood culture pending. COVID negative. Influenza negative. Pulmonary consultation Antibiotics has been switched to vancomycin and aztreonam. Levaquin continued for atypical coverage . pulmonary on board # congestive heart failure. Newly diagnosed chest x-ray with cardiomegaly and bilateral pleural effusion associated lower extremity edema. BNP elevated at 3840. Started on IV diuretics. Cardiology on board. Echo echo with new wall motion abnormality suggestive of takotsubo cardiomyopathy along with ejection fraction down to 35-40%. On beta-norman and diuretic medication titration limited due to hypotension and concurrently renal failure Troponin negative. continue to hold diuresis for now function recovers # acute renal failure creatinine worsened since admission up to 2.6 12/2021. Baseline creatinine 0.8. Likely due to over-diuresis and hypotension overnight. With IV fluid bolus he went into respiratory distress and so will avoid any further fluid boluses. Blood pressure is borderline normal currently and will continue to monitor. Renal has been consulted. CT abdomen pelvis with no signs of obstructive uropathy. Veliz has been in place and will continue to monitor urine output renal function stable but yet to recover # diabetes Mellitus type 2 on insulin at home 50/50 30 in the morning and at 2:00 a.m.. Currently on SSI. continue home medication. Continue Hypoglycemia protocol # bilateral pleural effusions pulmonary has
[2022-04-03 17:39] LABS: Glucose Point of Care 129 mg/dl (65-105)
[2022-04-03 20:47] LABS: Glucose Point of Care 134 mg/dl (65-105)
[2022-04-03] MEDS: AMIODARONE HCL 200 MG TABLET PO (20:48)
[2022-04-04] VITALS: PULSE 69
== END 2022-04-04 00:22 | disposition short-term general hospital (02) | DRG 193 ==
LOC: ANHED 13:47 → ANH3MEDSUR 17:49 → ANHIMU 04-01 05:08
PROVIDERS: Internal Medicine; Internal Medicine Pulmonary Disease; Admitting Provider Family Medicine; Emergency Provider Emergency Medicine; PCP Internal Medicine Endocrinology, Diabetes & Metabolism; Visit Provider Internal Medicine
DX: J18.9 Pneumonia, unspecified organism (principal); J96.01 Acute respiratory failure with hypoxia; I50.41 Acute combined systolic (congestive) and diastolic (congestive) heart failure; N17.9 Acute kidney failure, unspecified; Z20.822 Contact with and (suspected) exposure to COVID-19; I11.0 Hypertensive heart disease with heart failure; I48.0 Paroxysmal atrial fibrillation; E78.5 Hyperlipidemia, unspecified; M21.372 Foot drop, left foot; M21.371 Foot drop, right foot; E11.42 Type 2 diabetes mellitus with diabetic polyneuropathy; E11.65 Type 2 diabetes mellitus with hyperglycemia; E03.9 Hypothyroidism, unspecified; K59.00 Constipation, unspecified; Z87.891 Personal history of nicotine dependence; Z79.4 Long term (current) use of insulin; Z79.899 Other long term (current) drug therapy; Z85.46 Personal history of malignant neoplasm of prostate; Z85.51 Personal history of malignant neoplasm of bladder; Z88.0 Allergy status to penicillin; Z98.1 Arthrodesis status; Z98.42 Cataract extraction status, left eye; Z98.41 Cataract extraction status, right eye; Z96.1 Presence of intraocular lens
CPT/HCPCS: 36415; 36600; 71045; 71046; 71250; 74176; 80048; 80053; 81001; 82570; 82805; 82948; 83615; 83735; 83880; 84300; 84484; 84540; 85025; 85999; 86738; 87040; 87086; 87449; 87804; 87899; 93005; 93306; 94002; 94003; 94640; 94660; 96374; 97110; 97161; 97165; 97530; 97535; 99285; A9270; C9803; J0282; J1650; J1815; J1940; J1956; J3370; J7040; J7050; U0003; U0005